=== PATIENT | male | born 1950 | race Caucasian/White ===

== ENCOUNTER 2020-05-14 17:11 | Outpatient (REF) | payer MEDICARE, SELFPAY ==
[2020-05-16 14:19] LABS: COVID-19 RT-PCR UVMMC Result Negative (Negative)
== END 2020-05-14 17:12 | disposition home or self-care (01) ==
LOC: NCHCN 17:11
PROVIDERS: PCP Family Medicine; Visit Provider Family Medicine
DX: Z11.52 Encounter for screening for COVID-19 (principal)
CPT/HCPCS: U0003

== ENCOUNTER 2020-07-03 22:39 | Outpatient (REF) | payer MEDICARE, SELFPAY ==
[2020-07-03 22:08] LABS: Calculated LDL 97 mg/dL (<100); Cholesterol 164 mg/dL (<200); HDL Cholesterol 55 mg/dL (40-60); Triglyceride 63 mg/dL (<150)
== END 2020-07-03 22:40 | disposition home or self-care (01) ==
LOC: NCHCN 22:39
PROVIDERS: PCP Family Medicine; Visit Provider Family Medicine
DX: Z13.220 Encounter for screening for lipoid disorders (principal)
CPT/HCPCS: 80061

== ENCOUNTER 2020-10-30 14:47 | Outpatient (REF) | payer MEDICARE, SELFPAY ==
[2020-11-01 09:57] LABS: Hepatitis C Ab w Rflx HCV PCR Negative (Negative)
== END 2020-10-30 14:48 | disposition home or self-care (01) ==
LOC: NCHCN 14:47
PROVIDERS: PCP Family Medicine; Visit Provider Registered Nurse
DX: Z11.59 Encounter for screening for other viral diseases (principal)
CPT/HCPCS: 86803

== ENCOUNTER 2021-12-19 14:40 | Outpatient (REF) | payer MEDICARE, MEDICAID, SELFPAY ==
[2021-12-19 21:09] LABS: Anion Gap 9.4 mmol/L (3-11); BUN 35 mg/dL (7-18); CO2 25.6 mmol/L (21.0-32.0); CREATININE 1.8 mg/dL (0.70-1.30); Calcium 8.8 mg/dL (8.5-10.1); Chloride 106 mmol/L (98-107); Estimated GFR 39.75 (mL/min/1.73m2); Glucose 93 mg/dL (74-106); Potassium 4.6 mmol/L (3.5-5.1); Sodium 141 mmol/L (136-145)
== END 2021-12-19 14:41 | disposition home or self-care (01) ==
LOC: NCHCN 14:40
PROVIDERS: PCP Family Medicine; Visit Provider Family Medicine
DX: I26.99 Other pulmonary embolism without acute cor pulmonale (principal); J18.9 Pneumonia, unspecified organism; I10 Essential (primary) hypertension
CPT/HCPCS: 80048

== ENCOUNTER 2022-05-29 13:44 | Outpatient (REF) | payer MEDICARE, MEDICAID, SELFPAY ==
[2022-05-29 20:56] LABS: Anion Gap 8.5 mmol/L (3-11); BUN 42 mg/dL (7-18); CO2 25.5 mmol/L (21.0-32.0); CREATININE 1.7 mg/dL (0.70-1.30); Chloride 107 mmol/L (98-107); Estimated GFR 42.57 (mL/min/1.73m2); Glucose 106 mg/dL (74-106); Potassium 4.7 mmol/L (3.5-5.1); Sodium 141 mmol/L (136-145)
== END 2022-05-29 13:45 | disposition home or self-care (01) ==
LOC: NCHCN 13:44
PROVIDERS: PCP Family Medicine; Visit Provider Registered Nurse
DX: I10 Essential (primary) hypertension (principal); Z12.5 Encounter for screening for malignant neoplasm of prostate
CPT/HCPCS: 80048; 84153

== ENCOUNTER 2022-10-20 11:48 | Emergency (ER) | payer MEDICARE, MEDICAID, SELFPAY ==
[2022-10-20 11:57] VITALS: BP 97/62; PULSE 89; RESP 14; TEMP 37; O2SAT 97
[2022-10-20 13:11] VITALS: BP 107/76; PULSE 76; RESP 17; O2SAT 96
--- NOTE | 2022-10-20 14:32 | W.ED.GENAD ---
Discharge Plan Disposition Patient Disposition: Home Condition: Good Discharge Details Clinical Impression: Gout Primary Care Provider: Beckie Bautista ED Provider: Dora Vaughan Home Meds and New Rx's Prescriptions: New indomethacin 50 mg capsule 50 mg PO TID Qty: 21 0RF Rx Instructions: administer with food or milk Continued amlodipine 5 mg Tablet 5 mg PO DAILY benazepril 20 mg Tablet 20 mg PO DAILY Xarelto 20 mg Tablet 20 mg PO QPM Rx Instructions: must administer with evening meal cephalexin 500 mg Capsule 500 mg PO QID Discharge Instructions Instructions: Gout (ED) Additional Instructions: Take the Indocin 50 mg 3 times per day for 7 days. Call your primary care doctor tomorrow for follow-up appointment for next week. The joint at the base of your great toe may get a lot redder and this would be normal with gout. Let your primary care doctor know that we did send a uric acid level. She can start additional medications as needed. Discharge Data Discharge Date/Time-TO BE ENTERED AT DEPARTURE: 10/20/22 14:49 Medical Decision Making Patient was reassured that this is not arterial insufficiency but simply gout. I ordered a uric acid on him but he was discharged without this being done. He was seen in the waiting room after giving me permission to interview and examine him. It was quite a busy day. I explained to him what gout is and how it is treated. He is on Xarelto but will only be taking the Indocin for short period of time. I will not add a PPI at this time. He does promise to call his doctor for follow-up this week. Medical Records Medical records reviewed: Yes I reviewed the patient's medical records. HPI General Date/Time Provider Initiated Documentation: 10/20/22 13:05. HPI Narrative: This 72-year-old male patient presents with a chief complaint of redness and pain in his left great toe. Patient tells me that this began about a week ago but was not really bad. It was a little sore to start with and then got red over a period of days. Its been worse over the past 2 days and he felt like he needed to come in. Patient does have a history of arterial insufficiency in his legs. He is seeing vascular surgery. He has had no fever or chills. His great toe is red asked that his MTP joint. He has no numbness, pallor, or bluish discoloration. Related Data Home Medications Medication Instructions Recorded Confirmed amlodipine 5 mg tablet 5 mg PO DAILY 10/20/22 10/20/22 benazepril 20 mg tablet 20 mg PO DAILY 10/20/22 10/20/22 cephalexin 500 mg capsule 500 mg PO QID 10/20/22 10/20/22 indomethacin 50 mg capsule 50 mg PO TID #21 caps 10/20/22 rivaroxaban 20 mg tablet (Xarelto) 20 mg PO QPM 10/20/22 10/20/22 Previous Rx's Medication Instructions Recorded indomethacin 50 mg capsule 50 mg PO TID #21 caps 10/20/22 Allergies Allergy/AdvReac Type Severity Reaction Status Date / Time No Known Allergies Allergy Unverified 10/20/22 12:02 General Stated Complaint: Orthopedic VIRAL: 4 Review of Systems Constitutional Constitutional: Denies fever(s) and Denies headache(s) Eyes Eyes: Denies blurry vision and Reports other (no redness) ENT Ears, Nose, Mouth, and Throat: Denies dizziness, Denies otalgia, Denies headache(s), Denies nasal congestion, Denies nasal discharge, Denies neck pain and Denies odynophagia Cardiovascular Cardiovascular: Denies chest pain, Denies palpitations and Denies dyspnea Respiratory Respiratory: Denies cough and Denies dyspnea Gastrointestinal Gastrointestinal: Denies abdominal pain, Denies diarrhea, Denies nausea, Denies odynophagia and Denies vomiting Genitourinary Genitourinary: Denies difficulty urinating and Denies dysuria Musculoskeletal Musculoskeletal: Denies neck pain, Denies numbness and Reports other (Has left first great toe redness and pain) Integumentary/Breasts Skin/Breast: Denies erythema and Denies rash Neurologic Neurologic: Denies dizziness, Denies headache(s) and Denies numbness Endocrine Endocrine: Denies palpitations PFSH All Active Problems Gout (Chronic) Social History Smoking/Tobacco Use Status: Never Smoking risk assessment performed?: Yes Alcohol Intake: never Drug use: Never Substance use type: does not use Housing: apartment Do you feel safe at home: Yes Do you feel safe in your relationship?: Yes Exam Const General: no acute distress, well developed, well groomed and not in acute distress Nutritional Appearance: well nourished Orientation: alert and oriented x3 [facility] Head: normocephalic and atraumatic Ears: external ears normal Mouth: oropharynx normal and moist mucous membranes Throat: posterior oropharynx normal Eyes Conjunctivae: conjunctivae normal Neck Neck: full ROM and supple Chest Chest: normal inspection of the chest Resp Effort & Inspection: normal respiratory effort Auscultation: clear to auscultation bilaterally Cardio Rate: regular rate Rhythm: regular rhythm Heart Sounds: no murmurs and no rubs GI Inspection: normal to inspection Palpation: soft, nontender and other (non distended) Auscultation: normal bowel sounds Skin General skin exam: no rashes or lesions noted and other (pink, warm, dry) Neuro General: patient alert, patient awake and patient oriented x3 Speech: speech normal Motor: other (BOWENS) Sensory Exam: no sensory deficits noted Extrem General: normal to inspection (Except left first MTP joint, red and hot to touch), full ROM and pedal edema present Other: Patient had no tenderness to palpation of the left toe movement until I got to his great toe. Movement of his first MTP joint was exquisitely tender and this is where he has redness. Psych Mental Status: mental status grossly normal Speech and Movement: speech and movement normal Affect: normal affect Course Vital Signs Vital signs: Vital Signs Temperature 37.0 C 10/20/22 11:57 Pulse 89 10/20/22 11:57 Respiratory Rate 14 10/20/22 11:57 Blood Pressure 97/62 L 10/20/22 11:57 Pulse Oximetry 97 10/20/22 11:57 Temperature 37.0 C 10/20/22 11:57 Temperature Source Temporal Artery Scan 10/20/22 11:57 Pulse 76 10/20/22 13:11 Respiratory Rate 17 10/20/22 13:11 Respiratory Effort Normal 10/20/22 12:01 Blood Pressure 107/76 10/20/22 13:11 Blood Pressure Position Sitting 10/20/22 11:57 Pulse Oximetry 96 10/20/22 13:11 Oxygen Delivery Method Room Air 10/20/22 13:11 Oxygen Flow Rate 0 10/20/22 13:11 Pain Level 6 10/20/22 11:57
[2022-10-20] MEDS: Indomethacin 25 MG CAP 50 MG PO (14:49)
--- NOTE | 2022-10-20 15:19 | NUR.NOTE ---
Nursing Note: Uric acid level was not drawn prior to PT being discharged.
== END 2022-10-20 14:49 | disposition home or self-care (01) ==
PROVIDERS: Emergency Provider Emergency Medicine; PCP Family Medicine
DX: M10.9 Gout, unspecified (principal)
CPT/HCPCS: 99283; 99284

== ENCOUNTER 2023-04-27 08:28 | Outpatient (REF) | payer MEDICARE, MEDICAID, SELFPAY ==
--- OUTSIDE RECORDS SUMMARY | 2023-04-28 08:31 | XMS_ITS | CCD ---
Author Name Unknown Address [address] [place] [address] [phone] Organization Unknown Address [address] [place] [address] [phone] Care Team Providers Care Explosive Operator Fuse Name Role Phone FRANCISCO LAZAR Attending Physician [phone] FRANCISCO LAZAR Er Physician 7 [phone] BOO Lora Registered Nurse [phone] BHARTI Spears Registered Nurse [phone] Vital Signs Vital Sign Value Unit Date/Time Recent/Initial ? BMI (Body Mass Index) 21.24 kg/m^2 10/29/2022 16: 13 Initial VS Weight Measured 148 lbs 10/29/2022 16:13 Ini tial VS Height 70 in 10/29/2022 16:13 Initial VS BSA (Body Surface Area) 1.82 m^2 10/29/2022 1 6:13 Initial VS BP Systolic 100 mmHg 10/29/2022 16:13 Initial VS BP Diastolic 75 mmHg 10/29/2022 16:13 Initia l VS Respiratory Rate 19 bpm 10/29/2022 16:13 In itial VS Heart Rate 75 bpm 10/29/2022 16:13 Initial VS O2 % BldC Oximetry 99 % 10/29/2022 16:13 Initial VS Body Temperature 36.4 degrees 10/29/2022 16:13 In itial VS BP Systolic 124 mmHg 10/29/2022 20:21 Most Re cent VS BP Diastolic 89 mmHg 10/29/2022 20:21 Most R ecent VS Respiratory Rate 18 bpm 10/29/2022 20:[address] Recent VS Heart Rate 64 bpm 10/29/2022 20:21 Most Rec ent VS O2 % BldC Oximetry 97 % 10/29/2022 20:21 Most Recent VS Allergies Allergy Code Allergy Type Reaction Status No Known Drug Allergies 0 No known drug allergies Active HONEY 0 Food allergy SOB Active Procedures Unknown or Not Available. History of Immunizations Unknown or Not Available. 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 2 BILIRUBIN TOTAL 1975-2 0.5 mg/dL L=0.0 H=1 .3 ALK. PHOS. 6768-6 72 U/L L=46 H=116 SGOT (AST) 1920-8 25 U/L L=15 H=37 SGPT (ALT) 1742-6 28 U/L L=12 H=78 TOTAL PROTEIN 2885-2 6.9 gm/dL L=6.0 H=8.0 ALBUMIN 1751-7 2.6 gm/dL L=3.4 H=5.0 AGE 72 years eGFR (non-Afr.Amer.) 38645-4 36 mL/min eGFR (Afr-Omani) 36814-8 44 mL/min CBC W/ DIFFERENTIAL* - [facility] ct Date/Time: 10/29/2022 17:35 Test Name Code Test Result Test Units Test Ref Rang e WBC 6690-2 6.65 th/cmm L=5.00 H=10.00 NEUT % 70.9 % L=40.0 H=80.0 LYMPH % 15.5 % L=10.0 H=50.0 MONO % 20544-1 12.0 % L=2.0 H=12.0 EOS % 0.8 % L=0.0 H=8.0 BASO % 0.5 % L=0.0 H=3.0 IG % 2514-8 0.3 % L=0.0 H=1.1 NRBC % 07450-3 0.0 % L=0.0 H=0.0 NEUT abs count 751-8 4.7 th/cmm L=1.6 H=8. 4 LYMPH abs count 731-0 1.0 th/cmm L=1.5 H=4 .0 MONO abs count 742-7 0.8 th/cmm L=0.2 H=1. 0 EOS abs count 711-2 0.1 th/cmm L=0.0 H=0.5 BASO abs count 704-7 0.0 th/cmm L=0.0 H=0. 2 IG abs count 45466-7 0.0 th/cmm L=0.0 H=0.1 NRBC abs count 98825-2 0.0 mil/cmm L=0.0 H=0. 0 RBC 789-8 4.03 mil/cmm L=4.30 H=6.20 HEMOGLOBIN 718-7 13.4 gm/dL L=13.0 H=17.0 HEMATOCRIT 4544-3 41 % L=45 H=52 MCV 787-2 101 fL L=82 H=92 MCH 785-6 33.3 pg L=27.0 H=31.0 MCHC 786-4 33.1 % L=32.0 H=36.0 RDW-SD 788-0 45.1 fL L=39.0 H=49.0 PLATELET COUNT 777-3 264 th/cmm L=150 H=45 0 CULT URINE CULTURE* - Collec t Date/Time: 10/29/2022 16:20 Test Name Code Test Result Test Units Test Ref Rang e COLLECTION MODE: 13522-7 CLEAN CATCH N/A URINALYSIS WITH REFLEX CULT IF POSITIVE* - Collect Date/Time: 10/29/2022 16:20 Test Name Code Test Result Test Units Test Ref Rang e COLLECTION MODE: 63458-8 CLEAN CATCH N/A Color 5778-6 YELLOW N/A yellow Appearance 5767-9 CLEAR N/A clear Glucose urine 96495-4 NEGATIVE N/A negative mg /dl Bilirubin 5770-3 NEGATIVE N/A negative Ketones 2514-8 NEGATIVE N/A negative mg/dl Spec gravity 5811-5 1.015 N/A 1.003 - 1.03 0 pH urine 2756-5 6.0 N/A 5.0 - 7.0 Protein 35985-6 NEGATIVE N/A negative mg/dl Urobilinogen 87780-2 0.2 N/A <or= 1 EU/dl Nitrite. 5802-4 NEGATIVE N/A negative Blood 5794-3 SMALL N/A negative Leukocytes. SMALL N/A negative MICROSCOPIC INDICATED N/A WBCs. 88471-0 >100 N/A 0-5 / hpf RBCs 60134-0 0-5 N/A 0-5 / hpf Epith cells 04091-4 none N/A 0-5 / hpf Crystals none N/A none Bacteria minimal N/A none Mucus 8247-9 present N/A none Casts 15507-0 0-5 N/A none /lpf Cast types fine gran N/A Active Medications Medications Administered During Visit Medication Dose Units Frequency Route Date/Time of Last Dose CIPROFLOXACIN TABLET: 500MG 500 MG X1 PO 10/29/2022 20:22 CIPROFLOXACIN TABLET: 500MG 1500 MG X1 PO 10/29/2022 20:23 Encounters Encounter Diagnosis Diagnosis Code Start Date Urinary tract infection, site not specified N390 10/29/2022 Social History Smoking Status Code Start Date End Date Never smoker [id number] Patient Decision Aids Unknown or Not Available. Discharge Instructions You were admitted to [facility] on 10/29/2022 16:07 with a principal diagnosis of Urinary tract infection, site not specified You had the following tests done:CBC W/ DIFFERENTIAL*COMPREHENSIVE METABOLIC PANEL (CMP)CULT URINE CULTURE*URINALYSIS WITH REFLEX CULT IF POSITIVE* You were discharged from [facility] on 10/29/2022 20:23 Should you have any questions prior to discharge, please contact a member of your healthcare team. If you have left the hospital and have any questions, please contact your primary care physician. Chief Complaint and Reason For Visit Chief Complaint Date of Onset KIDNEY INFECTION 10/29/2022 Function Status Unknown or Not Available. Plan of Care Unknown or Not Available. Referral/Transition of Care Unknown or Not Available.
--- OUTSIDE RECORDS SUMMARY | 2023-04-28 08:31 | XMS_ITS | CCD ---
Author Name Unknown Address [address] [place] [address] [phone] Organization Unknown Address [address] [place] [address] [phone] Care Team Providers Care Phlebotomist Lab Assistant Name Role Phone ERVIN MENDEZ Attending Physician [phone] Vital Signs Unknown or Not Available. Allergies Allergy Code Allergy Type Reaction Status No Known Drug Allergies 0 No known drug allergies Active HONEY 0 Food allergy SOB Active Procedures Unknown or Not Available. History of Immunizations Unknown or Not Available. 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 114802155 Active Results CULT URINE CULTURE* - [facility] t Date/Time: 10/11/2022 12:00 Test Name Code Test Result Test Units Test Ref Rang e COLLECTION MODE: 35848-8 NOT STATED N/A Active Medications Medication Code Dose Units Frequency Route Modificatio n Start Date/Time Keflex 500MG Oral Capsule 649592 1 CAPSULE FOUR TIMES A DAY ORAL 10/18/2022 15:06 Prescription Detail TAKE 1 CAPSULE ORAL FOUR TIMES A DAY Benazepril HCl AvPak 20MG Oral Tablet 295694 1 TABLET DAILY ORAL 11/26/2021 13:16 Prescription Detail TAKE 1 TABLET ORAL DAILY amLODIPine Besylate 5MG Oral Tablet 491310 5 MILLIGRAMS BEDTIME ORAL 022 11:44 Prescription Detail TAKE 5 MILLIGRAMS ORAL BEDTIME Xarelto 20MG Oral Tablet 0545680 1 TABLET DAILY ORAL 11/27/19 22 10:44 Prescription Detail TAKE 1 TABLET ORAL DAILY STARTING 12/16(Af ter taking 15mg twice daily for 20 days) Medications Administered During Visit Unknown or Not Available. Encounters Encounter Diagnosis Diagnosis Code Start Date Nocturia [id number] 10/11/2022 Social History Smoking Status Code Start Date End Date Never smoker 163790256 Patient Decision Aids Unknown or Not Available. Discharge Instructions You were admitted to [facility] on 10/11/2022 13:01 with a principal diagnosis of Nocturia You had the following tests done:CULT URINE CULTURE* You were discharged from [facility] on 10/11/2022 13:01 Should you have any questions prior to discharge, please contact a member of your healthcare team. If you have left the hospital and have any questions, please contact your primary care physician. Chief Complaint and Reason For Visit Unknown or Not Available. Function Status Unknown or Not Available. Plan of Care Unknown or Not Available. Referral/Transition of Care Unknown or Not Available.
--- OUTSIDE RECORDS SUMMARY | 2023-04-28 08:31 | XMS_ITS | CCD ---
Author Name Unknown Address [address] [place] [address] [phone] Organization Unknown Address [address] [place] [address] [phone] Care Team Providers Care Field Cane Scale Clerk Name Role Phone FRANCISCO LAZAR Attending Physician [phone] FRANCISCO LAZAR Er Physician [phone] BHARTI Spears Registered Nurse [phone] Vital Signs Vital Sign Value Unit Date/Time Recent/Initial ? BMI (Body Mass Index) 21.41 kg/m^2 11/01/2022 17: 59 Initial VS Weight Measured 145 lbs 11/01/2022 17:59 Ini tial VS Height 69 in 11/01/2022 17:59 Initial VS BSA (Body Surface Area) 1.79 m^2 11/01/2022 1 7:59 Initial VS BP Systolic 106 mmHg 11/01/2022 17:59 Initial VS BP Diastolic 73 mmHg 11/01/2022 17:59 Initia l VS Respiratory Rate 18 bpm 11/01/2022 17:59 In itial VS Heart Rate 74 bpm 11/01/2022 17:59 Initial VS O2 % BldC Oximetry 97 % 11/01/2022 17:59 Initial VS Body Temperature 36.6 degrees 11/01/2022 17:59 In itial VS Allergies Allergy Code Allergy Type Reaction Status No Known Drug Allergies 0 No known drug allergies Active HONEY 0 Food allergy SOB Active Procedures Unknown or Not Available. History of Immunizations Unknown or Not Available. 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 Active Medications Unknown or Not Available. Medications Administered During Visit Unknown or Not Available. Encounters Encounter Diagnosis Diagnosis Code Start Date Contusion of left foot, initial encounter [id number] 11/01/2022 Social History Smoking Status Code Start Date End Date Never smoker 410538084 Patient Decision Aids Unknown or Not Available. Discharge Instructions You were admitted to [facility] on 11/01/2022 17:44 with a principal diagnosis of Contusion of left foot, initial encounter You were discharged from [facility] on 11/01/2022 19:00 Should you have any questions prior to discharge, please contact a member of your healthcare team. If you have left the hospital and have any questions, please contact your primary care physician. Chief Complaint and Reason For Visit Chief Complaint Date of Onset PAINFUL AND SWOLEN LT TOES 11/01/2022 Function Status Unknown or Not Available. Plan of Care Unknown or Not Available. Referral/Transition of Care Unknown or Not Available.
--- OUTSIDE RECORDS SUMMARY | 2023-04-28 08:32 | XMS_ITS | CCD ---
Author Name Unknown Address [address] [place] [address] [id number] Organization Unknown Address [address] [place] [address] [phone] Care Team Providers Care Research Statistician Name Role Phone ERVIN MENDEZ Attending Physician [phone] Vital Signs Unknown or Not Available. Allergies Allergy Code Allergy Type Reaction Status No Known Drug Allergies 0 No known drug allergies Active HONEY 0 Food allergy SOB Active Procedures Unknown or Not Available. History of Immunizations Unknown or Not Available. 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 004264965 Active Results CULT URINE CULTURE* - Colle t Date/Time: 09/15/2022 10:00 Test Name Code Test Result Test Units Test Ref Rang e COLLECTION MODE: 71031-6 CATH N/A Active Medications Medication Code Dose Units Frequency Route Modificatio n Start Date/Time Keflex 500MG Oral Capsule 778101 1 CAPSULE FOUR TIMES A DAY ORAL 10/18/2022 15:06 Prescription Detail TAKE 1 CAPSULE ORAL FOUR TIMES A DAY Benazepril HCl AvPak 20MG Oral Tablet 954908 1 TABLET DAILY ORAL 11/26/2021 13:16 Prescription Detail TAKE 1 TABLET ORAL DAILY amLODIPine Besylate 5MG Oral Tablet 051084 5 MILLIGRAMS BEDTIME ORAL 022 11:44 Prescription Detail TAKE 5 MILLIGRAMS ORAL BEDTIME Xarelto 20MG Oral Tablet 3334716 1 TABLET DAILY ORAL 11/27/19 22 10:44 Prescription Detail TAKE 1 TABLET ORAL DAILY STARTING 12/16(Af ter taking 15mg twice daily for 20 days) Medications Administered During Visit Unknown or Not Available. Encounters Encounter Diagnosis Diagnosis Code Start Date Lower urinary tract symptoms due to benign prostatic hypertrophy [id number] 09/15/2022 Social History Smoking Status Code Start Date End Date Never smoker 979051544 Patient Decision Aids Unknown or Not Available. Discharge Instructions You were admitted to on 09/15/2022 12:49 with a principal diagnosis of Benign prostatic hyperplasia with lower urinary tract symptoms You had the following tests done:CULT URINE CULTURE* You were discharged from on 09/15/2022 12:49 Should you have any questions prior to [...]
--- OUTSIDE RECORDS SUMMARY | 2023-04-28 08:32 | XMS_ITS | CCD ---
Author Name Unknown Address [address] [place] [address] [phone] Organization Unknown Address [address] [place] [address] [phone] Care Team Providers Care Wire Transfer Clerk Name Role Phone VANDA ORDONEZ Attending Physician [phone] Vital Signs Unknown or Not Available. Allergies Allergy Code Allergy Type Reaction Status No Known Drug Allergies 0 No known drug allergies Active HONEY 0 Food allergy SOB Active Procedures Unknown or Not Available. History of Immunizations Unknown or Not Available. 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 Active Medications Medication Code Dose Units Frequency Route Modificatio n Start Date/Time Keflex 500MG Oral Capsule 833617 1 CAPSULE FOUR TIMES A DAY ORAL 10/18/2022 15:06 Prescription Detail TAKE 1 CAPSULE ORAL FOUR TIMES A DAY Benazepril HCl AvPak 20MG Oral Tablet 378107 1 TABLET DAILY ORAL 11/26/2021 13:16 Prescription Detail TAKE 1 TABLET ORAL DAILY amLODIPine Besylate 5MG Oral Tablet 582337 5 MILLIGRAMS BEDTIME ORAL 022 11:44 Prescription Detail TAKE 5 MILLIGRAMS ORAL BEDTIME Xarelto 20MG Oral Tablet 6092522 1 TABLET DAILY ORAL 11/27/19 22 10:44 Prescription Detail TAKE 1 TABLET ORAL DAILY STARTING 12/16(Af ter taking 15mg twice daily for 20 days) Medications Administered During Visit Unknown or Not Available. Encounters Encounter Diagnosis Diagnosis Code Start Date Solitary pulmonary nodule R911 2022 Social History Smoking Status Code Start Date End Date Never smoker 610664668 Patient Decision Aids Unknown or Not Available. Discharge Instructions You were admitted to [facility] on 06/12/2022 14:57 with a principal diagnosis of Solitary pulmonary nodule You were discharged from [facility] on 06/12/2022 14:57 Should you have any questions prior to discharge, please contact a member of your healthcare team. If you have left the hospital and have any questions, please contact your primary care physician. Chief Complaint and Reason For Visit Chief Complaint Date of Onset PULMONARY NODULE Function Status Unknown or Not Available. Plan of Care Unknown or Not Available. Referral/Transition of Care Unknown or Not Available.
--- OUTSIDE RECORDS SUMMARY | 2023-04-28 08:32 | XMS_ITS | CCD ---
Author Name Unknown Address [address] [place] [address] [phone] Organization Unknown Address [address] [place] [address] [phone] Care Team Providers Care Surgical Consultant Name Role Phone PIERO NAJERA Attending Physician [phone] Vital Signs Unknown or Not Available. Allergies Allergy Code Allergy Type Reaction Status No Known Drug Allergies 0 No known drug allergies Active HONEY 0 Food allergy SOB Active Procedures Unknown or Not Available. History of Immunizations Unknown or Not Available. Problems Problem Code Start Date Resolved Date Status Pneumonia 560655473 Active Pleurisy 007129990 Active VICKI - acute kidney injury 22877498 Active Hypertension 83406051 Active CKD stage 3 835773422 Active Multiple subsegmental pulmon merlyn emboli without acute cor pulmonale 29906177 Acti ve Chronic DVT of right femoral vein 145474671 Active Results Unknown or Not Available. Active Medications Medication Code Dose Units Frequency Route Modificatio n Start Date/Time Keflex 500MG Oral Capsule 923180 1 CAPSULE FOUR TIMES A DAY ORAL 10/18/2022 15:06 Prescription Detail TAKE 1 CAPSULE ORAL FOUR TIMES A DAY Benazepril HCl AvPak 20MG Oral Tablet 639552 1 TABLET DAILY ORAL 11/26/2021 13:16 Prescription Detail TAKE 1 TABLET ORAL DAILY amLODIPine Besylate 5MG Oral Tablet 654307 5 MILLIGRAMS BEDTIME ORAL 022 11:44 Prescription Detail TAKE 5 MILLIGRAMS ORAL BEDTIME Xarelto 20MG Oral Tablet 6000743 1 TABLET DAILY ORAL 11/27/19 22 10:44 Prescription Detail TAKE 1 TABLET ORAL DAILY STARTING 12/16(Af ter taking 15mg twice daily for 20 days) Medications Administered During Visit Unknown or Not Available. Encounters Encounter Diagnosis Diagnosis Code Start Date Saddle embolus of pulmonary artery without acute cor pulmonale I2692 11/24/2021 Social History Smoking Status Code Start Date End Date Never smoker [id number] Patient Decision Aids Unknown or Not Available. Discharge Instructions You were admitted to [facility] on 11/24/2021 01:43 with a principal diagnosis of Saddle embolus of pulmonary artery without acute cor pulmonale You were discharged from [facility] on 11/26/2021 01:44 Should you have any questions prior to [...]
--- OUTSIDE RECORDS SUMMARY | 2023-04-28 08:32 | XMS_ITS | Patient Health Record ---
Author Name Unknown Organization [facility] Address [address] [place] [address] Care Team Providers Care Roof Plumber Name Role Phone Matilde Leone Primary Care Provider Christi Bucio Unavailable [phone] ALLERGIES Allergen (clinical drug ingredient) Drug/Non Drug Allergy documented on EMR Reaction Allergy Type Onset Date Status Honey Unknown Drug Allergy Active Ginseng Unknown Drug Allergy Active RESULTS Component Value Reference Range Notes Urine Culture and Sensitivit y Reviewed date:10/19/2022 09:13:58 AM Interpretation:Abnormal Performing Lab: Notes/Report: Abnormal Urine Culture and Sensitivit y Reviewed date:09/23/2022 08:46:48 AM Interpretation:Enterococcus Faecalis Performing Lab: Notes/Report: Enterococcus Faecalis -Urinalysis Reviewed date:09/24/2022 11:42:33 AM Interpretation: Performing Lab: Notes/Report: WBC Nitrate n Urobilinogen 3.5 Protein n pH 6.0 Occult Blood n Specific [place] 1.030 Ketones n Bilirubin n Color Appearance Glucose n REASON FOR REFERRAL No Information MEDICATIONS Medication SIG (Take, Route, Frequency, Duration) Notes Start Date End Date Status Finasteride 5 MG 1 tablet Orally Once a day for 90 days 09/10/2022 Active Finasteride 5 MG 1 tablet Orally Once a day for 30 day(s) 01/19/2023 Active Xarelto 20 MG 1 tablet with food Orally Once a day for 30 day(s) Active Ciprofloxacin HCl 500 MG 1 tablet Orally every 12 hrs for 5 days 09/21/2022 Not-Taking Benazepril HCl 20 MG 1 tablet Orally Onc e a day for 30 day(s) Active amLODIPine Besylate 5 MG 1 tablet Orally Once a day for 30 day(s) Active IMMUNIZATIONS Vaccine Route Administration Date Status Comme nts Covid19 Unknown 07/15/2020 Administered Covid19 Unknown 08/12/2022 Administered SOCIAL HISTORY Tobacco Use: Social History Observation Description Date Details (start date - stop date) Former Smoker NA - NA Sex Assigned At : Social History Observation Description Sex Assigned At Unknown Tobacco Use/Smoking: Question Answer Notes Are you a former smoker PROBLEMS Problem Type ICD Code Onset Dates Problem Status W/U Status Risk SNOMED Code Notes Problem Essential (primary) hypertension (I10) Active confirmed Essential hypertension (43233361) Problem Nocturia (R35.1) Active confirmed Noctu rosenda (802879569) Problem Benign prostatic hyperplasia with lower urinary tract symptoms (N40.1) Active confirmed Lower urinary tract symptoms due to benign prostatic hypertrophy (70305690860874) VITAL SIGNS Blood pressure diastolic 60 mm Hg 12/22/2022 Height 68.75 in 12/22/2022 Blood pressure systolic 110 mm Hg 12/22/2022 Weight 150 lbs 12/22/2022 BMI 22.31 kg/m2 12/22/2022 PROCEDURES Procedure Date Ordered Date Performed Result Body Sit e - PVR (Post-Void Residual Volume) 09/10/2022 N/ A - PVR (Post-Void Residual Volume) 09/15/2022 N/ A - PVR (Post-Void Residual Volume) 12/22/2022 12/22/2022 N/ A Encounters Encounter Location Date Provider Diagnosis [facility] [address] [address] 09/10/2022 [facility] Benign prostatic hyperplasia with lower urinary tract symptoms N40.1 and Nocturia R35.1 [facility] [address] [address] 09/15/2022 Christi Narvae[facility] Benign prostatic hyperplasia with lower urinary tract symptoms N40.1 and Nocturia R35.1 [facility] [address] [address] 09/21/2022 [facility] [address] [address] 10/08/2022 [facility] [address] [address] 12/22/2022 Christi Narvae[facility] Benign prostatic hyperplasia with lower urinary tract symptoms N40.1 ASSESSMENTS Encounter Date Diagnosis Assessment Notes Treatment Notes Treatment Clinical Notes 09/10/2022 Nocturia (ICD-10 - R35.1) 09/10/2022 Benign prostatic hyperplasia with lower urinary tract symptoms (ICD-10 - N40.1) pt. reported not having painful urination within the last 1-2 weeks. Complains of urgent urination with high frequency. Pt stated after urinaing once he feels like he needs to go again roughly 15 mins later, and has an output around the same amount as the first time he urinated. Pt has been perscribed tamsulosin, however stopped taking it about a year ago on his own. MD aware of this. Pt had a hernia opperation at [facility] 3 years ago and a procedure 14 years ago on his urinary track. Pt is on blood thinners due to a blockage in his left leg as well as a medication for circulation. Pt was unable to recall the names or dosage of these medications. 09/15/2022 Nocturia (ICD-10 - R35.1) 09/15/2022 Benign prostatic hyperplasia with lower urinary tract symptoms (ICD-10 - N40.1) pt. reported not taking finasteride dispite being perscribed to him. MD aware. Pt has been self-cathing and states it has been going well. No new or additional urinary complaints. 12/22/2022 Benign prostatic hyperplasia with lower urinary tract symptoms (ICD-10 - N40.1) PLAN OF TREATMENT Next Appt Details Provider Name:Christi Alonzo Teofilo dsouza, 12/21/2023 01:00:00 PM, [address] [place], [address], Insurance Providers Payer Name Payer Address Payer Phone Subscriber Number Group Number Insured Name Patient Relationship to Insured Coverage Start Date Coverage End Date [employer] of [place] - [id number] [address] [place] [phone] [id number] VIELKA LUGO Self - patient is the insured [employer] of [place] [address] [place] [phone] [id number] VIELKA LUGO Self - patient is the insured MEDICAL (GENERAL) HISTORY Medical History History ICD Code Pulmonary Nodule L Hand Pain Unintentional Weight Loss Pulmonary Embolism DVT Chronic Kidney Disease Depression Former Smoker Bilateral Leg Pain Hernia Seborrheic Keratosis Surgical History Surgery Date(Month/Year) TURP in [place] [address]
--- OUTSIDE RECORDS SUMMARY | 2023-04-28 08:32 | XMS_ITS | CCD ---
Author Name Unknown Address [address] [place] [address] [phone] Organization Unknown Address [address] [place] [address] [phone] Care Team Providers Care Access Analyst Name Role Phone HAILEY CM MD Attending Physician [phone] CLARA MACEDO Er Physician [phone] Vital Signs Unknown or Not Available. Allergies Allergy Code Allergy Type Reaction Status HONEY 0 Food allergy SOB Active Procedures Unknown or Not Available. History of Immunizations Unknown or Not Available. Problems Problem Code Start Date Resolved Date Status Pneumonia 838241898 Active Pleurisy 648221776 Active VICKI - acute kidney injury 36169729 Active Hypertension 74665532 Active CKD stage 3 477752304 Active Multiple subsegmental pulmon merlyn emboli without acute cor pulmonale 57268801 Acti ve Chronic DVT of right femoral vein 672250960 Active BPH 479707710 11/23/2021 Resolved DVT of leg 743123029 11/23/2021 Resolved Results Unknown or Not Available. Active Medications Medication Code Dose Units Frequency Route Modificatio n Start Date/Time Keflex 500MG Oral Capsule 505832 1 CAPSULE FOUR TIMES A DAY ORAL 10/18/2022 15:06 Prescription Detail TAKE 1 CAPSULE ORAL FOUR TIMES A DAY Benazepril HCl AvPak 20MG Oral Tablet 046536 1 TABLET DAILY ORAL 11/26/2021 13:16 Prescription Detail TAKE 1 TABLET ORAL DAILY amLODIPine Besylate 5MG Oral Tablet 679775 5 MILLIGRAMS BEDTIME ORAL 022 11:44 Prescription Detail TAKE 5 MILLIGRAMS ORAL BEDTIME Xarelto 20MG Oral Tablet 3350028 1 TABLET DAILY ORAL 11/27/19 22 10:44 Prescription Detail TAKE 1 TABLET ORAL DAILY STARTING 12/16(Af ter taking 15mg twice daily for 20 days) Medications Administered During Visit Unknown or Not Available. Encounters Encounter Diagnosis Diagnosis Code Start Date Acute embolism and thrombosis of right popliteal vein [id number] 10/10/2020 Social History Smoking Status Code Start Date End Date Never smoker 918167039 Patient Decision Aids Unknown or Not Available. Discharge Instructions You were admitted to [place] [address] on 10/10/2020 14:46 with a principal diagnosis of Acute embolism and thrombosis of right popliteal vein You were discharged from [facility] on 10/10/2020 18:52 Should you have any questions prior to discharge, please contact a member of your healthcare team. If you have left the hospital and have any questions, please contact your primary care physician. Chief Complaint and Reason For Visit Chief Complaint Date of Onset POSSIBLE BLOOD CLOT Function Status Unknown or Not Available. Plan of Care Unknown or Not Available. Referral/Transition of Care Unknown or Not Available.
--- OUTSIDE RECORDS SUMMARY | 2023-04-28 08:32 | XMS_ITS | CCD ---
Author Name Unknown Address [address] [place] [address] [id number] Organization Unknown Address [address] [place] [address] [phone] Care Team Providers Care Missile And Missile Checkout Technician Name Role Phone PIERO NAJERA Attending Physician [phone] PIERO NAJERA Er Physician [phone] CHARLES BRISENO (Secondary) Physician [phone] KARINA Herr Registered Nurse [phone] Vital Signs Vital Sign Value Unit Date/Time Recent/Initial ? BMI (Body Mass Index) 30.27 kg/m^2 11/23/2021 20: 25 Initial VS Weight Measured 155 lbs 11/23/2021 20:25 Ini tial VS Height 60 in 11/23/2021 20:25 Initial VS BSA (Body Surface Area) 1.73 m^2 11/23/2021 2 0:25 Initial VS BP Systolic 130 mmHg 11/23/2021 20:25 Initial VS BP Diastolic 104 mmHg 11/23/2021 20:25 Initia l VS Respiratory Rate 22 bpm 11/23/2021 20:25 In itial VS Heart Rate 88 bpm 11/23/2021 20:25 Initial VS O2 % BldC Oximetry 93 % 11/23/2021 20:25 Initial VS Body Temperature 36.8 degrees 11/23/2021 20:25 In itial VS Weight Measured 148.7 lbs 11/23/2021 23:55 Mos t Recent VS Respiratory Rate 20 bpm 11/26/2021 07:[address] Recent VS O2 % BldC Oximetry 94 % 11/26/2021 07:30 Most Recent VS Body Temperature 36.5 degrees 11/26/2021 07:[address] Recent VS BP Systolic 138 mmHg 11/26/2021 13:38 Most Re cent VS BP Diastolic 108 mmHg 11/26/2021 13:38 Most R ecent VS Heart Rate 88 bpm 11/26/2021 13:38 Most Rec ent VS Allergies Allergy Code Allergy Type Reaction Status No Known Drug Allergies 0 No known drug allergies Active HONEY 0 Food allergy SOB Active Procedures Unknown or Not Available. History of Immunizations Unknown or Not Available. 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 2 AGE 71 years eGFR (non-Afr.Amer.) 20270-5 47 mL/min eGFR (Afr-[place]) 56743-7 57 mL/min BASIC METABOLIC PANEL (BMP) - Collect Date/Time: 11/24/2021 06:20 Test Name Code Test Result Test Units Test Ref Rang e GLUCOSE 2345-7 293 mg/dL L=70 H=116 BUN 3094-0 27 mg/dL L=6 H=25 CREATININE 2160-0 1.78 mg/dL L=0.67 H=1.17 SODIUM SERUM 2951-2 138 mmol/L L=136 H=145 POTASSIUM SERUM 2823-3 4.4 mmol/L L=3.4 H=5 .2 CHLORIDE SERUM 2075-0 104 mmol/L L=96 H=110 CARBON DIOXIDE (CO2) 2028-9 24 mmol/L L=22 H=34 ANION GAP 46360-0 10.0 mmol/L CALCIUM SERUM 03725-6 8.4 mg/dL L=8.2 H=10. 2 AGE 71 years eGFR (non-Afr.Amer.) 39384-2 38 mL/min eGFR (Afr-[place]) 62233-2 46 mL/min COMPREHENSIVE METABOLIC PANE L (CMP) - Collect Date/Time: 11/23/2021 20:10 Test Name Code Test Result Test Units Test Ref Rang e GLUCOSE 2345-7 120 mg/dL L=70 H=116 BUN 3094-0 33 mg/dL L=6 H=25 CREATININE 2160-0 1.90 mg/dL L=0.67 H=1.17 SODIUM SERUM 2951-2 137 mmol/L L=136 H=145 POTASSIUM SERUM 2823-3 4.4 mmol/L L=3.4 H=5 .2 CHLORIDE SERUM 2075-0 102 mmol/L L=96 H=110 CARBON DIOXIDE (CO2) 2027-9 26 mmol/L L=22 H=34 ANION GAP 28097-4 8.7 mmol/L CALCIUM SERUM 35844-9 8.9 mg/dL L=8.2 H=10. 2 BILIRUBIN TOTAL 1975-2 1.2 mg/dL L=0.0 H=1 .3 ALK. PHOS. 6768-6 109 U/L L=46 H=116 SGOT (AST) 1920-8 18 U/L L=15 H=37 SGPT (ALT) 1742-6 19 U/L L=12 H=78 TOTAL PROTEIN 2885-2 7.8 gm/dL L=6.0 H=8.0 ALBUMIN 1751-7 3.5 gm/dL L=3.4 H=5.0 AGE 71 years eGFR (non-Afr.Amer.) 62194-6 35 mL/min eGFR (Afr-[place]) 41398-5 42 mL/min GLUCOSE FINGER/HEEL CAPILLAR Y - Collect Date/Time: 11/26/2021 07:47 Test Name Code Test Result Test Units Test Ref Rang e GLUCOSE CAP 102 mg/dL L=70 H=116 GLUCOSE FINGER/HEEL CAPILLAR Y - Collect Date/Time: 11/25/2021 20:56 Test Name Code Test Result Test Units Test Ref Rang e GLUCOSE CAP 115 mg/dL L=70 H=116 GLUCOSE FINGER/HEEL CAPILLAR Y - Collect Date/Time: 11/25/2021 16:32 Test Name Code Test Result Test Units Test Ref Rang e GLUCOSE CAP 165 mg/dL L=70 H=116 GLUCOSE FINGER/HEEL CAPILLAR Y - Collect Date/Time: 11/25/2021 12:09 Test Name Code Test Result Test Units Test Ref Rang e GLUCOSE CAP 109 mg/dL L=70 H=116 GLUCOSE FINGER/HEEL CAPILLAR Y - Collect Date/Time: 11/25/2021 07:28 Test Name Code Test Result Test Units Test Ref Rang e GLUCOSE CAP 115 mg/dL L=70 H=116 GLUCOSE FINGER/HEEL CAPILLAR Y - Collect Date/Time: 11/24/2021 20:58 Test Name Code Test Result Test Units Test Ref Rang e GLUCOSE CAP 191 mg/dL L=70 H=116 GLUCOSE FINGER/HEEL CAPILLAR Y - Collect Date/Time: 11/24/2021 17:09 Test Name Code Test Result Test Units Test Ref Rang e GLUCOSE CAP 235 mg/dL L=70 H=116 GLUCOSE FINGER/HEEL CAPILLAR Y - Collect Date/Time: 11/24/2021 14:07 Test Name Code Test Result Test Units Test Ref Rang e GLUCOSE CAP 255 mg/dL L=70 H=116 GLUCOSE FINGER/HEEL CAPILLAR Y - Collect Date/Time: 11/24/2021 12:00 Test Name Code Test Result Test Units Test Ref Rang e GLUCOSE CAP 255 mg/dL L=70 H=116 HEMOGLOBIN A1C* - Collect Da te/Time: 11/24/2021 14:34 Test Name Code Test Result Test Units Test Ref Rang e Hgb A1c 4548-4 5.8 % L=3.8 H=5.7 MEAN BLOOD GLUCOSE 15020-2 107 mg/dL TROPONIN HIGH SENSITIVITY* - Collect Date/Time: 11/23/2021 20:10 Test Name Code Test Result Test Units Test Ref Rang e TROPONIN HS 8.8 pg/mL L=0.0 H=60.4 Specimen seq. Random N/A CBC W/ DIFFERENTIAL* - Colle ct Date/Time: 11/26/2021 06:15 Test Name Code Test Result Test Units Test Ref Rang e WBC 6690-2 5.10 th/cmm L=5.00 H=10.00 NEUT % 69.6 % L=40.0 H=80.0 LYMPH % 20.0 % L=10.0 H=50.0 MONO % 66974-7 8.0 % L=2.0 H=12.0 EOS % 1.4 % L=0.0 H=8.0 BASO % 0.6 % L=0.0 H=3.0 IG % 2514-8 0.4 % L=0.0 H=1.1 NRBC % 89853-6 0.0 % L=0.0 H=0.0 NEUT abs count 751-8 3.6 th/cmm L=1.6 H=8. 4 LYMPH abs count 731-0 1.0 th/cmm L=1.5 H=4 .0 MONO abs count 742-7 0.4 th/cmm L=0.2 H=1. 0 EOS abs count 711-2 0.1 th/cmm L=0.0 H=0.5 BASO abs count 704-7 0.0 th/cmm L=0.0 H=0. 2 IG abs count 57735-5 0.0 th/cmm L=0.0 H=0.1 NRBC abs count 68380-6 0.0 mil/cmm L=0.0 H=0. 0 RBC 789-8 4.79 mil/cmm L=4.30 H=6.20 HEMOGLOBIN 718-7 15.9 gm/dL L=13.0 H=17.0 HEMATOCRIT 4544-3 47 % L=45 H=52 MCV 787-2 99 fL L=82 H=92 MCH 785-6 33.2 pg L=27.0 H=31.0 MCHC 786-4 33.6 % L=32.0 H=36.0 RDW-SD 788-0 45.1 fL L=39.0 H=49.0 PLATELET COUNT 777-3 160 th/cmm L=150 H=45 0 CBC W/ DIFFERENTIAL* - [facility] ct Date/Time: 11/25/2021 06:58 Test Name Code Test Result Test Units Test Ref Rang e WBC 6690-2 11.57 th/cmm L=5.00 H=10.00 NEUT % 84.7 % L=40.0 H=80.0 LYMPH % 7.2 % L=10.0 H=50.0 MONO % 01422-6 7.4 % L=2.0 H=12.0 EOS % 0.2 % L=0.0 H=8.0 BASO % 0.1 % L=0.0 H=3.0 IG % 2514-8 0.4 % L=0.0 H=1.1 NRBC % 00501-6 0.0 % L=0.0 H=0.0 NEUT abs count 751-8 9.8 th/cmm L=1.6 H=8. 4 LYMPH abs count 731-0 0.8 th/cmm L=1.5 H=4 .0 MONO abs count 742-7 0.9 th/cmm L=0.2 H=1. 0 EOS abs count 711-2 0.0 th/cmm L=0.0 H=0.5 BASO abs count 704-7 0.0 th/cmm L=0.0 H=0. 2 IG abs count 46629-0 0.1 th/cmm L=0.0 H=0.1 NRBC abs count 77004-6 0.0 mil/cmm L=0.0 H=0. 0 RBC 789-8 4.31 mil/cmm L=4.30 H=6.20 HEMOGLOBIN 718-7 14.2 gm/dL L=13.0 H=17.0 HEMATOCRIT 4544-3 42 % L=45 H=52 MCV 787-2 97 fL L=82 H=92 MCH 785-6 32.9 pg L=27.0 H=31.0 MCHC 786-4 34.1 % L=32.0 H=36.0 RDW-SD 788-0 43.8 fL L=39.0 H=49.0 PLATELET COUNT 777-3 145 th/cmm L=150 H=45 0 CBC W/ DIFFERENTIAL* - Colle ct Date/Time: 11/24/2021 14:34 Test Name Code Test Result Test Units Test Ref Rang e WBC 6690-2 9.77 th/cmm L=5.00 H=10.00 NEUT % 91.3 % L=40.0 H=80.0 LYMPH % 3.5 % L=10.0 H=50.0 MONO % 43301-4 4.7 % L=2.0 H=12.0 EOS % 0.0 % L=0.0 H=8.0 BASO % 0.1 % L=0.0 H=3.0 IG % 2514-8 0.4 % L=0.0 H=1.1 NRBC % 93516-4 0.0 % L=0.0 H=0.0 NEUT abs count 751-8 8.9 th/cmm L=1.6 H=8. 4 LYMPH abs count 731-0 0.3 th/cmm L=1.5 H=4 .0 MONO abs count 742-7 0.5 th/cmm L=0.2 H=1. 0 EOS abs count 711-2 0.0 th/cmm L=0.0 H=0.5 BASO abs count 704-7 0.0 th/cmm L=0.0 H=0. 2 IG abs count 51080-2 0.0 th/cmm L=0.0 H=0.1 NRBC abs count 52036-0 0.0 mil/cmm L=0.0 H=0. 0 RBC 789-8 4.52 mil/cmm L=4.30 H=6.20 HEMOGLOBIN 718-7 14.9 gm/dL L=13.0 H=17.0 HEMATOCRIT 4544-3 44 % L=45 H=52 MCV 787-2 97 fL L=82 H=92 MCH 785-6 33.0 pg L=27.0 H=31.0 MCHC 786-4 33.9 % L=32.0 H=36.0 RDW-SD 788-0 43.2 fL L=39.0 H=49.0 PLATELET COUNT 777-3 152 th/cmm L=150 H=45 0 CBC W/ DIFFERENTIAL* - Colle ct Date/Time: 11/24/2021 06:20 Test Name Code Test Result Test Units Test Ref Rang e WBC 6690-2 6.76 th/cmm L=5.00 H=10.00 NEUT % 93.9 % L=40.0 H=80.0 LYMPH % 3.4 % L=10.0 H=50.0 MONO % 88756-4 2.1 % L=2.0 H=12.0 EOS % 0.0 % L=0.0 H=8.0 BASO % 0.3 % L=0.0 H=3.0 IG % 2514-8 0.3 % L=0.0 H=1.1 NRBC % 58962-9 0.0 % L=0.0 H=0.0 NEUT abs count 751-8 6.4 th/cmm L=1.6 H=8. 4 LYMPH abs count 731-0 0.2 th/cmm L=1.5 H=4 .0 MONO abs count 742-7 0.1 th/cmm L=0.2 H=1. 0 EOS abs count 711-2 0.0 th/cmm L=0.0 H=0.5 BASO abs count 704-7 0.0 th/cmm L=0.0 H=0. 2 IG abs count 25653-4 0.0 th/cmm L=0.0 H=0.1 NRBC abs count 51569-7 0.0 mil/cmm L=0.0 H=0. 0 RBC 789-8 4.73 mil/cmm L=4.30 H=6.20 HEMOGLOBIN 718-7 15.8 gm/dL L=13.0 H=17.0 HEMATOCRIT 4544-3 46 % L=45 H=52 MCV 787-2 98 fL L=82 H=92 MCH 785-6 33.4 pg L=27.0 H=31.0 MCHC 786-4 34.3 % L=32.0 H=36.0 RDW-SD 788-0 43.2 fL L=39.0 H=49.0 PLATELET COUNT 777-3 127 th/cmm L=150 H=45 0 CBC W/ DIFFERENTIAL* - Colle ct Date/Time: 11/23/2021 20:10 Test Name Code Test Result Test Units Test Ref Rang e WBC 6690-2 9.55 th/cmm L=5.00 H=10.00 NEUT % 76.3 % L=40.0 H=80.0 LYMPH % 9.6 % L=10.0 H=50.0 MONO % 68676-3 11.8 % L=2.0 H=12.0 EOS % 1.5 % L=0.0 H=8.0 BASO % 0.4 % L=0.0 H=3.0 IG % 2514-8 0.4 % L=0.0 H=1.1 NRBC % 55874-8 0.0 % L=0.0 H=0.0 NEUT abs count 751-8 7.3 th/cmm L=1.6 H=8. 4 LYMPH abs count 731-0 0.9 th/cmm L=1.5 H=4 .0 MONO abs count 742-7 1.1 th/cmm L=0.2 H=1. 0 EOS abs count 711-2 0.1 th/cmm L=0.0 H=0.5 BASO abs count 704-7 0.0 th/cmm L=0.0 H=0. 2 IG abs count 16538-1 0.0 th/cmm L=0.0 H=0.1 NRBC abs count 10409-5 0.0 mil/cmm L=0.0 H=0. 0 RBC 789-8 5.11 mil/cmm L=4.30 H=6.20 HEMOGLOBIN 718-7 17.1 gm/dL L=13.0 H=17.0 HEMATOCRIT 4544-3 50 % L=45 H=52 MCV 787-2 97 fL L=82 H=92 MCH 785-6 33.5 pg L=27.0 H=31.0 MCHC 786-4 34.5 % L=32.0 H=36.0 RDW-SD 788-0 44.6 fL L=39.0 H=49.0 PLATELET COUNT 777-3 154 th/cmm L=150 H=45 0 PLATELET COUNT - Collect Valente e/Time: 11/24/2021 21:00 Test Name Code Test Result Test Units Test Ref Rang e PLATELET COUNT 777-3 157 th/cmm L=150 H=45 0 D-DIMER - Collect Date/Time: 11/24/2021 14:34 Test Name Code Test Result Test Units Test Ref Rang e D-DIMER 28831-8 3.77 mg/L L=0.19 H=0.50 PT PROTHROMBIN TIME* - Colle ct Date/Time: 11/24/2021 14:34 Test Name Code Test Result Test Units Test Ref Rang e PROTIME 5902-2 10.4 seconds L=9.3 H=11.4 INR 79165-0 1.04 L=2.00 H=3.00 PT PROTHROMBIN TIME* - Colle ct Date/Time: 11/23/2021 20:10 Test Name Code Test Result Test Units Test Ref Rang e PROTIME 5902-2 11.2 seconds L=9.3 H=11.4 INR 62187-9 1.13 L=2.00 H=3.00 PTT PARTIAL THROMBOPLASTIN T KASIA* - Collect Date/Time: 11/25/2021 15:05 Test Name Code Test Result Test Units Test Ref Rang e PTT 14092-0 39 seconds L=24 H=32 PTT PARTIAL THROMBOPLASTIN T KASIA* - Collect Date/Time: 11/25/2021 06:58 Test Name Code Test Result Test Units Test Ref Rang e PTT 84120-1 112 seconds L=24 H=32 PTT PARTIAL THROMBOPLASTIN T KASIA* - Collect Date/Time: 11/25/2021 01:05 Test Name Code Test Result Test Units Test Ref Rang e PTT 09823-9 27 seconds L=24 H=32 PTT PARTIAL THROMBOPLASTIN T KASIA* - Collect Date/Time: 11/24/2021 21:00 Test Name Code Test Result Test Units Test Ref Rang e PTT 47958-9 77 seconds L=24 H=32 PTT PARTIAL THROMBOPLASTIN T KASIA* - Collect Date/Time: 11/24/2021 14:34 Test Name Code Test Result Test Units Test Ref Rang e PTT 45682-7 28 seconds L=24 H=32 PTT PARTIAL THROMBOPLASTIN T KASIA* - Collect Date/Time: 11/23/2021 20:10 Test Name Code Test Result Test Units Test Ref Rang e PTT 19206-7 32 seconds L=24 H=32 REECE COVID RHEONIX* - Kevin ect Date/Time: 11/23/2021 23:25 Test Name Code Test Result Test Units Test Ref Rang e [facility]- 94840-0 INPATIENT/ED N/A SARS COV2 RNA: 47080-7 NEGATIVE N/A REFERENCE RANGE: NEGAT Active Medications Medications Administered During Visit Medication Dose Units Frequency Route Date/Time of Last Dose CefTRIAXone IVPB: 1GM/50ML 1 GM X1 11/23/2021 22:24 AZITHROMYCIN IVPB: 500MG/250ML 500 MG X1 11/23/2021 22:52 SODIUM CHLORIDE 0.9% 1000ML 1000 ML X1 11/23/2021 22:24 SODIUM CHLORIDE 0.9% FLUSH 1 0ML SYRINGE 2 ML Q8H IVP 11/26/2021 05:5 8 SODIUM CHLORIDE 0.9% 1000ML 1000 ML CONT 11/24/2021 09:40 AmLODIPine TABLET: 5MG 5 MG X1 PO 11/24/2021 00:26 TAMSULOSIN CAP: 0.4MG 0.4 MG X1 PO 11/24/2021 00:25 TAMSULOSIN CAP: 0.4MG 0.4 MG BEDTIME PO 11/25/2021 21:08 AmLODIPine TABLET: 5MG 5 MG BEDTIME PO 11/25/2021 21:08 MethylPREDNISolone SUC INJ SDV:125MG/2ML 125 MG X1 IVP 11/24/2021 00: 25 PredniSONE TABLET: 20MG 20 MG DAILY WITH FOOD PO 11/24/2021 09:00 SODIUM CHLORIDE 0.9% 1000ML 1000 ML X1 11/24/2021 12:26 INSULIN PEN LISPRO: 300UNITS/3ML PRN SUBQ 11/24/2021 21:1 7 HEPARIN INJ SDV: 5,000 UNITS/ML 5400 UNITS X1 SUBQ 11/24/2021 15:02 HEPARIN PREMIX IV BA,000UNITS/250ML 1200 UNITS X1 11/24/2021 15:03 HEPARIN PREMIX IV BA,000UNITS/250ML 1000 UNITS CONT 11/25/2021 09:10 HEPARIN INJ SDV: 5,000 UNITS/ML 5400 UNITS PRN Q6H IVP 11/25/2021 01:42 RIVAROXABAN TAB: 10MG 15 MG X1 PO 11/25/2021 16:58 RIVAROXABAN TAB: 10MG 15 MG BID PO 11/26/2021 05:58 SODIUM CHLORIDE 0.9% 1000ML 1000 ML X1 11/25/2021 16:50 LISINOPRIL TABLET: 20MG 20 MG X1 PO 11/26/2021 13:37 Encounters Encounter Diagnosis Diagnosis Code Start Date Saddle embolus of pulmonary artery without acute cor pulmonale I2692 11/24/2021 Social History Smoking Status Code Start Date End Date Never smoker [id number] Patient Decision Aids Unknown or Not Available. Discharge Instructions You were admitted to [facility] on 11/24/2021 12:12 with a principal diagnosis of Saddle embolus of pulmonary artery without acute cor pulmonale You had the following tests done:GLUCOSE FINGER/HEEL CAPILLARYBASIC METABOLIC PANEL (BMP)CBC W/ DIFFERENTIAL*GLUCOSE FINGER/HEEL CAPILLARYGLUCOSE FINGER/HEEL CAPILLARYPTT PARTIAL THROMBOPLASTIN TIME*GLUCOSE FINGER/HEEL CAPILLARYGLUCOSE FINGER/HEEL CAPILLARYCBC W/ DIFFERENTIAL*PTT PARTIAL THROMBOPLASTIN TIME*PTT PARTIAL THROMBOPLASTIN TIME*PLATELET COUNTPTT PARTIAL THROMBOPLASTIN TIME*GLUCOSE FINGER/HEEL CAPILLARYGLUCOSE FINGER/HEEL CAPILLARYCBC W/ DIFFERENTIAL*D-DIMERHEMOGLOBIN A1C*PT PROTHROMBIN TIME*PTT PARTIAL THROMBOPLASTIN TIME*GLUCOSE FINGER/HEEL CAPILLARYGLUCOSE FINGER/HEEL CAPILLARYBASIC METABOLIC PANEL (BMP)CBC W/ DIFFERENTIAL*REECE COVID RHEONIX*CBC W/ DIFFERENTIAL*COMPREHENSIVE METABOLIC PANEL (CMP)PT PROTHROMBIN TIME*PTT PARTIAL THROMBOPLASTIN TIME*TROPONIN HIGH SENSITIVITY* You were discharged from [facility] on 11/26/2021 14:00 Should you have any questions prior to discharge, please contact a member of your healthcare team. If you have left the hospital and have any questions, please contact your primary care physician. Chief Complaint and Reason For Visit Chief Complaint Date of Onset PNA 11/23/2021 Function Status Unknown or Not Available. Plan of Care Unknown or Not Available. Referral/Transition of Care Unknown or Not Available.
== END 2023-04-27 08:29 | disposition home or self-care (01) ==
LOC: NCHCN 08:28
PROVIDERS: PCP Family Medicine; Visit Provider Family Medicine
DX: N39.0 Urinary tract infection, site not specified (principal)
CPT/HCPCS: 87086

== ENCOUNTER 2023-05-13 16:35 | Outpatient (REF) | payer MEDICARE, MEDICAID, SELFPAY ==
--- OUTSIDE RECORDS SUMMARY | 2023-05-13 16:44 | XMS_ITS | CCD ---
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 Allergies Allergy Code Allergy Type Reaction Status No Known Drug Allergies 0 No known drug allergies Active HONEY 0 Food allergy SOB Active Procedures Unknown or Not Available. History of Immunizations Unknown or Not Available. 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 Active Medications Medication Code Dose Units Frequency Route Modificatio n Start Date/Time Keflex 500MG Oral Capsule 825317 1 CAPSULE FOUR TIMES A DAY ORAL 10/18/2022 15:06 Prescription Detail TAKE 1 CAPSULE ORAL FOUR TIMES A DAY Benazepril HCl AvPak 20MG Oral Tablet 998909 1 TABLET DAILY ORAL 11/26/2021 13:16 Prescription Detail TAKE 1 TABLET ORAL DAILY amLODIPine Besylate 5MG Oral Tablet 195138 5 MILLIGRAMS BEDTIME ORAL 022 11:44 Prescription Detail TAKE 5 MILLIGRAMS ORAL BEDTIME Xarelto 20MG Oral Tablet 2631640 1 TABLET DAILY ORAL 11/27/19 22 10:44 Prescription Detail TAKE 1 TABLET ORAL DAILY STARTING 12/16(Af ter taking 15mg twice daily for 20 days) Medications Administered During Visit Unknown or Not Available. Encounters Encounter Diagnosis Diagnosis Code Start Date Solitary pulmonary nodule R911 2022 Social History Smoking Status Code Start Date End Date Never smoker [id number] Patient Decision Aids Unknown or Not Available. Discharge Instructions You were admitted to [facility] on 06/12/2022 14:57 with a principal diagnosis of Solitary pulmonary nodule You were discharged from [facility] on 06/12/2022 14:57 Should you have [...]
--- OUTSIDE RECORDS SUMMARY | 2023-05-13 16:44 | XMS_ITS | CCD ---
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 Allergies Allergy Code Allergy Type Reaction Status No Known Drug Allergies 0 No known drug allergies Active HONEY 0 Food allergy SOB Active Procedures Unknown or Not Available. History of Immunizations Unknown or Not Available. 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 455419732 Active Results CULT URINE CULTURE* - [facility] t Date/Time: 10/11/2022 12:00 Test Name Code Test Result Test Units Test Ref Rang e COLLECTION MODE: 19880-0 NOT STATED N/A Active Medications Medication Code Dose Units Frequency Route Modificatio n Start Date/Time Keflex 500MG Oral Capsule 819433 1 CAPSULE FOUR TIMES A DAY ORAL 10/18/2022 15:06 Prescription Detail TAKE 1 CAPSULE ORAL FOUR TIMES A DAY Benazepril HCl AvPak 20MG Oral Tablet 310114 1 TABLET DAILY ORAL 11/26/2021 13:16 Prescription Detail TAKE 1 TABLET ORAL DAILY amLODIPine Besylate 5MG Oral Tablet 763672 5 MILLIGRAMS BEDTIME ORAL 022 11:44 Prescription Detail TAKE 5 MILLIGRAMS ORAL BEDTIME Xarelto 20MG Oral Tablet 7124569 1 TABLET DAILY ORAL 11/27/19 22 10:44 Prescription Detail TAKE 1 TABLET ORAL DAILY STARTING 12/16(Af ter taking 15mg twice daily for 20 days) Medications Administered During Visit Unknown or Not Available. Encounters Encounter Diagnosis Diagnosis Code Start Date Nocturia 739114321 10/11/2022 Social History Smoking Status Code Start Date End Date Never smoker 461349328 Patient Decision Aids Unknown or Not Available. Discharge Instructions You were admitted to [facility] on 10/11/2022 13:01 with a principal diagnosis of Nocturia You had the following tests done:CULT URINE CULTURE* You were discharged from [facility] on 10/11/2022 13:01 Should you [...]
--- OUTSIDE RECORDS SUMMARY | 2023-05-13 16:44 | XMS_ITS | CCD ---
Author Name Unknown Address [address] [place] [address] [phone] Organization Unknown Address [address] [place] [place] [address] [id number] Care Team Providers Care Finishing Manager Name Role Phone AIDE CALZADA Attending Physician [phone] CHARLES BRISENO Er Physician 0 [phone] MELVI Reyez Registered Nurse [phone] Vital Signs Vital Sign Value Unit Date/Time Recent/Initial ? BMI (Body Mass Index) 21.52 kg/m^2 10/18/2022 14: 09 Initial VS Weight Measured 150 lbs 10/18/2022 14:09 Ini tial VS Height 70 in 10/18/2022 14:09 Initial VS BSA (Body Surface Area) 1.83 m^2 10/18/2022 1 4:09 Initial VS BP Systolic 126 mmHg 10/18/2022 14:09 Initial VS BP Diastolic 90 mmHg 10/18/2022 14:09 Initia l VS Respiratory Rate 18 bpm 10/18/2022 14:09 In itial VS Heart Rate 75 bpm 10/18/2022 14:09 Initial VS O2 % BldC Oximetry 98 % 10/18/2022 14:09 Initial VS Body Temperature 36.2 degrees 10/18/2022 14:09 In itial VS BP Systolic 129 mmHg 10/18/2022 15:30 Most Re cent VS BP Diastolic 85 mmHg 10/18/2022 15:30 Most R ecent VS Respiratory Rate 16 bpm 10/18/2022 15:[address] Recent VS Heart Rate 67 bpm 10/18/2022 15:30 Most Rec ent VS O2 % BldC Oximetry 97 % 10/18/2022 15:30 Most Recent VS Allergies Allergy Code Allergy Type Reaction Status No Known Drug Allergies 0 No known drug allergies Active HONEY 0 Food allergy SOB Active Procedures Unknown or Not Available. History of Immunizations Unknown or Not Available. 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 2 BILIRUBIN TOTAL 1975-2 0.9 mg/dL L=0.0 H=1 .3 ALK. PHOS. 6768-6 103 U/L L=46 H=116 SGOT (AST) 1920-8 27 U/L L=15 H=37 SGPT (ALT) 1742-6 34 U/L L=12 H=78 TOTAL PROTEIN 2885-2 7.5 gm/dL L=6.0 H=8.0 ALBUMIN 1751-7 3.5 gm/dL L=3.4 H=5.0 AGE 72 years eGFR (non-Afr.Amer.) 30273-5 38 mL/min eGFR (Afr-Guamanian) 72234-5 45 mL/min CBC W/ DIFFERENTIAL* - [facility] ct Date/Time: 10/18/2022 14:35 Test Name Code Test Result Test Units Test Ref Rang e WBC 6690-2 7.45 th/cmm L=5.00 H=10.00 NEUT % 76.4 % L=40.0 H=80.0 LYMPH % 11.4 % L=10.0 H=50.0 MONO % 03378-5 9.4 % L=2.0 H=12.0 EOS % 1.9 % L=0.0 H=8.0 BASO % 0.5 % L=0.0 H=3.0 IG % 2514-8 0.4 % L=0.0 H=1.1 NRBC % 63972-3 0.0 % L=0.0 H=0.0 NEUT abs count 751-8 5.7 th/cmm L=1.6 H=8. 4 LYMPH abs count 731-0 0.9 th/cmm L=1.5 H=4 .0 MONO abs count 742-7 0.7 th/cmm L=0.2 H=1. 0 EOS abs count 711-2 0.1 th/cmm L=0.0 H=0.5 BASO abs count 704-7 0.0 th/cmm L=0.0 H=0. 2 IG abs count 53529-9 0.0 th/cmm L=0.0 H=0.1 NRBC abs count 96100-2 0.0 mil/cmm L=0.0 H=0. 0 RBC 789-8 4.86 mil/cmm L=4.30 H=6.20 HEMOGLOBIN 718-7 16.2 gm/dL L=13.0 H=17.0 HEMATOCRIT 4544-3 49 % L=45 H=52 MCV 787-2 100 fL L=82 H=92 MCH 785-6 33.3 pg L=27.0 H=31.0 MCHC 786-4 33.3 % L=32.0 H=36.0 RDW-SD 788-0 45.7 fL L=39.0 H=49.0 PLATELET COUNT 777-3 141 th/cmm L=150 H=45 0 CULT URINE CULTURE* - [facility] t Date/Time: 10/18/2022 14:33 Test Name Code Test Result Test Units Test Ref Rang e COLLECTION MODE: 22542-4 CLEAN CATCH N/A URINALYSIS WITH REFLEX CULT IF POSITIVE* - Collect Date/Time: 10/18/2022 14:33 Test Name Code Test Result Test Units Test Ref Rang e COLLECTION MODE: 88439-8 CLEAN CATCH N/A Color 5778-6 YELLOW N/A yellow Appearance 5767-9 SL CLOUD N/A clear Glucose urine 30862-2 NEGATIVE N/A negative mg /dl Bilirubin 5770-3 NEGATIVE N/A negative Ketones 2514-8 NEGATIVE N/A negative mg/dl Spec gravity 5811-5 1.015 N/A 1.003 - 1.03 0 pH urine 2756-5 6.0 N/A 5.0 - 7.0 Protein 54419-7 TRACE N/A negative mg/dl Urobilinogen 73159-3 0.2 N/A <or= 1 EU/dl Nitrite. 5802-4 NEGATIVE N/A negative Blood 5794-3 LARGE N/A negative Leukocytes. SMALL N/A negative MICROSCOPIC INDICATED N/A WBCs. 44414-0 25-100 N/A 0-5 / hpf RBCs 23329-9 25-100 N/A 0-5 / hpf Epith cells 37010-1 none N/A 0-5 / hpf Crystals none N/A none Bacteria moderate N/A none Mucus 8247-9 present N/A none Casts 74521-3 none N/A none /lpf Active Medications Medications Administered During Visit Medication Dose Units Frequency Route Date/Time of Last Dose ER-CEPHALEXIN 4 PACK: 500MG 500 MG Q8H PO 10/18/2022 15:15 Encounters Encounter Diagnosis Diagnosis Code Start Date Tubulo-interstitial nephriti s, not specified as acute or chronic N12 10/18/2022 Social History Smoking Status Code Start Date End Date Never smoker 996854326 Patient Decision Aids Unknown or Not Available. Discharge Instructions You were admitted to [facility] on 10/18/2022 14:03 with a principal diagnosis of Tubulo-interstitial nephritis, not specified as acute or chronic You had the following tests done:CBC W/ DIFFERENTIAL*COMPREHENSIVE METABOLIC PANEL (CMP)CULT URINE CULTURE*URINALYSIS WITH REFLEX CULT IF POSITIVE* You were discharged from [facility] on 10/18/2022 15:29 Should you have any questions prior to discharge, please contact a member of your healthcare team. If you have left the hospital and have any questions, please contact your primary care physician. Chief Complaint and Reason For Visit Chief Complaint Date of Onset POSSIBLE KIDNEY INFECTION Function Status Unknown or Not Available. Plan of Care Unknown or Not Available. Referral/Transition of Care Unknown or Not Available.
--- OUTSIDE RECORDS SUMMARY | 2023-05-13 16:44 | XMS_ITS | CCD ---
Author Name Unknown Address [address] [place] [address] [phone] Organization Unknown Address [address] [place] [address] [phone] Care Team Providers Care Lumber Scaler Name Role Phone FRANCISCO LAZAR Attending Physician [phone] FRANCISCO LAZAR Er Physician 0 [phone] BHARTI Spears Registered Nurse [phone] Vital Signs Vital Sign Value Unit Date/Time [...] Code Start Date Resolved Date Status Pneumonia 748562442 Active Pleurisy 718937468 Active VICKI - acute kidney injury 73629526 Active Hypertension 89747692 Active CKD stage 3 893818610 Active Multiple subsegmental pulmon merlyn emboli without acute cor pulmonale 10839614 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 Active Medications Unknown or Not Available. Medications Administered During Visit Unknown or Not Available. Encounters Encounter Diagnosis Diagnosis Code Start Date Contusion of left foot, initial encounter [id number] A 11/01/2022 Social History Smoking Status Code Start Date End Date Never smoker 630831636 Patient Decision Aids Unknown or Not Available. Discharge Instructions You were admitted to [facility] on 11/01/2022 17:44 with a principal diagnosis of Contusion of left foot, initial encounter You were discharged from [facility] on 11/01/2022 19:00 Should you have [...]
--- OUTSIDE RECORDS SUMMARY | 2023-05-13 16:44 | XMS_ITS | CCD ---
Author Name Unknown Address [address] [place] [address] [phone] Organization Unknown Address [address] [place] [address] [phone] Care Team Providers Care Rn Coronary Care Unit Name Role Phone ERVIN MENDEZ Attending Physician [phone] Vital Signs Unknown or Not Available. Allergies Allergy Code Allergy Type Reaction Status No Known Drug Allergies 0 No known drug allergies Active HONEY 0 Food allergy SOB Active Procedures Unknown or Not Available. History of Immunizations Unknown or Not Available. 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 354227529 Active Results CULT URINE CULTURE* - Colle t Date/Time: 09/15/2022 10:00 Test Name Code Test Result Test Units Test Ref Rang e COLLECTION MODE: 50353-3 CATH N/A Active Medications Medication Code Dose Units Frequency Route Modificatio n Start Date/Time Keflex 500MG Oral Capsule 656892 1 CAPSULE FOUR TIMES A DAY ORAL 10/18/2022 15:06 Prescription Detail TAKE 1 CAPSULE ORAL FOUR TIMES A DAY Benazepril HCl AvPak 20MG Oral Tablet 666183 1 TABLET DAILY ORAL 11/26/2021 13:16 Prescription Detail TAKE 1 TABLET ORAL DAILY amLODIPine Besylate 5MG Oral Tablet 333433 5 MILLIGRAMS BEDTIME ORAL 022 11:44 Prescription Detail TAKE 5 MILLIGRAMS ORAL BEDTIME Xarelto 20MG Oral Tablet 2298838 1 TABLET DAILY ORAL 11/27/19 22 10:44 Prescription Detail TAKE 1 TABLET ORAL DAILY STARTING 12/16(Af ter taking 15mg twice daily for 20 days) Medications Administered During Visit Unknown or Not Available. Encounters Encounter Diagnosis Diagnosis Code Start Date Lower urinary tract symptoms due to benign prostatic hypertrophy [id number] 09/15/2022 Social History Smoking Status Code Start Date End Date Never smoker 705699644 Patient Decision Aids Unknown or Not Available. Discharge Instructions You were admitted to [facility] on 09/15/2022 12:49 with a principal diagnosis of Benign prostatic hyperplasia with lower urinary tract symptoms You had the following tests done:CULT URINE CULTURE* You were discharged from [facility] on 09/15/2022 12:49 Should you have any [...]
--- OUTSIDE RECORDS SUMMARY | 2023-05-13 16:44 | XMS_ITS | CCD ---
Author Name Unknown Address [address] [place] [address] [phone] Organization Unknown Address [address] [place] [address] [phone] Care Team Providers Care Envelope Sealer Name Role Phone FRANCISCO LAZAR Attending Physician [phone] FRANCISCO LAZAR Er Physician 2 [phone] BOO Lora Registered Nurse [phone] BHARTI Spears Registered Nurse [phone] Vital Signs Vital Sign Value Unit Date/Time [...] Code Start Date Resolved Date Status Pneumonia 152230783 Active Pleurisy 569604227 Active VICKI - acute kidney injury 94193257 Active Hypertension 32975411 Active CKD stage 3 653002910 Active Multiple subsegmental pulmon merlyn emboli without acute cor pulmonale 22079460 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 2 BILIRUBIN TOTAL 1975-2 0.5 mg/dL L=0.0 H=1 .3 ALK. PHOS. 6768-6 72 U/L L=46 H=116 SGOT (AST) 1920-8 25 U/L L=15 H=37 SGPT (ALT) 1742-6 28 U/L L=12 H=78 TOTAL PROTEIN 2885-2 6.9 gm/dL L=6.0 H=8.0 ALBUMIN 1751-7 2.6 gm/dL L=3.4 H=5.0 AGE 72 years eGFR (non-Afr.Amer.) 12272-5 36 mL/min eGFR (Afr-Kazakh) 41741-2 44 mL/min CBC W/ DIFFERENTIAL* - [facility] ct Date/Time: 10/29/2022 17:35 Test Name Code Test Result Test Units Test Ref Rang e WBC 6690-2 6.65 th/cmm L=5.00 H=10.00 NEUT % 70.9 % L=40.0 H=80.0 LYMPH % 15.5 % L=10.0 H=50.0 MONO % 71851-3 12.0 % L=2.0 H=12.0 EOS % 0.8 % L=0.0 H=8.0 BASO % 0.5 % L=0.0 H=3.0 IG % 2514-8 0.3 % L=0.0 H=1.1 NRBC % 05486-6 0.0 % L=0.0 H=0.0 NEUT abs count 751-8 4.7 th/cmm L=1.6 H=8. 4 LYMPH abs count 731-0 1.0 th/cmm L=1.5 H=4 .0 MONO abs count 742-7 0.8 th/cmm L=0.2 H=1. 0 EOS abs count 711-2 0.1 th/cmm L=0.0 H=0.5 BASO abs count 704-7 0.0 th/cmm L=0.0 H=0. 2 IG abs count 57994-7 0.0 th/cmm L=0.0 H=0.1 NRBC abs count 47894-4 0.0 mil/cmm L=0.0 H=0. 0 RBC 789-8 [...] Units Test Ref Rang e COLLECTION MODE: 09898-5 CLEAN CATCH N/A URINALYSIS WITH REFLEX CULT IF POSITIVE* - Collect Date/Time: 10/29/2022 16:20 Test Name Code Test Result Test Units Test Ref Rang e COLLECTION MODE: 47520-6 CLEAN CATCH N/A Color 5778-6 YELLOW N/A yellow Appearance 5767-9 CLEAR N/A clear Glucose urine 59475-1 NEGATIVE N/A negative mg /dl Bilirubin 5770-3 NEGATIVE N/A negative Ketones 2514-8 NEGATIVE N/A negative mg/dl Spec gravity 5811-5 1.015 N/A 1.003 - 1.03 0 pH urine 2756-5 6.0 N/A 5.0 - 7.0 Protein 16218-8 NEGATIVE N/A negative mg/dl Urobilinogen 08857-7 0.2 N/A <or= 1 EU/dl Nitrite. 5802-4 NEGATIVE N/A negative Blood 5794-3 SMALL N/A negative Leukocytes. SMALL N/A negative MICROSCOPIC INDICATED N/A WBCs. 97130-3 >100 N/A 0-5 / hpf RBCs 40291-9 0-5 N/A 0-5 / hpf Epith cells 02722-1 none N/A 0-5 / hpf Crystals none N/A none Bacteria minimal N/A none Mucus 8247-9 present N/A none Casts 04959-0 0-5 N/A none /lpf Cast types fine [...] Code Start Date End Date Never smoker 659893304 Patient Decision Aids Unknown or Not Available. Discharge Instructions You were admitted to [facility] on 10/29/2022 16:07 with a principal diagnosis of Urinary tract infection, site not specified You had the following tests done:CBC W/ DIFFERENTIAL*COMPREHENSIVE METABOLIC PANEL (CMP)CULT URINE CULTURE*URINALYSIS WITH REFLEX CULT IF POSITIVE* You were discharged from [facility] on 10/29/2022 20:23 Should you [...]
--- OUTSIDE RECORDS SUMMARY | 2023-05-13 16:44 | XMS_ITS | CCD ---
Author Name Unknown Address [address] [place] [address] [phone] Organization Unknown Address [address] [place] [address] [phone] Care Team Providers Care Instrumentation Fitter Name Role Phone PIERO NAJERA Attending Physician [phone] CHARLES BRISENO (Secondary) Physician [phone] Vital Signs Unknown or Not Available. Allergies Allergy Code Allergy Type Reaction Status No Known Drug Allergies 0 No known drug allergies Active HONEY 0 Food allergy SOB Active Procedures Unknown or Not Available. History of Immunizations Unknown or Not Available. 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 Active Medications Medication Code Dose Units Frequency Route Modificatio n Start Date/Time Keflex 500MG Oral Capsule 323892 1 CAPSULE FOUR TIMES A DAY ORAL 10/18/2022 15:06 Prescription Detail TAKE 1 CAPSULE ORAL FOUR TIMES A DAY Benazepril HCl AvPak 20MG Oral Tablet 964806 1 TABLET DAILY ORAL 11/26/2021 13:16 Prescription Detail TAKE 1 TABLET ORAL DAILY amLODIPine Besylate 5MG Oral Tablet 412560 5 MILLIGRAMS BEDTIME ORAL 022 11:44 Prescription Detail TAKE 5 MILLIGRAMS ORAL BEDTIME Xarelto 20MG Oral Tablet 6133941 1 TABLET DAILY ORAL 11/27/19 22 10:44 Prescription Detail TAKE 1 TABLET ORAL DAILY STARTING 12/16(Af ter taking 15mg twice daily for 20 days) Medications Administered During Visit Unknown or Not Available. Encounters Encounter Diagnosis Diagnosis Code Start Date Lobar pneumonia, unspecified organism J181 11/23/2021 Social History Smoking Status Code Start Date End Date Never smoker 857012109 Patient Decision Aids Unknown or Not Available. Discharge Instructions You were admitted to [facility] on 11/23/2021 22:28 with a principal diagnosis of Pneumococcal Pneumonia, Empyema, Lung Abscess You were discharged from [facility] on 11/24/2021 12:12 Should you have any questions prior to [...]
--- OUTSIDE RECORDS SUMMARY | 2023-05-13 16:45 | XMS_ITS | CCD ---
Author Name Unknown Address [address] [place] [address] [phone] Organization Unknown Address [address] [place] [address] [phone] Care Team Providers Care Product Development Actuary Name Role Phone PIERO NAJERA Attending Physician [phone] Vital Signs Unknown or Not Available. Allergies Allergy Code Allergy Type Reaction Status No Known Drug Allergies 0 No known drug allergies Active HONEY 0 Food allergy SOB Active Procedures Unknown or Not Available. History of Immunizations Unknown or Not Available. 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 Active Medications Medication Code Dose Units Frequency Route Modificatio n Start Date/Time Keflex 500MG Oral Capsule 858717 1 CAPSULE FOUR TIMES A DAY ORAL 10/18/2022 15:06 Prescription Detail TAKE 1 CAPSULE ORAL FOUR TIMES A DAY Benazepril HCl AvPak 20MG Oral Tablet 727286 1 TABLET DAILY ORAL 11/26/2021 13:16 Prescription Detail TAKE 1 TABLET ORAL DAILY amLODIPine Besylate 5MG Oral Tablet 488515 5 MILLIGRAMS BEDTIME ORAL 022 11:44 Prescription Detail TAKE 5 MILLIGRAMS ORAL BEDTIME Xarelto 20MG Oral Tablet 3929257 1 TABLET DAILY ORAL 11/27/19 22 10:44 Prescription Detail TAKE 1 TABLET ORAL DAILY STARTING 12/16(Af ter taking 15mg twice daily for 20 days) Medications Administered During Visit Unknown or Not Available. 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 Discharge Instructions You were admitted to [facility] on 11/24/2021 01:43 with a principal diagnosis of Saddle embolus of pulmonary artery without acute cor pulmonale You were discharged from [facility] on 11/26/2021 01:44 Should you have any [...]
--- OUTSIDE RECORDS SUMMARY | 2023-05-13 16:45 | XMS_ITS | CCD ---
Author Name Unknown Address [address] [place] [address] [id number] Organization Unknown Address [address] [place] [address] [phone] Care Team Providers Care Rivet Catcher Name Role Phone PIERO NAJERA Attending Physician [phone] PIERO NAJERA Er Physician [phone] CHARLES BRISENO (Secondary) Physician 8 [phone] KARINA Herr Registered Nurse [phone] Vital Signs Vital Sign Value Unit Date/Time [...] Code Start Date Resolved Date Status Pneumonia 833365322 Active Pleurisy 895033647 Active VICKI - acute kidney injury 34295414 Active Hypertension 73087967 Active CKD stage 3 236550609 Active Multiple subsegmental pulmon merlyn emboli without acute cor pulmonale 80850967 Acti ve Chronic DVT of right femoral vein 988082322 Active Results BASIC METABOLIC PANEL (BMP) - [...] 2028-9 26 mmol/L L=22 H=34 ANION GAP 87564-1 7.6 mmol/L CALCIUM SERUM 05653-7 8.8 mg/dL L=8.2 H=10. 2 AGE 71 years eGFR (non-Afr.Amer.) 99041-0 47 mL/min eGFR (Afr-Martiniquais) 46549-6 57 mL/min BASIC METABOLIC PANEL (BMP) - [...] 2028-9 24 mmol/L L=22 H=34 ANION GAP 88937-0 10.0 mmol/L CALCIUM SERUM 03224-3 8.4 mg/dL L=8.2 H=10. 2 AGE 71 years eGFR (non-Afr.Amer.) 63176-8 38 mL/min eGFR (Afr-Martiniquais) 93883-4 46 mL/min COMPREHENSIVE METABOLIC PANE L (CMP) [...] 2027-9 26 mmol/L L=22 H=34 ANION GAP 82674-5 8.7 mmol/L CALCIUM SERUM 31903-5 8.9 mg/dL L=8.2 H=10. 2 BILIRUBIN TOTAL 1975-2 1.2 mg/dL L=0.0 H=1 .3 ALK. PHOS. 6768-6 109 U/L L=46 H=116 SGOT (AST) 1920-8 18 U/L L=15 H=37 SGPT (ALT) 1742-6 19 U/L L=12 H=78 TOTAL PROTEIN 2885-2 7.8 gm/dL L=6.0 H=8.0 ALBUMIN 1751-7 3.5 gm/dL L=3.4 H=5.0 AGE 71 years eGFR (non-Afr.Amer.) 53158-3 35 mL/min eGFR (Afr-Martiniquais) 50834-0 42 mL/min GLUCOSE FINGER/HEEL CAPILLAR Y - [...] 5.8 % L=3.8 H=5.7 MEAN BLOOD GLUCOSE 27048-6 107 mg/dL TROPONIN HIGH SENSITIVITY* - Collect [...] % 20.0 % L=10.0 H=50.0 MONO % 26323-6 8.0 % L=2.0 H=12.0 EOS % 1.4 % L=0.0 H=8.0 BASO % 0.6 % L=0.0 H=3.0 IG % 2514-8 0.4 % L=0.0 H=1.1 NRBC % 50273-3 0.0 % L=0.0 H=0.0 NEUT abs count 751-8 3.6 th/cmm L=1.6 H=8. 4 LYMPH abs count 731-0 1.0 th/cmm L=1.5 H=4 .0 MONO abs count 742-7 0.4 th/cmm L=0.2 H=1. 0 EOS abs count 711-2 0.1 th/cmm L=0.0 H=0.5 BASO abs count 704-7 0.0 th/cmm L=0.0 H=0. 2 IG abs count 69408-8 0.0 th/cmm L=0.0 H=0.1 NRBC abs count 28597-8 0.0 mil/cmm L=0.0 H=0. 0 RBC 789-8 4.79 mil/cmm L=4.30 H=6.20 HEMOGLOBIN 718-7 15.9 gm/dL L=13.0 H=17.0 HEMATOCRIT 4544-3 47 % L=45 H=52 MCV 787-2 99 fL L=82 H=92 MCH 785-6 33.2 pg L=27.0 H=31.0 MCHC 786-4 33.6 % L=32.0 H=36.0 RDW-SD 788-0 45.1 fL L=39.0 H=49.0 PLATELET COUNT 777-3 160 th/cmm L=150 H=45 0 CBC W/ DIFFERENTIAL* - [facility] ct Date/Time: 11/25/2021 06:58 Test Name Code Test Result Test Units Test Ref Rang e WBC 6690-2 11.57 th/cmm L=5.00 H=10.00 NEUT % 84.7 % L=40.0 H=80.0 LYMPH % 7.2 % L=10.0 H=50.0 MONO % 11773-8 7.4 % L=2.0 H=12.0 EOS % 0.2 % L=0.0 H=8.0 BASO % 0.1 % L=0.0 H=3.0 IG % 2514-8 0.4 % L=0.0 H=1.1 NRBC % 61628-4 0.0 % L=0.0 H=0.0 NEUT abs count 751-8 9.8 th/cmm L=1.6 H=8. 4 LYMPH abs count 731-0 0.8 th/cmm L=1.5 H=4 .0 MONO abs count 742-7 0.9 th/cmm L=0.2 H=1. 0 EOS abs count 711-2 0.0 th/cmm L=0.0 H=0.5 BASO abs count 704-7 0.0 th/cmm L=0.0 H=0. 2 IG abs count 66724-2 0.1 th/cmm L=0.0 H=0.1 NRBC abs count 93185-4 0.0 mil/cmm L=0.0 H=0. 0 RBC 789-8 [...] % 3.5 % L=10.0 H=50.0 MONO % 21880-5 4.7 % L=2.0 H=12.0 EOS % 0.0 % L=0.0 H=8.0 BASO % 0.1 % L=0.0 H=3.0 IG % 2514-8 0.4 % L=0.0 H=1.1 NRBC % 99786-6 0.0 % L=0.0 H=0.0 NEUT abs count 751-8 8.9 th/cmm L=1.6 H=8. 4 LYMPH abs count 731-0 0.3 th/cmm L=1.5 H=4 .0 MONO abs count 742-7 0.5 th/cmm L=0.2 H=1. 0 EOS abs count 711-2 0.0 th/cmm L=0.0 H=0.5 BASO abs count 704-7 0.0 th/cmm L=0.0 H=0. 2 IG abs count 12101-1 0.0 th/cmm L=0.0 H=0.1 NRBC abs count 37404-0 0.0 mil/cmm L=0.0 H=0. 0 RBC 789-8 [...] % 3.4 % L=10.0 H=50.0 MONO % 06288-2 2.1 % L=2.0 H=12.0 EOS % 0.0 % L=0.0 H=8.0 BASO % 0.3 % L=0.0 H=3.0 IG % 2514-8 0.3 % L=0.0 H=1.1 NRBC % 82184-1 0.0 % L=0.0 H=0.0 NEUT abs count 751-8 6.4 th/cmm L=1.6 H=8. 4 LYMPH abs count 731-0 0.2 th/cmm L=1.5 H=4 .0 MONO abs count 742-7 0.1 th/cmm L=0.2 H=1. 0 EOS abs count 711-2 0.0 th/cmm L=0.0 H=0.5 BASO abs count 704-7 0.0 th/cmm L=0.0 H=0. 2 IG abs count 19940-7 0.0 th/cmm L=0.0 H=0.1 NRBC abs count 09083-6 0.0 mil/cmm L=0.0 H=0. 0 RBC 789-8 [...] % 9.6 % L=10.0 H=50.0 MONO % 95165-5 11.8 % L=2.0 H=12.0 EOS % 1.5 % L=0.0 H=8.0 BASO % 0.4 % L=0.0 H=3.0 IG % 2514-8 0.4 % L=0.0 H=1.1 NRBC % 03189-8 0.0 % L=0.0 H=0.0 NEUT abs count 751-8 7.3 th/cmm L=1.6 H=8. 4 LYMPH abs count 731-0 0.9 th/cmm L=1.5 H=4 .0 MONO abs count 742-7 1.1 th/cmm L=0.2 H=1. 0 EOS abs count 711-2 0.1 th/cmm L=0.0 H=0.5 BASO abs count 704-7 0.0 th/cmm L=0.0 H=0. 2 IG abs count 44329-1 0.0 th/cmm L=0.0 H=0.1 NRBC abs count 92297-2 0.0 mil/cmm L=0.0 H=0. 0 RBC 789-8 [...] Test Units Test Ref Rang e D-DIMER 07446-3 3.77 mg/L L=0.19 H=0.50 PT PROTHROMBIN TIME* - [facility] ct Date/Time: 11/24/2021 14:34 Test Name Code Test Result Test Units Test Ref Rang e PROTIME 5902-2 10.4 seconds L=9.3 H=11.4 INR 08140-5 1.04 L=2.00 H=3.00 PT PROTHROMBIN TIME* - [facility] ct Date/Time: 11/23/2021 20:10 Test Name Code Test Result Test Units Test Ref Rang e PROTIME 5902-2 11.2 seconds L=9.3 H=11.4 INR 03925-7 1.13 L=2.00 H=3.00 PTT PARTIAL THROMBOPLASTIN T KASIA* - Collect Date/Time: 11/25/2021 15:05 Test Name Code Test Result Test Units Test Ref Rang e PTT 42459-3 39 seconds L=24 H=32 PTT PARTIAL THROMBOPLASTIN T KASIA* - Collect Date/Time: 11/25/2021 06:58 Test Name Code Test Result Test Units Test Ref Rang e PTT 64208-1 112 seconds L=24 H=32 PTT PARTIAL THROMBOPLASTIN T KASIA* - Collect Date/Time: 11/25/2021 01:05 Test Name Code Test Result Test Units Test Ref Rang e PTT 17459-9 27 seconds L=24 H=32 PTT PARTIAL THROMBOPLASTIN T KASIA* - Collect Date/Time: 11/24/2021 21:00 Test Name Code Test Result Test Units Test Ref Rang e PTT 19718-6 77 seconds L=24 H=32 PTT PARTIAL THROMBOPLASTIN T KASIA* - Collect Date/Time: 11/24/2021 14:34 Test Name Code Test Result Test Units Test Ref Rang e PTT 32716-7 28 seconds L=24 H=32 PTT PARTIAL THROMBOPLASTIN T KASIA* - Collect Date/Time: 11/23/2021 20:10 Test Name Code Test Result Test Units Test Ref Rang e PTT 75455-9 32 seconds L=24 H=32 REECE COVID RHEONIX* - Kevin ect Date/Time: 11/23/2021 23:25 Test Name Code Test Result Test Units Test Ref Rang e [facility]- 98557-6 INPATIENT/ED N/A SARS COV2 RNA: 28769-4 NEGATIVE N/A REFERENCE RANGE: NEGAT Active Medications [...] Code Start Date End Date Never smoker 739027522 Patient Decision Aids Unknown or Not Available. Discharge Instructions You were admitted to [facility] on 11/24/2021 12:12 with a principal diagnosis [...] TIME*TROPONIN HIGH SENSITIVITY* You were discharged from [facility] on 11/26/2021 14:00 Should you have any [...]
--- OUTSIDE RECORDS SUMMARY | 2023-05-13 16:45 | XMS_ITS | Patient Health Record ---
Author Name Unknown Organization [facility] Address [address] [place] [address] Care Team Providers Care Orchestra Leader Name Role Phone Matilde Leone Primary Care Provider Christi Bucio Unavailable [phone] ALLERGIES Allergen (clinical drug ingredient) Drug/Non Drug [...] n pH 6.0 Occult Blood n Specific [place] 1.030 Ketones n Bilirubin n Color Appearance [...] (primary) hypertension (I10) Active confirmed Essential hypertension (77807959) Problem Nocturia (R35.1) Active confirmed Noctu rosenda (206227361) Problem Benign prostatic hyperplasia with lower urinary tract symptoms (N40.1) Active confirmed Lower urinary tract symptoms due to benign prostatic hypertrophy (45936061221971) VITAL SIGNS Blood pressure diastolic 60 mm [...] Location Date Provider Diagnosis [facility] [address] [address] 09/10/2022 [facility] Benign prostatic hyperplasia with lower urinary tract symptoms N40.1 and Nocturia R35.1 [facility] [address] [address] 09/15/2022 Christi Narvaez Benign prostatic hyperplasia with lower urinary tract symptoms N40.1 and Nocturia R35.1 [facility] [address] [address] 09/21/2022 [facility] [address] [address] 10/08/2022 [facility] [address] [address] 12/22/2022 Christi Narvaez Benign prostatic hyperplasia with [...] this. Pt had a hernia opperation at [facility] 3 years ago and a procedure 14 [...] Alonzo Teofilo dsouza, 12/21/2023 01:00:00 PM, [address] [place], [address], Insurance Providers Payer Name Payer Address Payer Phone Subscriber Number Group Number Insured Name Patient Relationship to Insured Coverage Start Date Coverage End Date [employer] of [place] - J14 [address] [place] [phone] [id number] VIELKA LUGO Self - patient is the insured [employer] of [place] [address] [place] [id number] VIELKA LUGO Self - patient is the insured MEDICAL (GENERAL) HISTORY Medical History History ICD Code Pulmonary Nodule L Hand Pain Unintentional Weight Loss Pulmonary Embolism DVT Chronic Kidney Disease Depression Former Smoker Bilateral Leg Pain Hernia Seborrheic Keratosis Surgical History Surgery Date(Month/Year) TURP in [place] [address]
--- OUTSIDE RECORDS SUMMARY | 2023-05-13 16:45 | XMS_ITS | CCD ---
Author Name Unknown Address [address] [place] [address] [phone] Organization Unknown Address [address] [place] [address] [phone] Care Team Providers Care Party Plan Salesperson Name Role Phone HAILEY CM MD Attending Physician [phone] CLARA MACEDO Er Physician [phone] Vital Signs Unknown or Not Available. Allergies Allergy Code Allergy Type Reaction Status HONEY 0 Food allergy SOB Active Procedures Unknown or Not Available. History of Immunizations Unknown or Not Available. Problems Problem Code Start Date Resolved Date Status Pneumonia 546648983 Active Pleurisy 967605732 Active VICKI - acute kidney injury 89168653 Active Hypertension 81470111 Active CKD stage 3 821672797 Active Multiple subsegmental pulmon merlyn emboli without acute cor pulmonale 38376565 Acti ve Chronic DVT of right femoral vein 009842447 Active BPH 660220339 11/23/2021 Resolved DVT of leg 482328590 11/23/2021 Resolved Results Unknown or Not Available. Active Medications Medication Code Dose Units Frequency Route Modificatio n Start Date/Time Keflex 500MG Oral Capsule 799157 1 CAPSULE FOUR TIMES A DAY ORAL 10/18/2022 15:06 Prescription Detail TAKE 1 CAPSULE ORAL FOUR TIMES A DAY Benazepril HCl AvPak 20MG Oral Tablet 045417 1 TABLET DAILY ORAL 11/26/2021 13:16 Prescription Detail TAKE 1 TABLET ORAL DAILY amLODIPine Besylate 5MG Oral Tablet 955858 5 MILLIGRAMS BEDTIME ORAL 022 11:44 Prescription Detail TAKE 5 MILLIGRAMS ORAL BEDTIME Xarelto 20MG Oral Tablet 4357948 1 TABLET DAILY ORAL 11/27/19 22 10:44 Prescription Detail TAKE 1 TABLET ORAL DAILY STARTING 12/16(Af ter taking 15mg twice daily for 20 days) Medications Administered During Visit Unknown or Not Available. Encounters Encounter Diagnosis Diagnosis Code Start Date Acute embolism and thrombosis of right popliteal vein V92900 10/10/2020 Social History Smoking Status Code Start Date End Date Never smoker 447377095 Patient Decision Aids Unknown or Not Available. Discharge Instructions You were admitted to [place] [address] on 10/10/2020 14:46 with a principal diagnosis of Acute embolism and thrombosis of right popliteal vein You were discharged from [facility] on 10/10/2020 18:52 Should you have [...]
== END 2023-05-13 16:36 | disposition home or self-care (01) ==
LOC: NCHCN 16:35
PROVIDERS: PCP Family Medicine; Visit Provider Family Medicine
DX: R30.0 Dysuria (principal)
CPT/HCPCS: 87077; 87086; 87186

== ENCOUNTER 2023-07-21 18:27 | Outpatient (REF) | payer MEDICARE, MEDICAID, SELFPAY | END 2023-07-21 18:28 | disposition home or self-care (01) | LOC: NCHCN 18:27 | PROVIDERS: PCP Family Medicine; Visit Provider Physician Assistant | DX: R30.0 Dysuria (principal) | CPT/HCPCS: 87077; 87086; 87186 ==

== ENCOUNTER 2023-09-15 18:55 | Outpatient (REF) | payer MEDICARE, MEDICAID, SELFPAY ==
[2023-09-15 20:53] LABS: HCT 45.5 % (40.0-50.0); HGB 15.1 g/dL (13.5-17.5); MCH 33.6 pg (27.0-33.0); MCHC 33.2 % (32.0-36.0); MCV 101 fL (80-95); Platelet Count 172 10^3/uL (130-400); RBC 4.49 10^6/uL (4.36-5.78); RDW 12.6 % (11.8-14.1); RDW-SD 47.6 fL; WBC 4.49 10^3/uL (4.4-10.8)
[2023-09-15 21:02] LABS: Anion Gap 7.9 mmol/L (3-11); BUN 31 mg/dL (7-18); CO2 25.1 mmol/L (21.0-32.0); CREATININE 1.9 mg/dL (0.70-1.30); Calcium 9.1 mg/dL (8.5-10.1); Calculated LDL 89 mg/dL (<100); Chloride 109 mmol/L (98-107); Cholesterol 177 mg/dL (<200); Estimated GFR 36.79 (mL/min/1.73m2); Glucose 102 mg/dL (74-106); HDL Cholesterol 72 mg/dL (40-60); Potassium 5.1 mmol/L (3.5-5.1); Sodium 142 mmol/L (136-145); Triglyceride 83 mg/dL (<150)
[2023-09-16 18:25] LABS: PSA, Screening 1.2 ng/mL (<=6.5)
== END 2023-09-15 18:56 | disposition home or self-care (01) ==
LOC: NCHCN 18:55
PROVIDERS: PCP Family Medicine; Visit Provider Family Medicine
DX: N18.9 Chronic kidney disease, unspecified (principal); Z12.5 Encounter for screening for malignant neoplasm of prostate
CPT/HCPCS: 80048; 80061; 84153; 85027

== ENCOUNTER 2024-04-27 13:24 | Outpatient (REF) | payer MEDICARE, SELFPAY ==
--- OUTSIDE RECORDS SUMMARY | 2024-04-27 13:28 | XMS_ITS ---
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 Hand Name Role Phone KARINA ESTRADA Registered Nurse Unavailable Unavailable Xwatchlist Unavailable DANIA Ochoa Attending Unavailable PCP NOT SELECTED Primary Unavailable SUZANNA Irby Secondary Unavailable AYDIN Irby Xhandoff Unavailable UNLISTED PROVIDER - REQUESTED Xhandoff Un available Results GLUCOSE FINGER/HEEL CAPILLAR Y - Collect Date/Time: 11/26/2021 07:47 [facility] ID: [id number] [address] [place] [address], [phone] LOINC: 93118-8 Test Value Unit Reference Range Code Code System Flag GLUCOSE CAP 102 mg/dL L=70 H=116 BASIC METABOLIC PANEL (BMP) - Collect Date/Time: 11/26/2021 06:15 [facility] ID: [id number] - [id number] [address] [place] [address], [address] LOINC: 84080-0 Test Value Unit Reference Range Code Code System Flag GLUCOSE 99 mg/dL L=70 H=116 2345-7 LOINC BUN 31 mg/dL L=6 H=25 3094-0 LOINC H CREATININE 1.47 mg/dL L=0.67 H=1.17 2160-0 LOINC H SODIUM SERUM 139 mmol/L L=136 H=145 2951-2 LOINC POTASSIUM SERUM 4.6 mmol/L L=3.4 H=5.2 2823-3 LOINC CHLORIDE SERUM 105 mmol/L L=96 H=110 2075-0 LOINC CARBON DIOXIDE (CO2) 26 mmol/L L=22 H=34 2028-9 LOINC ANION GAP 7.6 mmol/L 45667-1 LOINC CALCIUM SERUM 8.8 mg/dL L=8.2 H=10.2 01949-8 LOINC AGE 71 years eGFR (non-Afr.Amer.) 47 mL/min 22528-0 LOINC eGFR (Afr-Samoan) 57 mL/min 70558-3 LOINC CBC W/ DIFFERENTIAL* - Colle ct Date/Time: 11/26/2021 06:15 [facility] ID: [id number] [address] [place], [place], [address] LOINC: 26774-2 Test Value Unit Reference Range Code Code System Flag WBC 5.10 th/cmm L=5.00 H=10.00 6690-2 LOINC NEUT % 69.6 % L=40.0 H=80.0 LYMPH % 20.0 % L=10.0 H=50.0 MONO % 8.0 % L=2.0 H=12.0 56318-2 LOINC EOS % 1.4 % L=0.0 H=8.0 BASO % 0.6 % L=0.0 H=3.0 IG % 0.4 % L=0.0 H=1.1 2514-8 LOINC NRBC % 0.0 % L=0.0 H=0.0 68105-8 LOINC NEUT abs count 3.6 th/cmm L=1.6 H=8.4 751-8 LOINC LYMPH abs count 1.0 th/cmm L=1.5 H=4.0 731-0 LOINC L MONO abs count 0.4 th/cmm L=0.2 H=1.0 742-7 LOINC EOS abs count 0.1 th/cmm L=0.0 H=0.5 711-2 LOINC BASO abs count 0.0 th/cmm L=0.0 H=0.2 704-7 LOINC IG abs count 0.0 th/cmm L=0.0 H=0.1 31010-4 LOINC NRBC abs count 0.0 mil/cmm L=0.0 H=0.0 91276-4 LOINC RBC 4.79 mil/cmm L=4.30 H=6.20 789-8 LOINC HEMOGLOBIN 15.9 gm/dL L=13.0 H=17.0 718-7 LOINC HEMATOCRIT 47 % L=45 H=52 4544-3 LOINC MCV 99 fL L=82 H=92 787-2 LOINC H MCH 33.2 pg L=27.0 H=31.0 785-6 LOINC H MCHC 33.6 % L=32.0 H=36.0 786-4 LOINC RDW-SD 45.1 fL L=39.0 H=49.0 788-0 LOINC PLATELET COUNT 160 th/cmm L=150 H=450 777-3 LOINC GLUCOSE FINGER/HEEL CAPILLAR Y - Collect Date/Time: 11/25/2021 20:56 [facility] ID: [id number] [address] [place] [address], [id number] LOINC: 07958-6 Test Value Unit Reference Range Code Code System Flag GLUCOSE CAP 115 mg/dL L=70 H=116 GLUCOSE FINGER/HEEL CAPILLAR Y - Collect Date/Time: 11/25/2021 16:32 [facility] ID: [id number] [address] [place] [address], [id number] LOINC: 55098-3 Test Value Unit Reference Range Code Code System Flag GLUCOSE CAP 165 mg/dL L=70 H=116 H PTT PARTIAL THROMBOPLASTIN T KASIA* - Collect Date/Time: 11/25/2021 15:05 [facility] ID: [id number] - [id number] [address] [place] [address], [phone] LOINC: 00152-2 Test Value Unit Reference Range Code Code System Flag PTT 39 seconds L=24 H=32 47219-6 LOINC H GLUCOSE FINGER/HEEL CAPILLAR Y - Collect Date/Time: 11/25/2021 12:09 [facility] ID: [id number] - [id number] [address] [place] [address], [id number] LOINC: 49320-1 Test Value Unit Reference Range Code Code System Flag GLUCOSE CAP 109 mg/dL L=70 H=116 GLUCOSE FINGER/HEEL CAPILLAR Y - Collect Date/Time: 11/25/2021 07:28 [facility] ID: [id number] - [id number] [address] [place] [address], [id number] LOINC: 36487-3 Test Value Unit Reference Range Code Code System Flag GLUCOSE CAP 115 mg/dL L=70 H=116 PTT PARTIAL THROMBOPLASTIN T KASIA* - Collect Date/Time: 11/25/2021 06:58 [facility] ID: [id number] [address] [place] [address], [id number] LOINC: 77107-9 Test Value Unit Reference Range Code Code System Flag PTT 112 seconds L=24 H=32 35805-4 LOINC HH CBC W/ DIFFERENTIAL* - Colle ct Date/Time: 11/25/2021 06:58 [facility] ID: [id number] [address] [place] [address], [address] LOINC: 13224-1 Test Value Unit Reference Range Code Code System Flag WBC 11.57 th/cmm L=5.00 H=10.00 6690-2 LOINC H NEUT % 84.7 % L=40.0 H=80.0 H LYMPH % 7.2 % L=10.0 H=50.0 L MONO % 7.4 % L=2.0 H=12.0 00449-1 LOINC EOS % 0.2 % L=0.0 H=8.0 BASO % 0.1 % L=0.0 H=3.0 IG % 0.4 % L=0.0 H=1.1 2514-8 LOINC NRBC % 0.0 % L=0.0 H=0.0 49809-4 LOINC NEUT abs count 9.8 th/cmm L=1.6 H=8.4 751-8 LOINC H LYMPH abs count 0.8 th/cmm L=1.5 H=4.0 731-0 LOINC L MONO abs count 0.9 th/cmm L=0.2 H=1.0 742-7 LOINC EOS abs count 0.0 th/cmm L=0.0 H=0.5 711-2 LOINC BASO abs count 0.0 th/cmm L=0.0 H=0.2 704-7 LOINC IG abs count 0.1 th/cmm L=0.0 H=0.1 68123-2 LOINC NRBC abs count 0.0 mil/cmm L=0.0 H=0.0 53000-2 LOINC RBC 4.31 mil/cmm L=4.30 H=6.20 789-8 LOINC HEMOGLOBIN 14.2 gm/dL L=13.0 H=17.0 718-7 LOINC HEMATOCRIT 42 % L=45 H=52 4544-3 LOINC L MCV 97 fL L=82 H=92 787-2 LOINC H MCH 32.9 pg L=27.0 H=31.0 785-6 LOINC H MCHC 34.1 % L=32.0 H=36.0 786-4 LOINC RDW-SD 43.8 fL L=39.0 H=49.0 788-0 LOINC PLATELET COUNT 145 th/cmm L=150 H=450 777-3 LOINC L PTT PARTIAL THROMBOPLASTIN T KASIA* - Collect Date/Time: 11/25/2021 01:05 [facility] ID: [id number] - [id number] [address] [place] [address], [id number] LOINC: 93761-1 Test Value Unit Reference Range Code Code System Flag PTT 27 seconds L=24 H=32 11466-6 LOINC PTT PARTIAL THROMBOPLASTIN T KASIA* - Collect Date/Time: 11/24/2021 21:00 [facility] ID: [id number] - [id number] [address] [place] [address], [id number] LOINC: 57420-1 Test Value Unit Reference Range Code Code System Flag PTT 77 seconds L=24 H=32 99238-8 LOINC H PLATELET COUNT - Collect Valente e/Time: 11/24/2021 21:00 [facility] ID: [id number] - [id number] [address] [place] [address], [address] LOINC: 777-3 Test Value Unit Reference Range Code Code System Flag PLATELET COUNT 157 th/cmm L=150 H=450 777-3 LOINC GLUCOSE FINGER/HEEL CAPILLAR Y - Collect Date/Time: 11/24/2021 20:58 [facility] ID: [id number] [address] [place] [address], [id number] LOINC: 15274-7 Test Value Unit Reference Range Code Code System Flag GLUCOSE CAP 191 mg/dL L=70 H=116 H GLUCOSE FINGER/HEEL CAPILLAR Y - Collect Date/Time: 11/24/2021 17:09 [facility] ID: [id number] [address] [place] [address], [id number] LOINC: 22536-5 Test Value Unit Reference Range Code Code System Flag GLUCOSE CAP 235 mg/dL L=70 H=116 H CBC W/ DIFFERENTIAL* - Colle ct Date/Time: 11/24/2021 14:34 [facility] ID: [id number] [address] [place] [address], [address] LOINC: 05108-6 Test Value Unit Reference Range Code Code System Flag WBC 9.77 th/cmm L=5.00 H=10.00 6690-2 LOINC NEUT % 91.3 % L=40.0 H=80.0 H LYMPH % 3.5 % L=10.0 H=50.0 L MONO % 4.7 % L=2.0 H=12.0 12428-5 LOINC EOS % 0.0 % L=0.0 H=8.0 BASO % 0.1 % L=0.0 H=3.0 IG % 0.4 % L=0.0 H=1.1 2514-8 LOINC NRBC % 0.0 % L=0.0 H=0.0 04948-8 LOINC NEUT abs count 8.9 th/cmm L=1.6 H=8.4 751-8 LOINC H LYMPH abs count 0.3 th/cmm L=1.5 H=4.0 731-0 LOINC L MONO abs count 0.5 th/cmm L=0.2 H=1.0 742-7 LOINC EOS abs count 0.0 th/cmm L=0.0 H=0.5 711-2 LOINC BASO abs count 0.0 th/cmm L=0.0 H=0.2 704-7 LOINC IG abs count 0.0 th/cmm L=0.0 H=0.1 55945-7 LOINC NRBC abs count 0.0 mil/cmm L=0.0 H=0.0 72358-1 LOINC RBC 4.52 mil/cmm L=4.30 H=6.20 789-8 LOINC HEMOGLOBIN 14.9 gm/dL L=13.0 H=17.0 718-7 LOINC HEMATOCRIT 44 % L=45 H=52 4544-3 LOINC L MCV 97 fL L=82 H=92 787-2 LOINC H MCH 33.0 pg L=27.0 H=31.0 785-6 LOINC H MCHC 33.9 % L=32.0 H=36.0 786-4 LOINC RDW-SD 43.2 fL L=39.0 H=49.0 788-0 LOINC PLATELET COUNT 152 th/cmm L=150 H=450 777-3 LOINC PT PROTHROMBIN TIME* - Colle ct Date/Time: 11/24/2021 14:34 [facility] ID: [id number] - [id number] [address] [place], [place], [address] LOINC: 5902-2 Test Value Unit Reference Range Code Code System Flag PROTIME 10.4 seconds L=9.3 H=11.4 5902-2 LOINC INR 1.04 L=2.00 H=3.00 88337-3 LOINC L PTT PARTIAL THROMBOPLASTIN T KASIA* - Collect Date/Time: 11/24/2021 14:34 [facility] ID: [id number] - [id number] [address] [place] [address], [id number] LOINC: 53886-2 Test Value Unit Reference Range Code Code System Flag PTT 28 seconds L=24 H=32 21447-2 LOINC HEMOGLOBIN A1C* - Collect Da te/Time: 11/24/2021 14:34 [facility] ID: [id number] - [id number] [address] [place] [address], [address] LOINC: 4548-4 Test Value Unit Reference Range Code Code System Flag Hgb A1c 5.8 % L=3.8 H=5.7 4548-4 LOINC H MEAN BLOOD GLUCOSE 107 mg/dL 56397-1 LOINC D-DIMER - Collect Date/Time: 11/24/2021 14:34 [facility] ID: [id number] - [id number] [address] [place] [address], [address] LOINC: 13070-6 Test Value Unit Reference Range Code Code System Flag D-DIMER 3.77 mg/L L=0.19 H=0.50 49524-4 LOINC H GLUCOSE FINGER/HEEL CAPILLAR Y - Collect Date/Time: 11/24/2021 14:07 [facility] ID: [id number] - [id number] [address] [place] [address], [phone] LOINC: 73880-6 Test Value Unit Reference Range Code Code System Flag GLUCOSE CAP 255 mg/dL L=70 H=116 H GLUCOSE FINGER/HEEL CAPILLAR Y - Collect Date/Time: 11/24/2021 12:00 [facility] ID: [id number] - [id number] [address] [place] [address], [id number] LOINC: 72884-3 Test Value Unit Reference Range Code Code System Flag GLUCOSE CAP 255 mg/dL L=70 H=116 H BASIC METABOLIC PANEL (BMP) - Collect Date/Time: 11/24/2021 06:20 [facility] ID: [id number] [address] [place] [address], [address] LOINC: 62163-6 Test Value Unit Reference Range Code Code System Flag GLUCOSE 293 mg/dL L=70 H=116 2345-7 LOINC H BUN 27 mg/dL L=6 H=25 3094-0 LOINC H CREATININE 1.78 mg/dL L=0.67 H=1.17 2160-0 LOINC H SODIUM SERUM 138 mmol/L L=136 H=145 2951-2 LOINC POTASSIUM SERUM 4.4 mmol/L L=3.4 H=5.2 2823-3 LOINC CHLORIDE SERUM 104 mmol/L L=96 H=110 2075-0 LOINC CARBON DIOXIDE (CO2) 24 mmol/L L=22 H=34 2028-9 LOINC ANION GAP 10.0 mmol/L 47127-8 LOINC CALCIUM SERUM 8.4 mg/dL L=8.2 H=10.2 31491-9 LOINC AGE 71 years eGFR (non-Afr.Amer.) 38 mL/min 24001-0 LOINC eGFR (Afr-Samoan) 46 mL/min 92750-2 LOINC CBC W/ DIFFERENTIAL* - Colle ct Date/Time: 11/24/2021 06:20 [facility] ID: [id number] [address] [place] [address], [address] LOINC: 89347-6 Test Value Unit Reference Range Code Code System Flag WBC 6.76 th/cmm L=5.00 H=10.00 6690-2 LOINC NEUT % 93.9 % L=40.0 H=80.0 H LYMPH % 3.4 % L=10.0 H=50.0 L MONO % 2.1 % L=2.0 H=12.0 27604-9 LOINC EOS % 0.0 % L=0.0 H=8.0 BASO % 0.3 % L=0.0 H=3.0 IG % 0.3 % L=0.0 H=1.1 2514-8 LOINC NRBC % 0.0 % L=0.0 H=0.0 47726-9 LOINC NEUT abs count 6.4 th/cmm L=1.6 H=8.4 751-8 LOINC LYMPH abs count 0.2 th/cmm L=1.5 H=4.0 731-0 LOINC L MONO abs count 0.1 th/cmm L=0.2 H=1.0 742-7 LOINC L EOS abs count 0.0 th/cmm L=0.0 H=0.5 711-2 LOINC BASO abs count 0.0 th/cmm L=0.0 H=0.2 704-7 LOINC IG abs count 0.0 th/cmm L=0.0 H=0.1 52720-7 LOINC NRBC abs count 0.0 mil/cmm L=0.0 H=0.0 67775-7 LOINC RBC 4.73 mil/cmm L=4.30 H=6.20 789-8 LOINC HEMOGLOBIN 15.8 gm/dL L=13.0 H=17.0 718-7 LOINC HEMATOCRIT 46 % L=45 H=52 4544-3 LOINC MCV 98 fL L=82 H=92 787-2 LOINC H MCH 33.4 pg L=27.0 H=31.0 785-6 LOINC H MCHC 34.3 % L=32.0 H=36.0 786-4 LOINC RDW-SD 43.2 fL L=39.0 H=49.0 788-0 LOINC PLATELET COUNT 127 th/cmm L=150 H=450 777-3 [facility] - Kevin ect Date/Time: 11/23/2021 23:25 [facility] ID: [id number] [address] [place], [place], [id number] LOINC: 29652-4 Test Value Unit Reference Range Code Code System Flag Tier- INPATIENT/ED 28848-5 LOINC SARS COV2 RNA: NEGATIVE REFERENCE RAN GE: NEGAT 53934-5 LOINC TROPONIN HIGH SENSITIVITY* - Collect Date/Time: 11/23/2021 20:10 [facility] ID: [id number] - [id number] [address] [place] [address], [address] LOINC: 22625-4 Test Value Unit Reference Range Code Code System Flag TROPONIN HS 8.8 pg/mL L=0.0 H=60.4 Specimen seq. Random CBC W/ DIFFERENTIAL* - Colle ct Date/Time: 11/23/2021 20:10 [facility] ID: [id number] [address] [place] [address], [address] LOINC: 55539-9 Test Value Unit Reference Range Code Code System Flag WBC 9.55 th/cmm L=5.00 H=10.00 6690-2 LOINC NEUT % 76.3 % L=40.0 H=80.0 LYMPH % 9.6 % L=10.0 H=50.0 L MONO % 11.8 % L=2.0 H=12.0 76962-2 LOINC EOS % 1.5 % L=0.0 H=8.0 BASO % 0.4 % L=0.0 H=3.0 IG % 0.4 % L=0.0 H=1.1 2514-8 LOINC NRBC % 0.0 % L=0.0 H=0.0 06683-0 LOINC NEUT abs count 7.3 th/cmm L=1.6 H=8.4 751-8 LOINC LYMPH abs count 0.9 th/cmm L=1.5 H=4.0 731-0 LOINC L MONO abs count 1.1 th/cmm L=0.2 H=1.0 742-7 LOINC H EOS abs count 0.1 th/cmm L=0.0 H=0.5 711-2 LOINC BASO abs count 0.0 th/cmm L=0.0 H=0.2 704-7 LOINC IG abs count 0.0 th/cmm L=0.0 H=0.1 48889-7 LOINC NRBC abs count 0.0 mil/cmm L=0.0 H=0.0 40092-6 LOINC RBC 5.11 mil/cmm L=4.30 H=6.20 789-8 LOINC HEMOGLOBIN 17.1 gm/dL L=13.0 H=17.0 718-7 LOINC H HEMATOCRIT 50 % L=45 H=52 4544-3 LOINC MCV 97 fL L=82 H=92 787-2 LOINC H MCH 33.5 pg L=27.0 H=31.0 785-6 LOINC H MCHC 34.5 % L=32.0 H=36.0 786-4 LOINC RDW-SD 44.6 fL L=39.0 H=49.0 788-0 LOINC PLATELET COUNT 154 th/cmm L=150 H=450 777-3 LOINC COMPREHENSIVE METABOLIC PANE L (CMP) - Collect Date/Time: 11/23/2021 20:10 [facility] ID: [id number] - [id number] [address] [place], [place], [address] LOINC: 45578-1 Test Value Unit Reference Range Code Code System Flag GLUCOSE 120 mg/dL L=70 H=116 2345-7 LOINC H BUN 33 mg/dL L=6 H=25 3094-0 LOINC H CREATININE 1.90 mg/dL L=0.67 H=1.17 2160-0 LOINC H SODIUM SERUM 137 mmol/L L=136 H=145 2951-2 LOINC POTASSIUM SERUM 4.4 mmol/L L=3.4 H=5.2 2823-3 LOINC CHLORIDE SERUM 102 mmol/L L=96 H=110 2075-0 LOINC CARBON DIOXIDE (CO2) 26 mmol/L L=22 H=34 2028-9 LOINC ANION GAP 8.7 mmol/L 58866-0 LOINC CALCIUM SERUM 8.9 mg/dL L=8.2 H=10.2 80545-2 LOINC BILIRUBIN TOTAL 1.2 mg/dL L=0.0 H=1.3 1975-2 LOINC ALK. PHOS. 109 U/L L=46 H=116 6768-6 LOINC SGOT (AST) 18 U/L L=15 H=37 1920-8 LOINC SGPT (ALT) 19 U/L L=12 H=78 1742-6 LOINC TOTAL PROTEIN 7.8 gm/dL L=6.0 H=8.0 2885-2 LOINC ALBUMIN 3.5 gm/dL L=3.4 H=5.0 1751-7 LOINC AGE 71 years eGFR (non-Afr.Amer.) 35 mL/min 09741-3 LOINC eGFR (Afr-Samoan) 42 mL/min 93924-4 LOINC PTT PARTIAL THROMBOPLASTIN T KASIA* - Collect Date/Time: 11/23/2021 20:10 [facility] ID: [id number] - [id number] [address] [place] [address], [id number] LOINC: 05618-9 Test Value Unit Reference Range Code Code System Flag PTT 32 seconds L=24 H=32 38008-1 LOINC PT PROTHROMBIN TIME* - Colle ct Date/Time: 11/23/2021 20:10 [facility] ID: [id number] - [id number] [address] [place] [address], [address] LOINC: 5902-2 Test Value Unit Reference Range Code Code System Flag PROTIME 11.2 seconds L=9.3 H=11.4 5902-2 LOINC INR 1.13 L=2.00 H=3.00 10040-[address] ANGIOGRAPHY CHEST - Compl eted: 11/24/2021 11:55 LOINC: Radiation optimization: All CT scans at this facility use at least one of these dose optimization techniques: automated exposure control; mA and/or kV adjustment per patient size (includes targeted exams where dose is matched to clinical indication); or iterative reconstruction. CHEST CT FOR PULMONARY EMBOLISM Comparison 26 Aug 2020. Contrast injection was performed via the right arm. There is a question of a thrombus in the lower superior vena cava. There are emboli seen in the main pulmonary artery as well as main right and left pulmonary arteries, with extension into left lower lobe, right lower lobe and right upper lobe branches. There is no evidence of right heart strain. The aorta is tortuous but normal in diameter. There is no evidence of aortic dissection. The heart size is normal. There are mild coronary artery calcifications. There is no pericardial effusion. There is a small left pleural effusion and adjacent atelectasis. There is atelectasis seen lateral to the descending aorta. The previously noted medial area of nodularity in the left lower lobe is not definitely present however there is increased atelectasis compared with the previous exam. There is no evidence of adenopathy. There are mild emphysematous and fibrotic changes. No suspicious bony lesions are seen. Cysts are noted at the upper poles of both kidneys. IMPRESSION: Findings consistent with extensive bilateral pulmonary emboli, including saddle emboli. Thrombus is also present within the lower SVC. There is a small left pleural effusion and atelectasis at the left lung base. The previously noted area of nodularity at the medial posterior left lung base could be obscured by the effusion and atelectasis. Dictated by: CEO GURWINDER BRAGG MD Transcribed by: [facility] [place] 11/27/2115:47 D Wednesday, November 24, 2021 12:07:06 PM [id number] Electronically Reviewed and Signed By: GURWINDER BRAGG MD 12/15/21 13:26 Copy for: 185 HEALTH INFORMATION MGMT DISCHARGED US DVT BILATERAL - Completed : 11/25/2021 12:10 LOINC: BILATERAL DUPLEX VENOUS ULTR ASOUND LOWER EXTREMITIES Duplex evaluation of the deep venous system of both lower extremities was performed according to the usual protocol with 2D and Doppler evaluation. There is no evidence of DVT in the left lower extremity. On the right there is physical thrombus and non-compressibility in the femoral and popliteal veins which appears to be non-occlusive. Calf veins appear patent as visualized. CONCLUSION: Examination is positive for DVT in the right lower extremity. Negative evaluation of the left lower extremity. Dictated by: JENELLE ZHOU MD Transcribed by: [facility] [place] 11/28/21/09:21 D Thursday, November 25, 2021 1:19:45 PM [id number] Electronically Reviewed and Signed By: CHARMAINE ZHOU MD 11/28/21 14:54 Copy for: 185 HEALTH INFORMATION MGMT DISCHARGED XR CHEST 2V PA AND LATERAL - Completed: 11/23/2021 20:49 LOINC: PA AND LATERAL CHEST Comparison is made with chest CT dated 26 Aug 2020. The heart size is normal. The aorta is tortuous. There is blunting at the left costophrenic angle which could represent a tiny effusion versus pleural scarring or thickening. There are mild increased densities at the left lung base. The previous CT showed a medial left basilar infiltrate versus mass. Clinical correlation is recommended. The remainder of the lung dulnap appear clear. IMPRESSION: Left basilar infiltrate versus mass. Clinical correlation is recommended. Dictated by: CEO GURWINDER BRAGG MD Transcribed by: [facility] [place] 11/27/21/13:50 D Wednesday, November 24, 2021 8:34:38 AM [id number] Electronically Reviewed and Signed By: GURWINDER BRAGG MD 12/15/21 10:23 Copy for: 185 HEALTH INFORMATION MGMT DISCHARGED Social History Type Status Start Date End Date Code Code Syst em Smoking History Never smoker (Never Smoked) 807055123 SNOMED CT Sex Male Vital Signs Vital Sign Value Unit [place] Value [place] Unit Date/Time Recent/Initial? Code Code System Body Mass Index 30.27 kg/m2 11/23/2021 20:25 Initial 08570 -5 LOINC Systolic Blood Pressure 138 mm[Hg] 11/26/2021 13:38 Most Recent 8480- 6 LOINC Diastolic Blood Pressure 108 mm[Hg] 11/26/2021 13:38 Most Recent 8462- 4 LOINC Systolic Blood Pressure 130 mm[Hg] 11/23/2021 20:25 Initial 8480- 6 LOINC Diastolic Blood Pressure 104 mm[Hg] 11/23/2021 20:25 Initial 8462- 4 LOINC Body Surface Area 1.73 m2 11/23/2021 20:25 Initial 3140- 1 LOINC Height 152.400 0 cm 60.00 in 11/23/2021 20:25 Initial 8302- 2 LOINC O2 Saturation 94 % 2021 07:30 Most Recent 07151 -5 LOINC O2 Saturation 93 % 2021 20:25 Initial 56639 -5 LOINC Fraction of Inspired Oxygen 21 % 11/26/2021 07:30 Most Recent 3150- 0 LOINC Fraction of Inspired Oxygen 21 % 11/25/2021 19:35 Initial 3150- 0 LOINC Pulse 88.0 /min 11/26/2021 13:38 Most Recent 8867- 4 LOINC Pulse 88.0 /min 11/23/2021 20:25 Initial 8867- 4 LOINC Respiration 20 /min 11/27/19 22 07:30 Most Recent 9279- 1 LOINC Respiration 22 /min 11/24/19 22 20:25 Initial 9279- 1 LOINC Temperature 36.5 Laya 97.7 F 11/27/19 22 07:30 Most Recent 8310- 5 LOINC Temperature 36.8 Laya 98.2 F 11/24/19 20:25 Initial 8310- 5 LOINC Weight 67.45 kg 148.70 lbs 11/23/2021 23:55 Most Recent 60653 -7 LOINC Weight 70.31 kg 155.00 lbs 11/23/2021 20:25 Initial 12486 -7 LOINC Medications Medication Start Date End Date Route Frequency Dose Code Code System Medication Instructions Home Meds amLODIPine Besylate 5MG Oral Tablet 11/25/2021 11/25/2021 ORAL BEDTIME 5 MILLIGRAMS 678554 RxNorm TAKE 5 MILLIGRAMS ORAL BEDTIME Xarelto 15MG Oral Tablet 11/25/2021 10/18/2022 ORAL TWICE A DAY 15 TABLET [id number] RxNorm TAKE 15 TABLET ORAL TWICE A DAY for 20 days then 20 mg each evening Tamsulosin HCl 0.4MG Oral Capsule 11/25/2021 10/18/2022 ORAL BEDTIME 0.4 MILLIGRAMS 704052 RxNorm TAKE 0.4 MILLIGRAMS ORAL BEDTIME Xarelto 20MG Oral Tablet 11/25/2021 11/26/2021 ORAL EVERY EVENING 1 TABLET [id number] RxNorm TAKE 1 TABLET ORAL EVERY EVENING to start after 20 days of 15 mg twice a day (should be on 12/16/2021) amLODIPine Besylate 5MG Oral Tablet 11/25/2021 11/26/2021 ORAL BEDTIME 5 MILLIGRAMS [id number] RxNorm TAKE 5 MILLIGRAMS ORAL BEDTIME Xarelto 20MG Oral Tablet 11/26/2021 Unknown ORAL DAILY 1 TABLET [id number] RxNorm TAKE 1 TABLET ORAL DAILY STARTING 12/16(After taking 15mg twice daily for 20 days) amLODIPine Besylate 5MG Oral Tablet 11/26/2021 11/26/2021 ORAL BEDTIME 5 MILLIGRAMS [id number] RxNorm TAKE 5 MILLIGRAMS ORAL BEDTIME amLODIPine Besylate 5MG Oral Tablet 11/26/2021 Unknown ORAL BEDTIME 5 MILLIGRAMS 19720910 RxNorm TAKE 5 MILLIGRAMS ORAL BEDTIME Benazepril HCl AvPak 20MG Oral Tablet 11/26/2021 Unknown ORAL DAILY 1 TABLET [id number] RxNorm TAKE 1 TABLET ORAL DAILY Keflex 500MG Oral Capsule 10/18/2022 Unknown ORAL FOUR TIMES A DAY 1 CAPSULE 336223 RxNorm TAKE 1 CAPSULE ORAL FOUR TIMES A DAY Ciprofloxacin 500MG Oral Tablet 10/29/2022 11/01/2022 ORAL TWICE A DAY 1 TABLET 117596 RxNorm TAKE 1 TABLET ORAL TWICE A DAY Assessment You had the following problems:PNEUMONIAPLEURISYAKI - ACUTE KIDNEY INJURYHYPERTENSIONCKD STAGE 3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CHRONIC DVT OF RIGHT FEMORAL VEIN Hospital Discharge Instructions Should you have any questions prior to discharge, please contact a member of your healthcare team. If you have left the hospital and have any questions, please contact your primary care physician. 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 Possible PNA. With decreased GFR today, can not perform CTA chest to r/o PE. Admit to hospital for fluids, reassess GFR in AM and perform CTA if able. solumedrol 125mg x1, then continue prednisone 20mg daily with a taper on discharge. PNA: ceftriaxone and azithromycin. CT chest to closer assess for PNA in AM if GFR normal CKD stage 3 - trending creatinine over the past 3 years reveals steady increase. Unsure if benzapril is a prudent choice for antihypertensive. May consider switching to low dose betablocker or amlodipine HTN: hold benzapril. amlodipine 5mg for now. BPH: pt aggreeable to start tamsulosin at night while setting up a urologist locally. Encounters Encounter Diagnosis Start Date Code Code Sys tem Saddle embolus of pulmonary artery without acute cor pulmonale 11/24/2021 SNOMED-CT Personal Care Team Section Performer Name Performer Role Active Date Inactive Da te Discharge Summary Notes [facility] 11/26/2021 14:58 All Demographics Patient Name Age Sex Visit Number Admission Date/Time Attending Physician Date of Service Room and Bed Emergency Contact BRITTNEY VIELKA Matt 1950 71 years Male [id number] 11/24/2021 12:12 LASHAWN MARTINEZ 11/24/2021 [id number] LILLIAN TAMARA - [id number] Discharge Date: 11/26/2021 Admission Diagnosis: Pleural effusion Pleuritic chest pain Acute kidney injury Discharge Diagnosis: Bilateral pulmonary emboli and saddle embolus Recurrent right lower extremity DVT Acute kidney injury Primary Care Physician: Primary Care Physician: PCP NOT SELECTED Consulting Physician(s): Procedures CT scan of the chest, angiogram revealed thrombus in the superior vena cava, saddle embolus, thrombus in the main right and left pulmonary arteries with extension into the left lower lobe, right lower lobe and right upper lobe branches. There is no evidence of right heart strain by CT scan. The aorta is tortuous. Heart size is normal. There is no pericardial effusion. There are mild coronary artery calcifications noted. There is a small left pleural effusion and atelectasis in the left lower lobe. The previously noted area of nodularity in the left lower lobe is not definitely present but could be obscured by the atelectasis. There is no lymphadenopathy. There are mild emphysematous changes. Echocardiogram which revealed no wall motion abnormalities, ejection fraction 60 to 65%, findings consistent with grade 1 diastolic dysfunction. There is mild concentric left ventricular hypertrophy. The right ventricle is normal in size and function. There is no hemodynamically significant valvular aortic stenosis. Mean pulmonary artery pressure estimate is normal. Lower extremity ultrasound revealed no DVT in the left lower extremity. There is nonocclusive thrombus in the right femoral and popliteal veins. Recommendations: Discharge to home Follow-up with primary care provider to discuss mail order Xarelto Discharge Meds List amLODIPine Besylate 5MG Oral Tablet, TAKE 5 MILLIGRAMS ORAL BEDTIME Benazepril HCl AvPak 20MG Oral Tablet, TAKE 1 TABLET ORAL DAILY Tamsulosin HCl 0.4MG Oral Capsule, TAKE 0.4 MILLIGRAMS ORAL BEDTIME Xarelto 15MG Oral Tablet, TAKE 15 TABLET ORAL TWICE A DAY for 20 days then 20 mg each evening Xarelto 20MG Oral Tablet, TAKE 1 TABLET ORAL DAILY STARTING 12/16 (After taking 15mg twice daily for 21 days) History of Present Illness 71 yo male with HTN, CKD stage 3, DVT in RLE last year s/p full course of xarelto, presenting with c/o chest pain that started this morning. Pt states he slept on his left side and woke up with pain with deep inspiration on the left chest. Throughout the day, the pain did not alleviate, so he came to the ED. ACS ruled out. CXR performed revealed some haziness in LLL questionably consistent with PNA. With patient's h/o DVT and now not being on Xarelto, pt needs to be r/o for PE. However, his GFR is down to 35 (creatinine up to 1.9, from baseline of 1.6). He is in need of IV hydration prior to receiving chest scan. Pt also notes decreased urine stream and increased nocturia for sevearl months. Is s/p TURP 10 years ago that really helped his symptoms while he was living in [facility]. Pt does not have a urologist here in [place]. Hospital Course Because of the patient's elevated creatinine, decreased GFR he did not undergo CT angiogram in the emergency department. He was provided with intravenous fluids overnight. Once his creatinine and GFR were slightly improved he underwent CT angiogram. As above, this revealed him to have extensive bilateral pulmonary emboli including saddle embolus. He was started on a heparin drip. Of note, even before the heparin was started the patient reported improvement in his pleuritic chest pain. He underwent lower extremity ultrasound was found to have a recurrent right lower extremity DVT, left leg without evidence of clot. Following 24-hour stabilization on a heparin drip he was transitioned to oral Xarelto 15 mg p.o. twice daily with the plan to continue this dose for 21 days total through 12/15/2021 at which time he will be changed to 20 mg each evening. Patient reports that when he was on Xarelto before his primary care provider ordered it via mail order which ended up being a cheaper option for him. He will be discharged home with samples for him to take until he can get the Xarelto by mail. He was continued on intravenous fluids following the CT angiogram. Basic metabolic profile will be obtained prior to discharge. In light of his elevated creatinine his benazepril was initially held. However, creatinine is back down to 1.47, blood pressure is running high. Benazepril will be resumed. He was started on amlodipine for hypertension when his benazepril was initially held. He tells me that he had been on amlodipine in the past, he recalls that it was supposed to dilate his veins, in the setting of DVT. At this juncture amlodipine will be continued for improved blood pressure control. He has been started on tamsulosin for increased nocturia and decreased urine stream for the past several months. He is status post TURP 10 years ago that helped him at that time. He was living in [facility] at that time and does not have a urologist in [place]. He may need a referral to urology if his symptoms persist despite the tamsulosin. Of note, the patient was given intravenous methylprednisolone followed by 1 dose of prednisone, blood sugar was subsequently elevated to 293. As his breathing was felt to be related to the PEs, the prednisone was discontinued. His blood sugar is now back to normal at 109. Hemoglobin A1c was checked, is 5.8, mean blood glucose 107, there is no evidence of underlying diabetes. The elevated blood sugar was a result of the steroids Labs last 72 hours Test Results Units Reference Range Collected PTT 39 H seconds L=24 H=32 11/25/2021 15:05 WBC 11.57 H th/cmm L=5.00 H=10.00 11/25/2021 06:58 HEMOGLOBIN 14.2 gm/dL L=13.0 H=17.0 11/25/2021 06:58 HEMATOCRIT 42 L % L=45 H=52 11/25/2021 06:58 PLATELET COUNT 145 L th/cmm L=150 H=450 11/25/2021 06:58 PTT 112 HH seconds L=24 H=32 11/25/2021 06:58 PTT 27 seconds L=24 H=32 11/25/2021 01:05 PLATELET COUNT 157 th/cmm L=150 H=450 11/24/2021 21:00 PTT 77 H seconds L=24 H=32 11/24/2021 21:00 WBC 9.77 th/cmm L=5.00 H=10.00 11/24/2021 14:34 HEMOGLOBIN 14.9 gm/dL L=13.0 H=17.0 11/24/2021 14:34 HEMATOCRIT 44 L % L=45 H=52 11/24/2021 14:34 PLATELET COUNT 152 th/cmm L=150 H=450 11/24/2021 14:34 D-DIMER 3.77 H mg/L L=0.19 H=0.50 11/24/2021 14:34 Hgb A1c 5.8 H % L=3.8 H=5.7 11/24/2021 14:34 MEAN BLOOD GLUCOSE 107 mg/dL 11/24/2021 14:34 PROTIME 10.4 seconds L=9.3 H=11.4 11/24/2021 14:34 INR 1.04 L L=2.00 H=3.00 11/24/2021 14:34 PTT 28 seconds L=24 H=32 11/24/2021 14:34 GLUCOSE 293 H mg/dL L=70 H=116 11/24/2021 06:20 BUN 27 H mg/dL L=6 H=25 11/24/2021 06:20 CREATININE 1.78 H mg/dL L=0.67 H=1.17 11/24/2021 06:20 SODIUM SERUM 138 mmol/L L=136 H=145 11/24/2021 06:20 POTASSIUM SERUM 4.4 mmol/L L=3.4 H=5.2 11/24/2021 06:20 CHLORIDE SERUM 104 mmol/L L=96 H=110 11/24/2021 06:20 CARBON DIOXIDE (CO2) 24 mmol/L L=22 H=34 11/24/2021 06:20 ANION GAP 10 mmol/L 11/24/2021 06:20 CALCIUM SERUM 8.4 mg/dL L=8.2 H=10.2 11/24/2021 06:20 WBC 6.76 th/cmm L=5.00 H=10.00 11/24/2021 06:20 HEMOGLOBIN 15.8 gm/dL L=13.0 H=17.0 11/24/2021 06:20 HEMATOCRIT 46 % L=45 H=52 11/24/2021 06:20 PLATELET COUNT 127 L th/cmm L=150 H=450 11/24/2021 06:20 Tier- INPATIENT/ED 11/23/2021 23:25 SARS COV2 RNA: NEGATIVE REFERENCE RANGE: NEGAT 11/23/2021 23:25 WBC 9.55 th/cmm L=5.00 H=10.00 11/23/2021 20:10 HEMOGLOBIN 17.1 H gm/dL L=13.0 H=17.0 11/23/2021 20:10 HEMATOCRIT 50 % L=45 H=52 11/23/2021 20:10 PLATELET COUNT 154 th/cmm L=150 H=450 11/23/2021 20:10 GLUCOSE 120 H mg/dL L=70 H=116 11/23/2021 20:10 BUN 33 H mg/dL L=6 H=25 11/23/2021 20:10 CREATININE 1.9 H mg/dL L=0.67 H=1.17 11/23/2021 20:10 SODIUM SERUM 137 mmol/L L=136 H=145 11/23/2021 20:10 POTASSIUM SERUM 4.4 mmol/L L=3.4 H=5.2 11/23/2021 20:10 CHLORIDE SERUM 102 mmol/L L=96 H=110 11/23/2021 20:10 CARBON DIOXIDE (CO2) 26 mmol/L L=22 H=34 11/23/2021 20:10 ANION GAP 8.7 mmol/L 11/23/2021 20:10 CALCIUM SERUM 8.9 mg/dL L=8.2 H=10.2 11/23/2021 20:10 BILIRUBIN TOTAL 1.2 mg/dL L=0.0 H=1.3 11/23/2021 20:10 ALK. PHOS. 109 U/L L=46 H=116 11/23/2021 20:10 SGOT (AST) 18 U/L L=15 H=37 11/23/2021 20:10 SGPT (ALT) 19 U/L L=12 H=78 11/23/2021 20:10 TOTAL PROTEIN 7.8 gm/dL L=6.0 H=8.0 11/23/2021 20:10 ALBUMIN 3.5 gm/dL L=3.4 H=5.0 11/23/2021 20:10 PROTIME 11.2 seconds L=9.3 H=11.4 11/23/2021 20:10 INR 1.13 L L=2.00 H=3.00 11/23/2021 20:10 PTT 32 seconds L=24 H=32 11/23/2021 20:10 TROPONIN HS 8.8 pg/mL L=0.0 H=60.4 11/23/2021 20:10 Specimen seq. Random 11/23/2021 20:10 Physical Exam: Vitals: Temperature 36.6 pulse 74 respiratory rate 16 blood pressure 127/99 oxygenation 94 to 98% on room air Heart: Regular rate and rhythm with no murmurs rubs or gallops appreciated Lungs: Clear with no crackles or wheezes Abdomen: Normoactive bowel sounds, soft and nontender Extremities: No cyanosis clubbing or edema Neurologic: Patient is awake, alert and oriented. Speech is fluent, there is no facial droop, strength is 5+ out of 5 in upper and lower extremities bilaterally 40 minutes spent on discharge History and Physical Notes [facility] 11/26/2021 13:06 Patient Name Age Sex Admission Date/Time VIELKA LUGO 1950 71 years Male 11/23/2021 20:04 11/23/2021 23:10 Admission Date: 11/23/2021 Reason for Admission: Left PNA, pleurisy Code Status: Full Code Attending Physician: Lashawn Martinez MD Primary Care Physician: No Demographics Available History of Present Illness Chief Complaint: CHEST PAIN 71 yo male with HTN, CKD stage 3, DVT in RLE last year s/p full course of xarelto, presenting with c/o chest pain that started this morning. Pt states he slept on his left side and woke up with pain with deep inspiration on the left chest. Throughout the day, the pain did not alleviate, so he came to the ED. ACS ruled out. CXR performed revealed some haziness in LLL questionably consistent with PNA. With patient's h/o DVT and now not being on Xarelto, pt needs to be r/o for PE. However, his GFR is down to 35 (creatinine up to 1.9, from baseline of 1.6). He is in need of IV hydration prior to receiving chest scan. Pt also notes decreased urine stream and increased nocturia for sevearl months. Is s/p TURP 10 years ago that really helped his symptoms while he was living in [facility]. Pt does not have a urologist here in [place]. Past Medical/Surgical/Family/Social History PMH DVT of leg, Hypertension, BPH, CKD stage 3, Surgery List Right inguinal hernia, TURP, Family History List denies CAD, FAMILY MEMBER denies DM, FAMILY MEMBER Past Social History: Exsmoker - quit 15 yrs ago. +THC, denies alcohol Allergy List HONEY, food No Known Drug Allergies, medication Active Home Meds Benazepril 10MG Oral Tablet, 20 MILLIGRAMS, ORAL, Medication Reconciliation Source Patient Family PCP List Home List Pharmacy [facility] or Facility list X Review of Systems Constitutional: (-) fever (-) weight changes Eyes: (- ) blurry vision (-) eye pain ENT: (-) sore throat (-) ear pain (-) epistaxis Neck: (-) lymphadenopathy Respiratory: (+) SOB (-) cough Heart: (+) chest pain (-) palpitations Abdomen: (-) nausea (-) vomiting (-) diarrhea Genitourinary: (- ) urinary frequency (-) urgency Extremities: (-) edema Skin: (-) rashes (-) lesions Neuro: (-) headache (-) dizziness. Physical Exam Date/Time BP (mm/Hg) Heart Rate Resp Temp (?C) SPO2% O2 Device 11/23/2021 22:57 164/107 84 16 100 % GENERAL: Adult male, thin, NAD EYES: Pupils are equal, round and reactive to light. Sclerae are white without injection or icterus. HENT: Normocephalic, atraumatic. Mucus membranes moist. Epistaxis absent. NECK: Supple. No thyromegaly or adenopathy. CHEST/LUNGS: Clear to auscultation bilaterally. No rales, rhonchi or wheezes. HEART: Regular rate and rhythm. No murmurs, rubs or gallop. ABDOMEN: Soft, non-distended, non- tender. Normal bowel sounds x4Q. EXTREMITIES: No cyanosis, +trace edema R LE NEUROLOGIC: Muscle strength is graded 5/5 in the upper and lower extremities bilaterally. Sensation to pain, touch intact. PSYCHIATRIC: The patient is oriented x4. Mood and affect are appropriate. Pre-Admission Studies: Labs last 24 hours Test Results Units Reference Range Collected WBC 9.55 th/cmm L=5.00 H=10.00 11/23/2021 20:10 HEMOGLOBIN 17.1 H gm/dL L=13.0 H=17.0 11/23/2021 20:10 HEMATOCRIT 50 % L=45 H=52 11/23/2021 20:10 PLATELET COUNT 154 th/cmm L=150 H=450 11/23/2021 20:10 GLUCOSE 120 H mg/dL L=70 H=116 11/23/2021 20:10 BUN 33 H mg/dL L=6 H=25 11/23/2021 20:10 CREATININE 1.9 H mg/dL L=0.67 H=1.17 11/23/2021 20:10 SODIUM SERUM 137 mmol/L L=136 H=145 11/23/2021 20:10 POTASSIUM SERUM 4.4 mmol/L L=3.4 H=5.2 11/23/2021 20:10 CHLORIDE SERUM 102 mmol/L L=96 H=110 11/23/2021 20:10 CARBON DIOXIDE (CO2) 26 mmol/L L=22 H=34 11/23/2021 20:10 ANION GAP 8.7 mmol/L 11/23/2021 20:10 CALCIUM SERUM 8.9 mg/dL L=8.2 H=10.2 11/23/2021 20:10 BILIRUBIN TOTAL 1.2 mg/dL L=0.0 H=1.3 11/23/2021 20:10 ALK. PHOS. 109 U/L L=46 H=116 11/23/2021 20:10 SGOT (AST) 18 U/L L=15 H=37 11/23/2021 20:10 SGPT (ALT) 19 U/L L=12 H=78 11/23/2021 20:10 TOTAL PROTEIN 7.8 gm/dL L=6.0 H=8.0 11/23/2021 20:10 ALBUMIN 3.5 gm/dL L=3.4 H=5.0 11/23/2021 20:10 PROTIME 11.2 seconds L=9.3 H=11.4 11/23/2021 20:10 INR 1.13 L L=2.00 H=3.00 11/23/2021 20:10 PTT 32 seconds L=24 H=32 11/23/2021 20:10 TROPONIN HS 8.8 pg/mL L=0.0 H=60.4 11/23/2021 20:10 Specimen seq. Random 11/23/2021 20:10 Radiology/EKG: EKG at 8:10 PM on 11/23/2021: Normal sinus rhythm. Heart rate 87 bpm. No acute ischemic changes. CXR: haziness in LLL Problem List CKD stage 3 VICKI - acute kidney injury Pleurisy Pneumonia Hypertension Plan Pleurisy - CXR showing haziness in LLL. Possible PNA. With decreased GFR today, can not perform CTA chest to r/o PE. Admit to hospital for fluids, reassess GFR in AM and perform CTA if able. solumedrol 125mg x1, then continue prednisone 20mg daily with a taper on discharge. PNA: ceftriaxone and azithromycin. CT chest to closer assess for PNA in AM if GFR normal CKD stage 3 - trending creatinine over the past 3 years reveals steady increase. Unsure if benzapril is a prudent choice for antihypertensive. May consider switching to low dose betablocker or amlodipine HTN: hold benzapril. amlodipine 5mg for now. BPH: pt aggreeable to start tamsulosin at night while setting up a urologist locally. Patient admitted as observation as I anticipate them to be here less than 2 midnights due to symptoms of PNA, pleurisy. Progress Notes [facility] 11/24/2021 16:38 11/24/2021, 16:33 SUBJECTIVE: 71-year-old male with history of previous DVT and PE admitted with left-sided pleuritic chest pain. He did not undergo CT angiogram last evening because of increased creatinine, decreased GFR. He underwent CT scan today which reveals him to have extensive pulmonary emboli including saddle embolus. He has been started on a heparin drip. He reports a pleuritic chest pain is improved today. Allergy List HONEY, food No Known Drug Allergies, medication OBJECTIVE: Vital Signs Most Recent Date/Time BP (mm/Hg) Heart Rate Resp Temp (?C) SPO2% O2 Device 11/24/2021 12:02 140/92 79 20 36 TEMPORAL SCANNING 96 % GEN: NAD EYES: No scleral icteris NECK: supple, no LAD PULM: CTA b/l no w/r/r CV: RRR with no m/r/g appreciated ABD: soft, nontender, +BSx4 EXT: Trace lower extremity edema NEURO: A&Ox3, 5/5 muscle strength upper and lower ext b/l. no facial droop. Labs last 24 hours Test Results Units Reference Range Collected WBC 9.77 th/cmm L=5.00 H=10.00 11/24/2021 14:34 HEMOGLOBIN 14.9 gm/dL L=13.0 H=17.0 11/24/2021 14:34 HEMATOCRIT 44 L % L=45 H=52 11/24/2021 14:34 PLATELET COUNT 152 th/cmm L=150 H=450 11/24/2021 14:34 D-DIMER 3.77 H mg/L L=0.19 H=0.50 11/24/2021 14:34 Hgb A1c 5.8 H % L=3.8 H=5.7 11/24/2021 14:34 MEAN BLOOD GLUCOSE 107 mg/dL 11/24/2021 14:34 PROTIME 10.4 seconds L=9.3 H=11.4 11/24/2021 14:34 INR 1.04 L L=2.00 H=3.00 11/24/2021 14:34 PTT 28 seconds L=24 H=32 11/24/2021 14:34 GLUCOSE 293 H mg/dL L=70 H=116 11/24/2021 06:20 BUN 27 H mg/dL L=6 H=25 11/24/2021 06:20 CREATININE 1.78 H mg/dL L=0.67 H=1.17 11/24/2021 06:20 SODIUM SERUM 138 mmol/L L=136 H=145 11/24/2021 06:20 POTASSIUM SERUM 4.4 mmol/L L=3.4 H=5.2 11/24/2021 06:20 CHLORIDE SERUM 104 mmol/L L=96 H=110 11/24/2021 06:20 CARBON DIOXIDE (CO2) 24 mmol/L L=22 H=34 11/24/2021 06:20 ANION GAP 10 mmol/L 11/24/2021 06:20 CALCIUM SERUM 8.4 mg/dL L=8.2 H=10.2 11/24/2021 06:20 WBC 6.76 th/cmm L=5.00 H=10.00 11/24/2021 06:20 HEMOGLOBIN 15.8 gm/dL L=13.0 H=17.0 11/24/2021 06:20 HEMATOCRIT 46 % L=45 H=52 11/24/2021 06:20 PLATELET COUNT 127 L th/cmm L=150 H=450 11/24/2021 06:20 Tier- INPATIENT/ED 11/23/2021 23:25 SARS COV2 RNA: NEGATIVE REFERENCE RANGE: NEGAT 11/23/2021 23:25 WBC 9.55 th/cmm L=5.00 H=10.00 11/23/2021 20:10 HEMOGLOBIN 17.1 H gm/dL L=13.0 H=17.0 11/23/2021 20:10 HEMATOCRIT 50 % L=45 H=52 11/23/2021 20:10 PLATELET COUNT 154 th/cmm L=150 H=450 11/23/2021 20:10 GLUCOSE 120 H mg/dL L=70 H=116 11/23/2021 20:10 BUN 33 H mg/dL L=6 H=25 11/23/2021 20:10 CREATININE 1.9 H mg/dL L=0.67 H=1.17 11/23/2021 20:10 SODIUM SERUM 137 mmol/L L=136 H=145 11/23/2021 20:10 POTASSIUM SERUM 4.4 mmol/L L=3.4 H=5.2 11/23/2021 20:10 CHLORIDE SERUM 102 mmol/L L=96 H=110 11/23/2021 20:10 CARBON DIOXIDE (CO2) 26 mmol/L L=22 H=34 11/23/2021 20:10 ANION GAP 8.7 mmol/L 11/23/2021 20:10 CALCIUM SERUM 8.9 mg/dL L=8.2 H=10.2 11/23/2021 20:10 BILIRUBIN TOTAL 1.2 mg/dL L=0.0 H=1.3 11/23/2021 20:10 ALK. PHOS. 109 U/L L=46 H=116 11/23/2021 20:10 SGOT (AST) 18 U/L L=15 H=37 11/23/2021 20:10 SGPT (ALT) 19 U/L L=12 H=78 11/23/2021 20:10 TOTAL PROTEIN 7.8 gm/dL L=6.0 H=8.0 11/23/2021 20:10 ALBUMIN 3.5 gm/dL L=3.4 H=5.0 11/23/2021 20:10 PROTIME 11.2 seconds L=9.3 H=11.4 11/23/2021 20:10 INR 1.13 L L=2.00 H=3.00 11/23/2021 20:10 PTT 32 seconds L=24 H=32 11/23/2021 20:10 TROPONIN HS 8.8 pg/mL L=0.0 H=60.4 11/23/2021 20:10 Specimen seq. Random 11/23/2021 20:10 ASSESSMENT: Problem List Hypertension Pneumonia Pleurisy VICKI - acute kidney injury CKD stage 3 PLAN: Continue heparin drip, Transition to Xarelto or Eliquis in the next 24 to 48 hours. Echocardiogram Lower extremity ultrasound to evaluate for recurrent DVT. Discontinue antibiotics as CT scan reveals no evidence of pneumonia. There is some atelectasis at the left lung base. Admit to inpatient as he is not stable for discharge. Discontinue prednisone, he has no wheezing. Elevated blood sugars, likely related to the steroids. Hemoglobin A1c of 5.8 suggest that he does not have underlying diabetes. We will continue to monitor blood sugars, cover with sliding scale as indicated for blood sugars over 200. I suspect now that prednisone is discontinued the blood sugars well quickly improved. [facility] 11/25/2021 17:05 11/25/2021, 16:25 SUBJECTIVE: 71-year-old male with history of previous DVT and PE admitted with left-sided pleuritic chest pain. He did not undergo CT angiogram in the ED because of increased creatinine, decreased GFR. He underwent CT scan 11/25 which reveals him to have extensive pulmonary emboli including saddle embolus, emboli in the main right and left pulmonary arteries with extension into the left lower lobe, right lower lobe, right upper lobe branches. There is no evidence of right heart strain by CT scan.. He was started on a heparin drip yesterday aftrnoon. He reports the pleuritic chest pain is improved today. Allergy List HONEY, food No Known Drug Allergies, medication OBJECTIVE: Vital Signs Most Recent Date/Time BP (mm/Hg) Heart Rate Resp Temp (?C) SPO2% O2 Device 11/25/2021 15:15 127/99 74 16 36.6 TEMPORAL SCANNING 94 % GEN: NAD EYES: No scleral icteris NECK: supple, no LAD PULM: CTA b/l no w/r/r CV: RRR with no m/r/g appreciated ABD: soft, nontender, +BSx4 EXT: Trace lower extremity edema NEURO: A&Ox3, 5/5 muscle strength upper and lower ext b/l. no facial droop. Labs last 24 hours Test Results Units Reference Range Collected PTT 39 H seconds L=24 H=32 11/25/2021 15:05 WBC 11.57 H th/cmm L=5.00 H=10.00 11/25/2021 06:58 HEMOGLOBIN 14.2 gm/dL L=13.0 H=17.0 11/25/2021 06:58 HEMATOCRIT 42 L % L=45 H=52 11/25/2021 06:58 PLATELET COUNT 145 L th/cmm L=150 H=450 11/25/2021 06:58 PTT 112 HH seconds L=24 H=32 11/25/2021 06:58 PTT 27 seconds L=24 H=32 11/25/2021 01:05 PLATELET COUNT 157 th/cmm L=150 H=450 11/24/2021 21:00 PTT 77 H seconds L=24 H=32 11/24/2021 21:00 Lower extremity ultrasound reveals no left lower extremity DVT. There is a right lower extremity DVT in the femoral and popliteal veins, nonocclusive. Echocardiogram today revealed no wall motion abnormalities, ejection fraction 60 to 65%. Findings consistent with grade 1 diastolic dysfunction. There is mild concentric left ventricular hypertrophy. The right ventricle is normal in size and function. There is no hemodynamically significant valvular aortic stenosis. ASSESSMENT: Problem List Hypertension Pneumonia Pleurisy VICKI - acute kidney injury CKD stage 3 Multiple subsegmental pulmonary emboli without acute cor pulmonale Chronic DVT of right femoral vein PLAN: D/c heparin drip, Transition to Xarelto 15 mg BID for 21 days then to be continued 20 mg daily Echocardiogram Today revealed no evidence of right heart strain. Lower extremity ultrasound Revealed reveals recurrent right lower extremity non occlusive DVT. No DVT in the left lower extremity. Discontinue antibiotics as CT scan reveals no evidence of pneumonia. There is some atelectasis at the left lung base. Discontinue prednisone, he has no wheezing. Elevated blood sugars, likely related to the steroids. Hemoglobin A1c of 5.8 suggest that he does not have underlying diabetes. Blood sugars today are back to normal after steroids stopped. Will give additional intravenous fluids today for acute kidney injury and with recent CT angiogram yesterday. We will repeat BMP in a.m. Disposition: Suspect the patient will be stable for discharge home tomorrow.
--- OUTSIDE RECORDS SUMMARY | 2024-04-27 13:28 | XMS_ITS ---
Author Organization Unknown Address [address] [place] [address] [phone] Phone Care Team Providers Care Security Control Room Officer Name Role Phone DANIA Ochoa Attending Unavailable Social History Type Status Start Date End Date Code Code Syst em Smoking History Never smoker (Never Smoked) 627384021 SNOMED CT Sex Male Medications Medication Start Date End Date Route Frequency Dose Code Code System Medication Instructions Home Meds amLODIPine Besylate 5MG Oral Tablet 11/25/2021 11/25/2021 ORAL BEDTIME 5 MILLIGRAMS 19720910 RxNorm TAKE 5 MILLIGRAMS ORAL BEDTIME Xarelto 15MG Oral Tablet 11/25/2021 10/18/2022 ORAL TWICE A DAY 15 TABLET 2710917 RxNorm TAKE 15 TABLET ORAL TWICE A DAY for 20 days then 20 mg each evening Tamsulosin HCl 0.4MG Oral Capsule 11/25/2021 10/18/2022 ORAL BEDTIME 0.4 MILLIGRAMS 273550 RxNorm TAKE 0.4 MILLIGRAMS ORAL BEDTIME Xarelto 20MG Oral Tablet 11/25/2021 11/26/2021 ORAL EVERY EVENING 1 TABLET 3931175 RxNorm TAKE 1 TABLET ORAL EVERY EVENING to start after 20 days of 15 mg twice a day (should be on 12/16/2021) amLODIPine Besylate 5MG Oral Tablet 11/25/2021 11/26/2021 ORAL BEDTIME 5 MILLIGRAMS 19720910 RxNorm TAKE 5 MILLIGRAMS ORAL BEDTIME Xarelto 20MG Oral Tablet 11/26/2021 Unknown ORAL DAILY 1 TABLET 0531623 RxNorm TAKE 1 TABLET ORAL DAILY STARTING 12/16(After taking 15mg twice daily for 20 days) amLODIPine Besylate 5MG Oral Tablet 11/26/2021 11/26/2021 ORAL BEDTIME 5 MILLIGRAMS 19720910 RxNorm TAKE 5 MILLIGRAMS ORAL BEDTIME amLODIPine Besylate 5MG Oral Tablet 11/26/2021 Unknown ORAL BEDTIME 5 MILLIGRAMS 984157 RxNorm TAKE 5 MILLIGRAMS ORAL BEDTIME Benazepril HCl AvPak 20MG Oral Tablet 11/26/2021 Unknown ORAL DAILY 1 TABLET 201036 RxNorm TAKE 1 TABLET ORAL DAILY Keflex 500MG Oral Capsule 10/18/2022 Unknown ORAL FOUR TIMES A DAY 1 CAPSULE 998481 RxNorm TAKE 1 CAPSULE ORAL FOUR TIMES A DAY Ciprofloxacin 500MG Oral Tablet 10/29/2022 11/01/2022 ORAL TWICE A DAY 1 TABLET 227326 RxNorm TAKE 1 TABLET ORAL TWICE A [...] physician. 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 16115075 SNOMED-C T 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 089768786 SNOMED-CT BPH 11/23/2021 resolved 846137969 SNOMED-CT DVT OF LEG 11/23/2021 resolved 501493498 SNOMED-C T Allergies and Adverse Reactions Allergy Substance Reaction Severity Start Date Concern Status Code Code System HONEY SOB (SNOMED-CT: 781015388) Active 587809005 SNOMED-CT No Known Drug Allergies Active 685323894 SNOMED-CT Plan of Treatment CT CHEST W/O CONTRAST 06/12/2022 Encounters Encounter Diagnosis Start Date Code Code Sys tem Saddle embolus of pulmonary artery without acute cor pulmonale 11/24/2021 SNOMED-CT Personal Care Team Section Performer Name Performer Role Active Date Inactive Da te
--- OUTSIDE RECORDS SUMMARY | 2024-04-27 13:29 | XMS_ITS ---
Author Organization Unknown Address [address] [place] [address] [phone] Phone Care Team Providers Care Customs Compliance Specialist Name Role Phone ANDREA Alonzo Attending Unavailable JOSÉ LUIS Gresham Primary Unavailable Results CULT URINE CULTURE* - Colle t Date/Time: 10/11/2022 12:00 [facility] ID: [id number] [address] [place] [address], [id number] LOINC: 630-4 Test Value Unit Reference Range Code Code System Flag COLLECTION MODE: NOT STATED 04844-1 LOINC Social History Type Status Start Date End Date Code Code Syst em Smoking History Never smoker (Never Smoked) 846915956 SNOMED CT Sex Male Medications Medication Start Date End Date Route Frequency Dose Code Code System Medication Instructions Home Meds Xarelto 15MG Oral Tablet 11/25/2021 10/18/2022 ORAL TWICE A DAY 15 TABLET 5982257 RxNorm TAKE 15 TABLET ORAL TWICE A DAY for 20 days then 20 mg each evening Tamsulosin HCl 0.4MG Oral Capsule 11/25/2021 10/18/2022 ORAL BEDTIME 0.4 MILLIGRAMS 068172 RxNorm TAKE 0.4 MILLIGRAMS ORAL BEDTIME Xarelto 20MG Oral Tablet 11/26/2021 Unknown ORAL DAILY 1 TABLET 8146003 RxNorm TAKE 1 TABLET ORAL DAILY STARTING 12/16(After taking 15mg twice daily for 20 days) amLODIPine Besylate 5MG Oral Tablet 11/26/2021 Unknown ORAL BEDTIME 5 MILLIGRAMS 283620 RxNorm TAKE 5 MILLIGRAMS ORAL BEDTIME Benazepril HCl AvPak 20MG Oral Tablet 11/26/2021 Unknown ORAL DAILY 1 TABLET 506465 RxNorm TAKE 1 TABLET ORAL DAILY Keflex 500MG Oral Capsule 10/18/2022 Unknown ORAL FOUR TIMES A DAY 1 CAPSULE 998228 RxNorm TAKE 1 CAPSULE ORAL FOUR TIMES A DAY Ciprofloxacin 500MG Oral Tablet 10/29/2022 11/01/2022 ORAL TWICE A DAY 1 TABLET 655948 RxNorm TAKE 1 TABLET ORAL TWICE A [...] Date Status Code Code System PNEUMONIA active 259829782 SNOMED-CT PLEURISY active 001922090 SNOMED-CT VICKI - ACUTE KIDNEY INJURY active 1466 9001 SNOMED-CT HYPERTENSION active 77481736 SNOMED- CT CKD STAGE 3 active 556090899 SNOMED-C T 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 38894380 SNOMED-C T 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 098386771 SNOMED-CT BPH 11/23/2021 resolved 296980574 SNOMED-CT DVT OF LEG 11/23/2021 resolved 363732620 SNOMED-C T Allergies and Adverse Reactions Allergy Substance Reaction Severity Start Date Concern Status Code Code System HONEY SOB (SNOMED-CT: 040606963) Active 576389237 SNOMED-CT No Known Drug Allergies Active 533390481 SNOMED-CT Plan of Treatment CT CHEST W/O CONTRAST 06/12/2022 Encounters Encounter Diagnosis Start Date Code Code Sys tem Nocturia 10/11/2022 382643931 SNOMED-CT Personal Care Team Section Performer Name Performer Role Active Date Inactive Da te
--- OUTSIDE RECORDS SUMMARY | 2024-04-27 13:29 | XMS_ITS ---
Author Organization Unknown Address [address] [place] [address] [phone] Phone Care Team Providers Care Senior Director Insight Name Role Phone ANDREA Alonzo Attending Unavailable JOSÉ LUIS Gresham Primary Unavailable Results CULT URINE CULTURE* - Colle t Date/Time: 09/15/2022 10:00 [facility] ID: [id number] [place], [place], [id number] LOINC: 630-4 Test Value Unit Reference Range Code Code System Flag COLLECTION MODE: CATH 15659-7 LOINC Social History Type Status Start Date End Date Code Code Syst em Smoking History Never smoker (Never Smoked) 314038702 SNOMED CT Sex Male Medications Medication Start Date End Date Route Frequency Dose Code Code System Medication Instructions Home Meds Xarelto 15MG Oral Tablet 11/25/2021 10/18/2022 ORAL TWICE A DAY 15 TABLET 7465434 RxNorm TAKE 15 TABLET ORAL TWICE A DAY for 20 days then 20 mg each evening Tamsulosin HCl 0.4MG Oral Capsule 11/25/2021 10/18/2022 ORAL BEDTIME 0.4 MILLIGRAMS 068689 RxNorm TAKE 0.4 MILLIGRAMS ORAL BEDTIME Xarelto 20MG Oral Tablet 11/26/2021 Unknown ORAL DAILY 1 TABLET 3482944 RxNorm TAKE 1 TABLET ORAL DAILY STARTING 12/16(After taking 15mg twice daily for 20 days) amLODIPine Besylate 5MG Oral Tablet 11/26/2021 Unknown ORAL BEDTIME 5 MILLIGRAMS 886143 RxNorm TAKE 5 MILLIGRAMS ORAL BEDTIME Benazepril HCl AvPak 20MG Oral Tablet 11/26/2021 Unknown ORAL DAILY 1 TABLET 846707 RxNorm TAKE 1 TABLET ORAL DAILY Keflex 500MG Oral Capsule 10/18/2022 Unknown ORAL FOUR TIMES A DAY 1 CAPSULE 251903 RxNorm TAKE 1 CAPSULE ORAL FOUR TIMES A DAY Ciprofloxacin 500MG Oral Tablet 10/29/2022 11/01/2022 ORAL TWICE A DAY 1 TABLET 447577 RxNorm TAKE 1 TABLET ORAL TWICE A [...] Date Status Code Code System PNEUMONIA active 966412176 SNOMED-CT PLEURISY active 231338223 SNOMED-CT VICKI - ACUTE KIDNEY INJURY active 1466 9001 SNOMED-CT HYPERTENSION active 21654050 SNOMED- CT CKD STAGE 3 active 931164606 SNOMED-C T 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 57106512 SNOMED-C T 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 345204859 SNOMED-CT BPH 11/23/2021 resolved 545500451 SNOMED-CT DVT OF LEG 11/23/2021 resolved 472946663 SNOMED-C T Allergies and Adverse Reactions Allergy Substance Reaction Severity Start Date Concern Status Code Code System HONEY SOB (SNOMED-CT: 408784448) Active 060823265 SNOMED-CT No Known Drug Allergies Active 126291814 SNOMED-CT Plan of Treatment CT CHEST W/O CONTRAST 06/12/2022 Encounters Encounter Diagnosis Start Date Code Code Sys tem Lower urinary tract symptoms due to benign prostatic hypertrophy 09/15/2022 [id number] SNOMED-CT Personal Care Team Section Performer Name Performer Role Active Date Inactive Da te
--- OUTSIDE RECORDS SUMMARY | 2024-04-27 13:29 | XMS_ITS ---
Author Organization Unknown Address [address] [place] [address] [phone] Phone Care Team Providers Care Fuel Truck Driver Name Role Phone DANIA Ochoa Attending Unavailable PCP NOT SELECTED Primary Unavailable SUZANNA Irby Secondary Unavailable Social History Type Status Start Date End Date Code Code Syst em Smoking History Never smoker (Never Smoked) 776233205 SNOMED CT Sex Male Medications Medication Start Date End Date Route Frequency Dose Code Code System Medication Instructions Home Meds amLODIPine Besylate 5MG Oral Tablet 11/25/2021 11/25/2021 ORAL BEDTIME 5 MILLIGRAMS 19720910 RxNorm TAKE 5 MILLIGRAMS ORAL BEDTIME Xarelto 15MG Oral Tablet 11/25/2021 10/18/2022 ORAL TWICE A DAY 15 TABLET 4061455 RxNorm TAKE 15 TABLET ORAL TWICE A DAY for 20 days then 20 mg each evening Tamsulosin HCl 0.4MG Oral Capsule 11/25/2021 10/18/2022 ORAL BEDTIME 0.4 MILLIGRAMS 635751 RxNorm TAKE 0.4 MILLIGRAMS ORAL BEDTIME Xarelto 20MG Oral Tablet 11/25/2021 11/26/2021 ORAL EVERY EVENING 1 TABLET 2219829 RxNorm TAKE 1 TABLET ORAL EVERY EVENING to start after 20 days of 15 mg twice a day (should be on 12/16/2021) amLODIPine Besylate 5MG Oral Tablet 11/25/2021 11/26/2021 ORAL BEDTIME 5 MILLIGRAMS 19720910 RxNorm TAKE 5 MILLIGRAMS ORAL BEDTIME Xarelto 20MG Oral Tablet 11/26/2021 Unknown ORAL DAILY 1 TABLET 9049420 RxNorm TAKE 1 TABLET ORAL DAILY STARTING 12/16(After taking 15mg twice daily for 20 days) amLODIPine Besylate 5MG Oral Tablet 11/26/2021 11/26/2021 ORAL BEDTIME 5 MILLIGRAMS 19720910 RxNorm TAKE 5 MILLIGRAMS ORAL BEDTIME amLODIPine Besylate 5MG Oral Tablet 11/26/2021 Unknown ORAL BEDTIME 5 MILLIGRAMS 19720910 RxNorm TAKE 5 MILLIGRAMS ORAL BEDTIME Benazepril HCl AvPak 20MG Oral Tablet 11/26/2021 Unknown ORAL DAILY 1 TABLET 208084 RxNorm TAKE 1 TABLET ORAL DAILY Keflex 500MG Oral Capsule 10/18/2022 Unknown ORAL FOUR TIMES A DAY 1 CAPSULE 099804 RxNorm TAKE 1 CAPSULE ORAL FOUR TIMES A DAY Ciprofloxacin 500MG Oral Tablet 10/29/2022 11/01/2022 ORAL TWICE A DAY 1 TABLET 763743 RxNorm TAKE 1 TABLET ORAL TWICE A [...] Date Status Code Code System PNEUMONIA active 321170600 SNOMED-CT PLEURISY active 458571910 SNOMED-CT VICKI - ACUTE KIDNEY INJURY active 1466 9001 SNOMED-CT HYPERTENSION active 49568496 SNOMED- CT CKD STAGE 3 active 442493639 SNOMED-C T 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 02533365 SNOMED-C T 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 040654600 SNOMED-CT BPH 11/23/2021 resolved 929553664 SNOMED-CT DVT OF LEG 11/23/2021 resolved 443760040 SNOMED-C T Allergies and Adverse Reactions Allergy Substance Reaction Severity Start Date Concern Status Code Code System HONEY SOB (SNOMED-CT: 608286989) Active 136012216 SNOMED-CT No Known Drug Allergies Active 420941917 SNOMED-CT Plan of Treatment CT CHEST W/O CONTRAST 06/12/2022 Encounters Encounter Diagnosis Start Date Code Code Sys tem Lobar pneumonia, unspecified organism 11/23/2021 SNOMED-CT Personal Care Team Section Performer Name Performer Role Active Date Inactive Da te
--- OUTSIDE RECORDS SUMMARY | 2024-04-27 13:29 | XMS_ITS ---
Author Organization Unknown Address [address] [place] [address] [phone] Phone Care Team Providers Care Performance Management Consultant Name Role Phone JOSÉ LUIS Gresham Attending Unavailable Results CT CHEST WO CONTRAST - Compl eted: 06/12/2022 15:13 LOINC: [facility] [place], [place] [address] PACS RIGGER THIRD REPORT Patient Name: VIELKA LUGO MRN: Sex: : Age: [id number] M 1950 72 Account: Accession: Admit: StayType: [id number] 06/12/2022 O/P Ordered: Order ID: Submitted: Ordering Provider: 06/12/2022 15:02 [id number] VANDA LEAL Completed: Technologist: Resulted: 06/12/2022 15:13 MJP 06/12/2022 15:40 Study Description: CT CHEST WO CONTRAST Study Reason: PULMONARY NODULE Technique: Imaging Protocol: Axial computed tomography images with coronal and sagittal reformatted images were created and reviewed. Comparison: Comparison is made with prior examinations. FINDINGS: Tracheobronchial tree: Patent where visualized. Pulmonary parenchyma: No consolidation or dominant measurable mass. There is some residual scarring in the left lower lobe medially. No pulmonary nodules are identified. No focal consolidating infiltrates are seen. Mediastinum and Alla: No dominant adenopathy or fluid collection. The esophagus is unremarkable. Pleura: No effusion or pneumothorax. Heart: The heart is not dilated. No coronary artery calcifications are seen. No pericardial effusion. Aorta: Thoracic aorta non-dilated. Upper abdomen: There is stable renal cysts. No follow-up is recommended. Lymph nodes: Within normal limits. Tubes, Catheters, and Lines: None. Soft tissues: Unremarkable. Bones: Within normal limits for the patient's age. IMPRESSION: 1. No pulmonary nodules. 2. No acute pulmonary process. Radiation Optimization: All CT scans at this facility use at least one of these dose optimization techniques: automated exposure control; mA and/or kV adjustment per patient size (includes targeted exams where dose is matched to clinical indication); or iterative reconstruction. Report Digitally Signed by Vielka Marin on 06/12/2022 03:40 PM EST XR HAND 3V LT* - Completed: 06/12/2022 15:12 LOINC: [facility] [place], [place] [address] PACS RIGGER THIRD REPORT Patient Name: VIELKA LUGO MRN: Sex: : Age: [id number] M 1950 72 Account: Accession: Admit: StayType: [id number] 06/12/2022 O/P Ordered: Order ID: Submitted: Ordering Provider: 06/12/2022 15:02 [id number] VANDA LEAL Completed: Technologist: Resulted: 06/12/2022 15:12 MJP 06/12/2022 15:29 Study Description: XR HAND 3V LT Study Reason: LT HAND PAIN Technique: 2D digital imaging was performed. 3 images were obtained. COMPARISON: None. FINDINGS: Bones: No acute fractures present. No bony destructive lesion is seen. There is been a prior resection of the distal phalanx of the little finger. Posttraumatic changes are seen of the middle phalanx of the little finger. Joints: No dislocation is present. There are mild degenerative changes seen at the fingers with joint space narrowing and periarticular spurring. Findings are most marked at the DIP joints. Soft tissues: Unremarkable. IMPRESSION: Degenerative changes of the hand. Report Digitally Signed by Vielka Marin on 06/12/2022 03:29 PM EST Social History Type Status Start Date End Date Code Code Syst em Smoking History Never smoker (Never Smoked) 016206309 SNOMED CT Sex Male Medications Medication Start Date End Date Route Frequency Dose Code Code System Medication Instructions Home Meds Xarelto 15MG Oral Tablet 11/25/2021 10/18/2022 ORAL TWICE A DAY 15 TABLET 8559259 RxNorm TAKE 15 TABLET ORAL TWICE A DAY for 20 days then 20 mg each evening Tamsulosin HCl 0.4MG Oral Capsule 11/25/2021 10/18/2022 ORAL BEDTIME 0.4 MILLIGRAMS 482254 RxNorm TAKE 0.4 MILLIGRAMS ORAL BEDTIME Xarelto 20MG Oral Tablet 11/26/2021 Unknown ORAL DAILY 1 TABLET 2505131 RxNorm TAKE 1 TABLET ORAL DAILY STARTING 12/16(After taking 15mg twice daily for 20 days) amLODIPine Besylate 5MG Oral Tablet 11/26/2021 Unknown ORAL BEDTIME 5 MILLIGRAMS 611548 RxNorm TAKE 5 MILLIGRAMS ORAL BEDTIME Benazepril HCl AvPak 20MG Oral Tablet 11/26/2021 Unknown ORAL DAILY 1 TABLET 484819 RxNorm TAKE 1 TABLET ORAL DAILY Keflex 500MG Oral Capsule 10/18/2022 Unknown ORAL FOUR TIMES A DAY 1 CAPSULE 442275 RxNorm TAKE 1 CAPSULE ORAL FOUR TIMES A DAY Ciprofloxacin 500MG Oral Tablet 10/29/2022 11/01/2022 ORAL TWICE A DAY 1 TABLET 702319 RxNorm TAKE 1 TABLET ORAL TWICE A [...] Date Status Code Code System PNEUMONIA active 624453870 SNOMED-CT PLEURISY active 290899429 SNOMED-CT VICKI - ACUTE KIDNEY INJURY active 1466 9001 SNOMED-CT HYPERTENSION active 08610127 SNOMED- CT CKD STAGE 3 active 932667434 SNOMED-C T 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 82316056 SNOMED-C T 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 721248968 SNOMED-CT BPH 11/23/2021 resolved 845164299 SNOMED-CT DVT OF LEG 11/23/2021 resolved 220094592 SNOMED-C T Allergies and Adverse Reactions Allergy Substance Reaction Severity Start Date Concern Status Code Code System HONEY SOB (SNOMED-CT: 183067353) Active 815793403 SNOMED-CT No Known Drug Allergies Active 763073300 SNOMED-CT Plan of Treatment CT CHEST W/O CONTRAST 06/12/2022 Encounters Encounter Diagnosis Start Date Code Code Sys tem Solitary pulmonary nodule 06/12/2022 SN OMED-CT Personal Care Team Section Performer Name Performer Role Active Date Inactive Da te
--- OUTSIDE RECORDS SUMMARY | 2024-04-27 13:30 | XMS_ITS ---
Author Organization Unknown Address [address] [place] [address] [phone] Phone Care Team Providers Care Electrophysiologist Name Role Phone BHARTI SANCHES Registered Nurse Unavailable NAGI Gutierrez Attending Unavailable JOSÉ LUIS Gresham Primary Unavailable MAYTE PULLIAM Xhandoff Unavailable UNLISTED PROVIDER - REQUESTED Xhandoff Un available Results XR FOOT 3V LT* - Completed: 11/01/2022 18:23 LOINC: [facility] [place], [place] [address] PACS FURNACE CLEANER REPORT Patient Name: VIELKA LUGO MRN: Sex: : Age: [id number] M 1950 72 Account: Accession: Admit: StayType: [id number] 11/01/2022 E/R Ordered: Order ID: Submitted: Ordering Provider: 11/01/2022 18:14 [id number] FRANCISCO GRAHAM Completed: Technologist: Resulted: 11/01/2022 18:23 DA 11/02/2022 07:46 Study Description: XR FOOT 3V LT Study Reason: Trauma 3Images were obtained. COMPARISON: None FINDINGS: There is a screw across the healed fracture site of the medial malleolus. There is no evidence of fracture nor diastasis of the Lisfranc joint. No osseous lesions nor erosions and no radiopaque foreign body evident. Mild degenerative changes in the great toe metatarsophalangeal joint. IMPRESSION: No significant acute osseous findings in the foot. Report Digitally Signed by Pancho Mohamud on 11/02/2022 07:46 AM EDT Social History Type Status Start Date End Date Code Code Syst em Smoking History Never smoker (Never Smoked) 307606600 SNOMED CT Sex Male Vital Signs Vital Sign Value Unit Elaine Value Elaine Unit Date/Time Recent/Initial? Code Code System Body Mass Index 21.41 kg/m2 11/01/2022 17:59 Initial 67197 -5 LOINC Systolic Blood Pressure 106 mm[Hg] 11/01/2022 17:59 Initial 8480- 6 LOINC Diastolic Blood Pressure 73 mm[Hg] 11/01/2022 17:59 Initial 8462- 4 LOINC Body Surface Area 1.79 m2 11/01/2022 17:59 Initial 3140- 1 LOINC Height 175.260 0 cm 69.00 in 11/01/2022 17:59 Initial 8302- 2 LOINC O2 Saturation 97 % 2022 17:59 Initial 79926 -5 LOINC Pulse 74.0 /min 11/01/2022 17:59 Initial 8867- 4 LOINC Respiration 18 /min 11/02/19 17:59 Initial 9279- 1 LOINC Temperature 36.6 Laya 97.9 F 11/02/19 17:59 Initial 8310- 5 LOINC Weight 65.77 kg 145.00 lbs 11/01/2022 17:59 Initial 20994 -7 LOINC Medications Medication Start Date End Date Route Frequency Dose Code Code System Medication Instructions Home Meds Xarelto 20MG Oral Tablet 11/26/2021 Unknown ORAL DAILY 1 TABLET 1599880 RxNorm TAKE 1 TABLET ORAL DAILY STARTING 12/16(After taking 15mg twice daily for 20 days) amLODIPine Besylate 5MG Oral Tablet 11/26/2021 Unknown ORAL BEDTIME 5 MILLIGRAMS 852600 RxNorm TAKE 5 MILLIGRAMS ORAL BEDTIME Benazepril HCl AvPak 20MG Oral Tablet 11/26/2021 Unknown ORAL DAILY 1 TABLET 461524 RxNorm TAKE 1 TABLET ORAL DAILY Keflex 500MG Oral Capsule 10/18/2022 Unknown ORAL FOUR TIMES A DAY 1 CAPSULE 981833 RxNorm TAKE 1 CAPSULE ORAL FOUR TIMES A DAY Ciprofloxacin 500MG Oral Tablet 10/29/2022 3 ORAL TWICE A DAY 1 TABLET 096534 RxNorm TAKE 1 TABLET ORAL TWICE A [...] Date Status Code Code System PNEUMONIA active 943843953 SNOMED-CT PLEURISY active 639299148 SNOMED-CT VICKI - ACUTE KIDNEY INJURY active 1466 9001 SNOMED-CT HYPERTENSION active 25495825 SNOMED- CT CKD STAGE 3 active 345746847 SNOMED-C T 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 06696238 SNOMED-C T 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 704736479 SNOMED-CT BPH 11/23/2021 resolved 670486371 SNOMED-CT DVT OF LEG 11/23/2021 resolved 158404065 SNOMED-C T Allergies and Adverse Reactions Allergy Substance Reaction Severity Start Date Concern Status Code Code System HONEY SOB (SNOMED-CT: 666607101) Active 646619204 SNOMED-CT No Known Drug Allergies Active 319770643 SNOMED-CT Plan of Treatment CT CHEST W/O CONTRAST 06/12/2022 Encounters Encounter Diagnosis Start Date Code Code Sys tem 11/01/2022 [id number] SNOMED-CT Personal Care Team Section Performer Name Performer Role Active Date Inactive Da elio
--- OUTSIDE RECORDS SUMMARY | 2024-04-27 13:30 | XMS_ITS ---
Author Organization Unknown Address [address] [place] [phone] Phone Care Team Providers Care Implementation Architect Name Role Phone BOO DELONG Registered Nurse Unavailable BHARTI SANCHES Registered Nurse Unavailable NAGI Gutierrez Attending Unavailable JOSÉ LUIS Gresham Primary Unavailable UNLISTED PROVIDER - REQUESTED Xhandoff Un available Results COMPREHENSIVE METABOLIC PANE L (CMP) - Collect Date/Time: 10/29/2022 17:35 [facility] ID: [id number] [address] [place], [place], [address] LOINC: 96335-0 Test Value Unit Reference Range Code Code System Flag GLUCOSE 101 mg/dL L=70 H=116 2345-7 LOINC BUN 35 mg/dL L=6 H=25 3094-0 LOINC H CREATININE 1.84 mg/dL L=0.67 H=1.17 2160-0 LOINC H SODIUM SERUM 137 mmol/L L=136 H=145 2951-2 LOINC POTASSIUM SERUM 4.7 mmol/L L=3.4 H=5.2 2823-3 LOINC CHLORIDE SERUM 106 mmol/L L=96 H=110 2075-0 LOINC CARBON DIOXIDE (CO2) 23 mmol/L L=22 H=34 2028-9 LOINC ANION GAP 7.8 mmol/L 14252-3 LOINC CALCIUM SERUM 9.0 mg/dL L=8.2 H=10.2 18687-7 LOINC BILIRUBIN TOTAL 0.5 mg/dL L=0.0 H=1.3 1975-2 LOINC ALK. PHOS. 72 U/L L=46 H=116 6768-6 LOINC SGOT (AST) 25 U/L L=15 H=37 1920-8 LOINC SGPT (ALT) 28 U/L L=12 H=78 1742-6 LOINC TOTAL PROTEIN 6.9 gm/dL L=6.0 H=8.0 2885-2 LOINC ALBUMIN 2.6 gm/dL L=3.4 H=5.0 1751-7 LOINC L AGE 72 years eGFR (non-Afr.Amer.) 36 mL/min 06205-1 LOINC eGFR (Afr-Marshallese) 44 mL/min 33447-8 LOINC CBC W/ DIFFERENTIAL* - Colle ct Date/Time: 10/29/2022 17:35 [facility] ID: [id number] [address] [place], [place], [address] LOINC: 77948-3 Test Value Unit Reference Range Code Code System Flag WBC 6.65 th/cmm L=5.00 H=10.00 6690-2 LOINC NEUT % 70.9 % L=40.0 H=80.0 LYMPH % 15.5 % L=10.0 H=50.0 MONO % 12.0 % L=2.0 H=12.0 30412-6 LOINC EOS % 0.8 % L=0.0 H=8.0 BASO % 0.5 % L=0.0 H=3.0 IG % 0.3 % L=0.0 H=1.1 2514-8 LOINC NRBC % 0.0 % L=0.0 H=0.0 31829-5 LOINC NEUT abs count 4.7 th/cmm L=1.6 H=8.4 751-8 LOINC LYMPH abs count 1.0 th/cmm L=1.5 H=4.0 731-0 LOINC L MONO abs count 0.8 th/cmm L=0.2 H=1.0 742-7 LOINC EOS abs count 0.1 th/cmm L=0.0 H=0.5 711-2 LOINC BASO abs count 0.0 th/cmm L=0.0 H=0.2 704-7 LOINC IG abs count 0.0 th/cmm L=0.0 H=0.1 02822-7 LOINC NRBC abs count 0.0 mil/cmm L=0.0 H=0.0 88808-0 LOINC RBC 4.03 mil/cmm L=4.30 H=6.20 789-8 LOINC L HEMOGLOBIN 13.4 gm/dL L=13.0 H=17.0 718-7 LOINC HEMATOCRIT 41 % L=45 H=52 4544-3 LOINC L MCV 101 fL L=82 H=92 787-2 LOINC H MCH 33.3 pg L=27.0 H=31.0 785-6 LOINC H MCHC 33.1 % L=32.0 H=36.0 786-4 LOINC RDW-SD 45.1 fL L=39.0 H=49.0 788-0 LOINC PLATELET COUNT 264 th/cmm L=150 H=450 777-3 LOINC CULT URINE CULTURE* - [facility] t Date/Time: 10/29/2022 16:20 [facility] ID: [id number] [address] [place] [address], [phone] LOINC: 630-4 Test Value Unit Reference Range Code Code System Flag COLLECTION MODE: CLEAN CATCH 72014-0 LOINC URINALYSIS WITH REFLEX CULT IF POSITIVE* - Collect Date/Time: 10/29/2022 16:20 [facility] ID: [id number] [address] [place] [address], [address] LOINC: 28091-0 Test Value Unit Reference Range Code Code System Flag COLLECTION MODE: CLEAN CATCH 21445-1 LOINC Color YELLOW yellow 5778-6 LOINC Appearance CLEAR clear 5767-9 LOINC Glucose urine NEGATIVE negative mg/dl 24289-1 LOINC Bilirubin NEGATIVE negative 5770-3 LOINC Ketones NEGATIVE negative mg/dl 2514-8 LOINC Spec gravity 1.015 1.003 - 1.030 5811-5 LOINC pH urine 6.0 5.0 - 7.0 2756-5 LOINC Protein NEGATIVE negative mg/dl 13591-4 LOINC Urobilinogen 0.2 <or= 1 EU/dl 21259-3 LOINC Nitrite. NEGATIVE negative 5802-4 LOINC Blood SMALL negative 5794-3 LOINC A Leukocytes. SMALL negative A MICROSCOPIC INDICATED WBCs. >100 0-5 / hpf 18231-1 LOINC RBCs 0-5 0-5 / hpf 95981-6 LOINC Epith cells none 0-5 / hpf 40812-8 LOINC Crystals none none Bacteria minimal none Mucus present none 8247-9 LOINC Casts 0-5 none /lpf 84580-1 LOINC Cast types fine gran Other 82649-5 LOINC XR CHEST 2V PA AND LATERAL - Completed: 10/29/2022 18:45 LOINC: [facility] [place], [place] [address] PACS DIESEL TECHNICIAN REPORT Patient Name: VIELKA LUGO MRN: Sex: : Age: [id number] M 1950 72 Account: Accession: Admit: StayType: [id number] 10/29/2022 E/R Ordered: Order ID: Submitted: Ordering Provider: 10/29/2022 18:27 [id number] FRANCISCO GRAHAM Completed: Technologist: Resulted: 10/29/2022 18:45 EXC 10/29/2022 18:48 Study Description: XR CHEST 2V PA AND LATERAL Study Reason: Trauma 2 Views TECHNIQUE: 2D digital imaging was performed. COMPARISON: 23 November 2021 FINDINGS: The heart size is normal. The aorta is tortuous. The lungs are clear. No rib fractures are visible. There is no pneumothorax. There is a stable mild compression fracture of the mid thoracic vertebral body. No acute compression fractures visible. Impression: No acute abnormality. Report Digitally Signed by Tish Parada on 10/29/2022 06:48 PM EDT Social History Type Status Start Date End Date Code Code Syst em Smoking History Never smoker (Never Smoked) 951712884 SNOMED CT Sex Male Vital Signs Vital Sign Value Unit [place] Value [place] Unit Date/Time Recent/Initial? Code Code System Body Mass Index 21.24 kg/m2 10/29/2022 16:13 Initial 55529 -5 LOINC Systolic Blood Pressure 124 mm[Hg] 10/29/2022 20:21 Most Recent 8480- 6 LOINC Diastolic Blood Pressure 89 mm[Hg] 10/29/2022 20:21 Most Recent 8462- 4 LOINC Systolic Blood Pressure 100 mm[Hg] 10/29/2022 16:13 Initial 8480- 6 LOINC Diastolic Blood Pressure 75 mm[Hg] 10/29/2022 16:13 Initial 8462- 4 LOINC Body Surface Area 1.82 m2 10/29/2022 16:13 Initial 3140- 1 LOINC Height 177.800 0 cm 70.00 in 10/29/2022 16:13 Initial 8302- 2 INC O2 Saturation 97 % 2022 20:21 Most Recent 21068 -5 LOINC O2 Saturation 99 % 2022 16:13 Initial 79036 -5 LOINC Pulse 64.0 /min 10/29/2022 20:21 Most Recent 8867- 4 LOINC Pulse 75.0 /min 10/29/2022 16:13 Initial 8867- 4 LOINC Respiration 18 /min 10/30/19 20:21 Most Recent 9279- 1 LOINC Respiration 19 /min 10/30/19 23 16:13 Initial 9279- 1 INC Temperature 36.4 Laya 97.5 F 10/30/19 16:13 Initial 8310- 5 LOINC Weight 67.13 kg 148.00 lbs 10/29/2022 16:13 Initial 89190 -7 [facility] Medications Medication Start Date End Date Route Frequency Dose Code Code System Medication Instructions Home Meds Xarelto 20MG Oral Tablet 11/26/2021 Unknown ORAL DAILY 1 TABLET 8067402 RxNorm TAKE 1 TABLET ORAL DAILY STARTING 12/16(After taking 15mg twice daily for 20 days) amLODIPine Besylate 5MG Oral Tablet 11/26/2021 Unknown ORAL BEDTIME 5 MILLIGRAMS 942172 RxNorm TAKE 5 MILLIGRAMS ORAL BEDTIME Benazepril HCl AvPak 20MG Oral Tablet 11/26/2021 Unknown ORAL DAILY 1 TABLET 628610 RxNorm TAKE 1 TABLET ORAL DAILY Keflex 500MG Oral Capsule 10/18/2022 Unknown ORAL FOUR TIMES A DAY 1 CAPSULE 990063 RxNorm TAKE 1 CAPSULE ORAL FOUR TIMES A DAY Ciprofloxacin 500MG Oral Tablet 10/29/2022 3 ORAL TWICE A DAY 1 TABLET 456195 RxNorm TAKE 1 TABLET ORAL TWICE A [...] Date Status Code Code System PNEUMONIA active 689882638 SNOMED-CT PLEURISY active 254230657 SNOMED-CT VICKI - ACUTE KIDNEY INJURY active 1466 9001 SNOMED-CT HYPERTENSION active 23806931 SNOMED- CT CKD STAGE 3 active 828719359 SNOMED-C T 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 14153996 SNOMED-C T 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 131561029 SNOMED-CT BPH 11/23/2021 resolved 226595469 SNOMED-CT DVT OF LEG 11/23/2021 resolved 879589437 SNOMED-C T Allergies and Adverse Reactions Allergy Substance Reaction Severity Start Date Concern Status Code Code System HONEY SOB (SNOMED-CT: 093272113) Active 087354742 SNOMED-CT No Known Drug Allergies Active 615617571 SNOMED-CT Plan of Treatment CT CHEST W/O CONTRAST 06/12/2022 Encounters Encounter Diagnosis Start Date Code Code Sys tem Urinary tract infection, site not specified 10/29/2022 SNOMED-CT Personal Care Team Section Performer Name Performer Role Active Date Inactive Da te Imaging Narrative Notes [facility] [place], [place] [address] PACS DIESEL TECHNICIAN REPORT Patient Name: VIELKA LUGO MRN: Sex: : Age: [id number] M 1950 Account: Accession: Admit: StayType: [id number] 10/29/2022 E/R Ordered: Order ID: Submitted: Ordering Provider: 10/29/2022 18:27 [id number] FRANCISCO GRAHAM Completed: Technologist: Resulted: 10/29/2022 18:45 EXC 10/29/2022 18:48 Study Description: XR CHEST 2V PA AND LATERAL Study Reason: Trauma 2 Views TECHNIQUE: 2D digital imaging was performed. COMPARISON: 23 November 2021 FINDINGS: The heart size is normal. The aorta is tortuous. The lungs are clear. No rib fractures are visible. There is no pneumothorax. There is a stable mild compression fracture of the mid thoracic vertebral body. No acute compression fractures visible. Impression: No acute abnormality. Report Digitally Signed by Tish Parada on 10/29/2022 06:48 PM EDT
--- OUTSIDE RECORDS SUMMARY | 2024-04-27 13:30 | XMS_ITS ---
Author Organization Unknown Address [address] [place] [phone] Phone Care Team Providers Care Social Work Administrator Name Role Phone MELVI RASHEED Registered Nurse Unavailable ZHENG Medrano Attending Unavailable SUZANNA Irby ER Unavailable JOSÉ LUIS Gresham Primary Unavailable UNLISTED PROVIDER - REQUESTED Xhandoff Un available Results COMPREHENSIVE METABOLIC PANE L (CMP) - Collect Date/Time: 10/18/2022 14:35 [facility] ID: [id number] [address] [place], [place], [address] LOINC: 72898-7 Test Value Unit Reference Range Code Code System Flag GLUCOSE 105 mg/dL L=70 H=116 2345-7 LOINC BUN 35 mg/dL L=6 H=25 3094-0 LOINC H CREATININE 1.79 mg/dL L=0.67 H=1.17 2160-0 LOINC H SODIUM SERUM 140 mmol/L L=136 H=145 2951-2 LOINC POTASSIUM SERUM 4.5 mmol/L L=3.4 H=5.2 2823-3 LOINC CHLORIDE SERUM 106 mmol/L L=96 H=110 2075-0 LOINC CARBON DIOXIDE (CO2) 25 mmol/L L=22 H=34 2028-9 LOINC ANION GAP 9.1 mmol/L 02709-2 LOINC CALCIUM SERUM 9.0 mg/dL L=8.2 H=10.2 35906-9 LOINC BILIRUBIN TOTAL 0.9 mg/dL L=0.0 H=1.3 1975-2 LOINC ALK. PHOS. 103 U/L L=46 H=116 6768-6 LOINC SGOT (AST) 27 U/L L=15 H=37 1920-8 LOINC SGPT (ALT) 34 U/L L=12 H=78 1742-6 LOINC TOTAL PROTEIN 7.5 gm/dL L=6.0 H=8.0 2885-2 LOINC ALBUMIN 3.5 gm/dL L=3.4 H=5.0 1751-7 LOINC AGE 72 years eGFR (non-Afr.Amer.) 38 mL/min 57211-2 LOINC eGFR (Afr-Guinean) 45 mL/min 87525-5 LOINC CBC W/ DIFFERENTIAL* - Colle ct Date/Time: 10/18/2022 14:35 [facility] ID: [id number] [address] [place], [place], [address] LOINC: 30933-7 Test Value Unit Reference Range Code Code System Flag WBC 7.45 th/cmm L=5.00 H=10.00 6690-2 LOINC NEUT % 76.4 % L=40.0 H=80.0 LYMPH % 11.4 % L=10.0 H=50.0 MONO % 9.4 % L=2.0 H=12.0 29022-6 LOINC EOS % 1.9 % L=0.0 H=8.0 BASO % 0.5 % L=0.0 H=3.0 IG % 0.4 % L=0.0 H=1.1 2514-8 LOINC NRBC % 0.0 % L=0.0 H=0.0 83334-8 LOINC NEUT abs count 5.7 th/cmm L=1.6 H=8.4 751-8 LOINC LYMPH abs count 0.9 th/cmm L=1.5 H=4.0 731-0 LOINC L MONO abs count 0.7 th/cmm L=0.2 H=1.0 742-7 LOINC EOS abs count 0.1 th/cmm L=0.0 H=0.5 711-2 LOINC BASO abs count 0.0 th/cmm L=0.0 H=0.2 704-7 LOINC IG abs count 0.0 th/cmm L=0.0 H=0.1 71149-8 LOINC NRBC abs count 0.0 mil/cmm L=0.0 H=0.0 50164-8 LOINC RBC 4.86 mil/cmm L=4.30 H=6.20 789-8 LOINC HEMOGLOBIN 16.2 gm/dL L=13.0 H=17.0 718-7 LOINC HEMATOCRIT 49 % L=45 H=52 4544-3 LOINC MCV 100 fL L=82 H=92 787-2 LOINC H MCH 33.3 pg L=27.0 H=31.0 785-6 LOINC H MCHC 33.3 % L=32.0 H=36.0 786-4 LOINC RDW-SD 45.7 fL L=39.0 H=49.0 788-0 LOINC PLATELET COUNT 141 th/cmm L=150 H=450 777-3 LOINC L CULT URINE CULTURE* - [facility] t Date/Time: 10/18/2022 14:33 [facility] ID: [id number] [address] [place] [address], [phone] LOINC: 630-4 Test Value Unit Reference Range Code Code System Flag COLLECTION MODE: CLEAN CATCH 12760-9 LOINC URINALYSIS WITH REFLEX CULT IF POSITIVE* - Collect Date/Time: 10/18/2022 14:33 [facility] ID: [id number] [address] [place] [address], [address] LOINC: 10185-8 Test Value Unit Reference Range Code Code System Flag COLLECTION MODE: CLEAN CATCH 16395-7 LOINC Color YELLOW yellow 5778-6 LOINC Appearance SL CLOUD clear 5767-9 LOINC Glucose urine NEGATIVE negative mg/dl 79257-1 LOINC Bilirubin NEGATIVE negative 5770-3 LOINC Ketones NEGATIVE negative mg/dl 2514-8 LOINC Spec gravity 1.015 1.003 - 1.030 5811-5 LOINC pH urine 6.0 5.0 - 7.0 2756-5 LOINC Protein TRACE negative mg/dl 20840-5 LOINC Urobilinogen 0.2 <or= 1 EU/dl 20920-7 LOINC Nitrite. NEGATIVE negative 5802-4 LOINC Blood LARGE negative 5794-3 LOINC A Leukocytes. SMALL negative A MICROSCOPIC INDICATED WBCs. 25-100 0-5 / hpf 22901-8 LOINC RBCs 25-100 0-5 / hpf 18640-1 LOINC Epith cells none 0-5 / hpf 03984-4 LOINC Crystals none none Bacteria moderate none Mucus present none 8247-9 LOINC Casts none none /lpf 67140-3 LOINC Other 56183-[address] ABD PELVIS WO IV OR ORAL CONTRAST - Completed: 10/18/2022 14:42 LOINC: [facility] RADIOLOG[facility] [place], [place] [address] PACS HOG FEEDER REPORT Patient Name: VIELKA LUGO MRN: Sex: : Age: [id number] M 1950 72 Account: Accession: Admit: StayType: [id number] 10/18/2022 E/R Ordered: Order ID: Submitted: Ordering Provider: 10/18/2022 14:31 [id number] CHARLES FRENCH Completed: Technologist: Resulted: 10/18/2022 14:42 MLL 10/18/2022 14:54 Study Description: CT ABD PELVIS WO IV OR ORAL CONTRAST Study Reason: Left Flank Pain Technique: Imaging Protocol: Axial computed tomography images with coronal and sagittal reformatted images were created and reviewed. Comparison:Chest CT 12 June 2022 FINDINGS: ABDOMEN: Lung Bases: Mild scarring. Stomach and small bowel:No dilatation or wall thickening. Liver: Normal density. No measurable mass. Gallbladder and biliary tract: No radiodense calculus or biliary ductal dilation. Pancreas: Normal density, no abnormal calcifications or inflammatory process. Spleen: Normal. Kidneys: Normal size, contour and axis.No radiodense stones or obstructive uropathy. Bilateral renal cysts. No suspicious masses seen. Adrenal glands: No mass is seen. Lymph nodes: Within normal limits. Abdominal Aorta: Abdominal portion non-dilated. Spine: Mild scoliosis. Degenerative changes.No fractures.No suspicious lesions. PELVIS: Bladder: Moderate wall thickening. Some stranding in the surrounding fat which could indicate cystitis. Question of bladder wall trabeculation. No visible mass. No calculi. Colon: Large quantity of stool is noted in the a sending through transverse colon. Moderate quantity of stool descending and rectosigmoid.. No obstruction or bowel wall thickening. No evidence of appendicitis. Peritoneal cavity: No ascites, collection or mesenteric inflammatory response. No free air. Reproductive organs: Prostate minimally enlarged. Bones: Unremarkable for age. Soft Tissues: Within normal limits. IMPRESSION: Bladder wall thickening could indicate cystitis. No evidence of urinary tract calculi or hydronephrosis. Increased quantity of stool. No bowel wall thickening or evidence of obstruction. Radiation Optimization: All CT scans at this facility use at least one of these dose optimization techniques: automated exposure control; mA and/or kV adjustment per patient size (includes targeted exams where dose is matched to clinical indication); or iterative reconstruction. Report Digitally Signed by Tish Parada on 10/18/2022 02:54 PM EDT Social History Type Status Start Date End Date Code Code Syst em Smoking History Never smoker (Never Smoked) 642360580 [facility] Vital Signs Vital Sign Value Unit Dawson Value Dawson Unit Date/Time Recent/Initial? Code Code System Body Mass Index 21.52 kg/m2 10/18/2022 14:09 Initial 90528 -5 LOINC Systolic Blood Pressure 129 mm[Hg] 10/18/2022 15:30 Most Recent 8480- 6 LOINC Diastolic Blood Pressure 85 mm[Hg] 10/18/2022 15:30 Most Recent 8462- 4 LOINC Systolic Blood Pressure 126 mm[Hg] 10/18/2022 14:09 Initial 8480- 6 LOINC Diastolic Blood Pressure 90 mm[Hg] 10/18/2022 14:09 Initial 8462- 4 LOINC Body Surface Area 1.83 m2 10/18/2022 14:09 Initial 3140- 1 LOINC Height 177.800 0 cm 70.00 in 10/18/2022 14:09 Initial 8302- 2 LOINC O2 Saturation 97 % 2022 15:30 Most Recent 24229 -5 LOINC O2 Saturation 98 % 2022 14:09 Initial 48234 -5 LOINC Pulse 67.0 /min 10/18/2022 15:30 Most Recent 8867- 4 LOINC Pulse 75.0 /min 10/18/2022 14:09 Initial 8867- 4 LOINC Respiration 16 /min 10/19/19 15:30 Most Recent 9279- 1 LOINC Respiration 18 /min 10/19/19 14:09 Initial 9279- 1 LOINC Temperature 36.2 Laya 97.2 F 10/19/19 14:09 Initial 8310- 5 LOINC Weight 68.04 kg 150.00 lbs 10/18/2022 14:09 Initial 64467 -7 [facility] Medications Medication Start Date End Date Route Frequency Dose Code Code System Medication Instructions Home Meds Xarelto 15MG Oral Tablet 11/25/2021 10/18/2022 ORAL TWICE A DAY 15 TABLET 2843738 RxNorm TAKE 15 TABLET ORAL TWICE A DAY for 20 days then 20 mg each evening Tamsulosin HCl 0.4MG Oral Capsule 11/25/2021 10/18/2022 ORAL BEDTIME 0.4 MILLIGRAMS 420274 RxNorm TAKE 0.4 MILLIGRAMS ORAL BEDTIME Xarelto 20MG Oral Tablet 11/26/2021 Unknown ORAL DAILY 1 TABLET 8537823 RxNorm TAKE 1 TABLET ORAL DAILY STARTING 12/16(After taking 15mg twice daily for 20 days) amLODIPine Besylate 5MG Oral Tablet 11/26/2021 Unknown ORAL BEDTIME 5 MILLIGRAMS 601294 RxNorm TAKE 5 MILLIGRAMS ORAL BEDTIME Benazepril HCl AvPak 20MG Oral Tablet 11/26/2021 Unknown ORAL DAILY 1 TABLET 269314 RxNorm TAKE 1 TABLET ORAL DAILY Keflex 500MG Oral Capsule 10/18/2022 Unknown ORAL FOUR TIMES A DAY 1 CAPSULE 306300 RxNorm TAKE 1 CAPSULE ORAL FOUR TIMES A DAY Ciprofloxacin 500MG Oral Tablet 10/29/2022 11/01/2022 ORAL TWICE A DAY 1 TABLET 705465 RxNorm TAKE 1 TABLET ORAL TWICE A [...] Date Status Code Code System PNEUMONIA active 105862132 SNOMED-CT PLEURISY active 959116588 SNOMED-CT VICKI - ACUTE KIDNEY INJURY active 1466 9001 SNOMED-CT HYPERTENSION active 94241143 SNOMED- CT CKD STAGE 3 active 881782889 SNOMED-C T 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 42286474 SNOMED-C T 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 367841084 SNOMED-CT BPH 11/23/2021 resolved 819718385 SNOMED-CT DVT OF LEG 11/23/2021 resolved 116581311 SNOMED-C T Allergies and Adverse Reactions Allergy Substance Reaction Severity Start Date Concern Status Code Code System HONEY SOB (SNOMED-CT: 354256516) Active 762169378 SNOMED-CT No Known Drug Allergies Active 801395353 SNOMED-CT Plan of Treatment CT CHEST W/O CONTRAST 06/12/2022 Encounters Encounter Diagnosis Start Date Code Code Sys tem Tubulo-interstitial nephriti s, not specified as acute or chronic 10/18/2022 SNOMED-CT Personal Care Team Section Performer Name Performer Role Active Date Inactive Da te
--- OUTSIDE RECORDS SUMMARY | 2024-04-27 13:30 | XMS_ITS | Clinical Summary ---
Author Organization [facility] Address [address] [place] [address] Care Team Providers Care Frog Catcher Name Role Phone None, Provider Primary Care Provider Unavailabl e Allergies Active Allergy Reactions Criticality Noted Date Comments Other - See Comments Medium 10/28/2023 ginsing Medications benazepriL (LOTENSIN) 10 mg tablet Take 2 Tablets by mouth daily. Active rivaroxaban (XARELTO) 15 mg tablet tablet Take 1 Tablet by mouth daily. Active amLODIPine (NORVASC) 5 mg tablet Take 1 Tablet by mouth at bedtime. Active Active Problems Patient Care Coordination No te Formatting of this note migh t be different from the original. Patient has given permission for [facility] to verbally discuss the following information with Roshan Larsen who has the following relationship to the patient: caregiver :friend Scheduling/Appt/Billing/Payment Information (does not include clinical information unless specifically indicated with separate option) Medical Information including symptoms, diagnosis, medications, test results and treatment plan (does not include Mental Health unless specifically indicated with separate option) Permission remains in effect until the patient elects to revoke it. No additional problems on file Social History Tobacco Use Types Packs/Day Years Used Date Smoking Tobacco: Never Assessed Interpersonal Safety Answer Date Record ed Physically Hurt Never 05/16/2020 Verbally Threaten Not on file 05/16/2020 Sex and Gender Information Value Date Recorded Sex Assigned at Not on file Legal Sex Male 17:46 EST Gender Identity Not on file Sexual Orientation Not on file Plan of Treatment Health Maintenance Due Date Last Done Comments Fall Risk Screening 2015 COVID-19 Vaccine ( season) 2023 RSV Immunization ( o r 60+ Years) (1 - 1-dose 75+ series) 2025 Hepatitis C Screen Completed 10/30/2020 Procedures Procedure Name Priority Date/Time Associated Diagnosis Comments HEPATITIS C AB W REFLEX TO HCV RNA BY PCR Routine 10/30/2020 14:25 EDT from Last 3 Months or Most Recently Relevant to Health Maintenance Results * HEPATITIS C AB W REFLEX TO HCV RNA BY PCR (10/30/2020 14:25 EDT) Hep C Antibody Negative Negative 11/01/2020 9:52 EDT [facility] Blood VENOUS BLOOD / Unknown 10/30/2020 14:25 EDT 10/31/2020 15:54 EDT us Provider Outr Resulting Lab CHEMISTRY & BLOOD GA S ORDERABLES Final Result [facility] [address] [place] [address] from Last 3 Months or Most Recently Relevant to Health Maintenance Insurance MEDICARE MEDICAID [place] Care Teams Frog Catcher Relationship Specialty Start Date End Date None, Provider PCP - General 09/29/23
--- OUTSIDE RECORDS SUMMARY | 2024-04-27 13:31 | XMS_ITS | Referral Summary ---
Author Organization [facility] Address [address] [place] [address] Care Team Providers Care Farmhand Name Role Phone None, Provider Primary Care [...] original. Patient has given permission for [facility] to verbally discuss the following information with [...] Orientation Not on file Plan of Treatment Not on file Procedures Procedure Name Priority Date/Time Associated Diagnosis Comments HEPATITIS C AB W REFLEX TO HCV RNA BY PCR Routine 10/30/2020 14:25 EDT from Last 3 Months or Most Recently Relevant to Health Maintenance Results * HEPATITIS C AB W REFLEX TO HCV RNA BY PCR (10/30/2020 14:25 EDT) Hep C Antibody Negative Negative 11/01/2020 9:[address] [facility] Blood VENOUS BLOOD / Unknown 10/30/2020 14:25 EDT 10/31/2020 15:54 EDT us Provider Outr Resulting Lab CHEMISTRY & BLOOD GA S ORDERABLES Final Result [facility] [address] [place] [address] from Last 3 Months or Most Recently Relevant to Health Maintenance Insurance MEDICARE MEDICAID [place] Care Teams Farmhand Relationship Specialty Start Date End Date None, Provider PCP - General 09/29/23
--- OUTSIDE RECORDS SUMMARY | 2024-04-27 13:31 | XMS_ITS | Encounter Summary ---
Author Organization [facility] Address [address] [place] [address] Care Team Providers Care Breakdown Person Name Role Phone None, Provider Primary Care Provider Unavailabl e Reason for Visit * Reason Comments New Patient Visit * Referral (Routine) - Authorization Not Required Specialty Diagnoses / Procedures [facility] Referred To Contact Urology Diagnoses Benign prostatic hyperplasia with lower urinary tract symptoms Beckie Bautista MD [address] [place] [address] Phone: tel: fax: [facility] [address] [place] [address] Phone: tel: fax: Referral ID Status Reason Start Date Expiration Date Visits Requested Visits Authorized [id number] Authorization Not Required 1 1 Encounter Details Date Type Department Care Team (Late st Contact Info) Description 10/28/2023 15:00 EDT Office Visit [facility] [address] [place] [phone] Asher Stephens MD [address] [place] [address] [address] [place] [address] Incomplete bladder emptying (Primary Dx) Social History Tobacco Use Types Packs/Day Years Used Date Smoking Tobacco: Never Assessed Interpersonal Safety Answer Date Record ed Physically Hurt Never 05/16/2020 Verbally Threaten Not on file 05/16/2020 Sex and Gender Information Value Date Recorded Sex Assigned at Not on file Legal Sex Male 17:46 EST Gender Identity Not on file Sexual Orientation Not on file documented as of this encounter Ordered Prescriptions Prescription Sig Dispense Quantity Refills Last Filled Start Date End Date cephalexin (KEFLEX) 500 mg capsule Take 1 Capsule by mouth 2 times daily for 20 days. 20 Capsule 1 10/28/2023 4 cephalexin (KEFLEX) 500 mg capsule Take 1 Capsule by mouth 2 times daily for 10 days. 20 Capsule 1 10/28/2023 4 documented in this encounter Progress Notes * Vickie Jones RN - 10/28/2023 1500 EDT Chart Prep Reason for Visit: bph/luts, uti's. 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 Not sure if finastereride ever started. Hx turp 15-20 yrs ago...declines bph meds.. Int CIC Lab Results Component Value Date PSA 1.2 09/15/2023 PSA 1.0 05/29/2022 * Asher Stephens MD - 10/28/2023 1500 EDT Chief Complaint: Chief Complaint Patient presents with New Patient Visit Reason for Consult: Urology was asked to see Mki at the request of Provider Reginaldo for evaluation of slow urinary stream. HPI: Mik is a 73 y.o. male with previous TURP about 15 years ago in [place]. States he hadvery good improvement in urination until a couple of years ago. Eventually he saw Dr. Narvaez. He wasinstructed to perform CIC daily to empty the bladder, he states. He only does CIC 1x/week: prefers not more often because he finds it uncomfortable. He performs CIC post void: residual volumes rangedtypically about 200-250 cc. Last week however the PVR was only 40 cc. Last cath attempt resulted insome blood and cloudy urine. He resumed some left over antibiotics from previous infection: he believes this is Keflex. Today has negative UA with bladder scan 236 cc. No gross hematuria, fever. Has not had cysto since his symptoms worsened. Has been offered tamsulosin and finasteride: declines Rx. 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 . There is no problem list on file for this patient. PMH PSH No past medical history on file. No past surgical history on file. Social History Family History Social History Tobacco Use Smoking status: Not on file Smokeless tobacco: Not on file Substance Use Topics Alcohol use: Not on file No family history on file. Medications Current Outpatient Medications: amLODIPine (NORVASC) 5 mg tablet, Take 1 Tablet by mouth at bedtime. (Patient not taking: Reported on 10/28/2023), Disp: , Rfl: benazepriL (LOTENSIN) 10 mg tablet, Take 2 Tablets by mouth daily., Disp: , Rfl: cephalexin (KEFLEX) 500 mg capsule, TAKE 1 CAPSULE BY MOUTH EVERY 12 HOURS FOR 14 DAYS, Disp: , Rfl: rivaroxaban (XARELTO) 15 mg tablet tablet, Take 1 Tablet by mouth daily., Disp: , Rfl: Allergies Allergies Allergen Reactions Other - See Comments ginsing Review of Systems: Review of Systems Constitutional: Negative. HENT: Negative. Eyes: Negative. Respiratory: Negative. Cardiovascular: Negative. Gastrointestinal: Negative. Genitourinary: Positive for dysuria and frequency. Musculoskeletal: Positive for back pain and joint pain. Skin: Negative. Neurological: Negative. Endo/Heme/Allergies: Negative. Psychiatric/Behavioral: Negative. Objective/Physical Exam: Vital Signs: There were no vitals taken for this visit. Exam: Constitutional: Alert, in no distress. Respiratory: Respirations unlabored. Cardiovascular: Pulse regular. Gastrointestinal: Abdomen soft, non tender. Renal: No CVA tenderness. Genital: deferred Rectal: deferred Musculoskeletal: Extremities warm without edema. Skin: Skin warm and dry. Neuro: alert and oriented Data Review: NA Labs: CBC: No results found for: WBC, RBC, HGB, HCT, MCV, MCH, MCHC, PLT, NEUTROABS, SEDRATE BMP: No results found for: NA, K, CL, CO2, BUN, CREATININE, GLUCOSEFINGE, CALCIUM, MG, PHOS, LABALBU U/A: No results found for: CLARITYU, LABSPEC, PHUR, GLUCOSEU, BILIRUBINUR, KETONES, BLOODU, PROTEINUR Other Studies: N/A Impression: Worsening urinary symptoms : remote hx TURP. Declines medications for elevated PVR. On weekly CIC: most recent cath attempt resulted in gross hematuria. On Keflex. Negative UA today. Planoffice cystoscopy. He is amenable. Alert and comfortable today. Suggestions/Recommendations: as above. Continue Keflex for a total of one week. Only use single-usecatheters. See back for cystoscopy. Asher Stephens MD FACS documented in this encounter Plan of Treatment Not on file documented as of this encounter Procedures Procedure Name Priority Date/Time Associated Diagnosis Comments UROLOGY BLADDER SCAN Routine 10/29/2023 Incomplete bladder emptying POCT URINALYSIS Routine 10/29/2023 Incomplete bladder emptying documented in this encounter Results * UROLOGY BLADDER SCAN (10/29/2023) Bladder Scan 236 ml's [facility] P OINT OF CARE Urine Asher Stephens MD UROLOGY ORDERABLES Final Result [facility] POINT OF CARE * (ABNORMAL) POCT URINALYSIS, CLINITEK NON-INTERFACED (10/29/2023) Color, UA Yellow Yellow, Colorless [facility] POINT OF CARE Clarity, UA Clear Clear [facility] PO INT OF CARE Glucose, UA Negative Negative mg/dL [facility] POINT OF CARE Bilirubin, UA Negative Negative [facility] POINT OF CARE Ketones, UA Negative Negative mg/dL [facility] POINT OF CARE Spec Grav, UA 1.025 1.001 - 1.030 [facility] POINT OF CARE Blood, UA Trace(A) Negative [facility] POIN T OF CARE pH, UA 5.5 <=8.5 [facility] POIN T OF CARE Protein, UA Negative Negative mg/dL [facility] POINT OF CARE Urobilinogen, UA 0.2 0.2 - 1.0 E.U./dL [facility] POINT OF CARE Nitrite, UA Negative Negative [facility] PO INT OF CARE Leuk Esterase Negative Negative [facility] POINT OF CARE Comment [facility] POIN T OF CARE Urine URINE SPECIMEN OBTAINED BY CLEAN CATCH PROCEDURE / Unknown 10/29/2023 us Asher Stephens MD POINT OF CARE TEST ORDERABLES Fi nal Result [facility] POINT OF CARE documented in this encounter Visit Diagnoses Diagnosis Incomplete bladder emptying- Primary documented in this encounter Discontinued Medications Medication Sig Discontinue Reason Start Date End Da te cephalexin (KEFLEX) 500 mg capsule TAKE 1 CAPSULE BY MOUTH EVERY 12 HOURS FOR 14 DAYS Reorder 07/29/2023 10/28/2023 cephalexin (KEFLEX) 500 mg capsule Take 1 Capsule by mouth 2 times daily for 10 days. 10/28/2023 10/28/2023 documented as of this encounter Historical Medications * This list may reflect changes made after this encounter. amLODIPine (NORVASC) 5 mg tablet Take 1 Tablet by mouth at bedtime. cephalexin (KEFLEX) 500 mg capsule TAKE 1 CAPSULE BY MOUTH EVERY 12 HOURS FOR 14 DAYS 07/29/2023 10/28/2023 added in this encounter Care Teams Breakdown Person Relationship Specialty Start Date End Date None, Provider PCP - General 09/29/23 documented as of this encounter
--- OUTSIDE RECORDS SUMMARY | 2024-04-27 13:31 | XMS_ITS | Encounter Summary ---
Author Organization [facility] Address [address] [place] [address] Care Team Providers Care Special Procedures Tech Name Role Phone None, Provider Primary Care Provider Unavailabl e Encounter Details Date Type Department Care Team (Late st Contact Info) Description 09/16/2023 Lab Requisition [facility] Pathology & Laboratory Medicine - [facility] [address] [place] [address] Outr Resulting Lab, Provider Social History Tobacco Use Types Packs/Day Years Used Date Smoking Tobacco: Never Assessed Interpersonal Safety Answer Date Record ed Physically Hurt Never 05/16/2020 Verbally Threaten Not on file 05/16/2020 Sex and Gender Information Value Date Recorded Sex Assigned at Not on file Legal Sex Male 17:46 EST Gender Identity Not on file Sexual Orientation Not on file documented as of this encounter Plan of Treatment Not on file documented as of this encounter Procedures Procedure Name Priority Date/Time Associated Diagnosis Comments PSA TOTAL, DIAGNOSTIC Routine 09/15/2023 16:50 EDT documented in this encounter Results * PSA TOTAL, DIAGNOSTIC (09/15/2023 16:50 EDT) PSA 1.2 <=6.5 ng/mL 09/16/2023 18:19 EDT [facility] Blood VENOUS BLOOD / Unknown 09/15/2023 16:50 EDT 09/16/2023 16:54 EDT Narrative [facility] - 09/16/2023 18:19 EDT NOTE: Serum PSA concentration should not be interpreted as absolute evidence for the presence or absence of malignant disease. Assayed on Siemens ADVIA Centaur XPT using chemiluminescent technology.??Values obtained by using different assay methods cannot be used interchangeably. us Provider Outr Resulting Lab CHEMISTRY & BLOOD GA S ORDERABLES Final Result [facility] [address] [place] [address] documented in this encounter Visit Diagnoses Not on filedocumented in this encounter Care Teams Special Procedures Tech Relationship Specialty Start Date End Date None, Provider PCP - General 09/29/23 documented as of this encounter
--- OUTSIDE RECORDS SUMMARY | 2024-04-27 13:31 | XMS_ITS | Encounter Summary ---
Author Organization [facility] Address [address] [place] [address] Care Team Providers Care Inspectors And Regulatory Officers Name Role Phone None, Provider Primary Care Provider Unavailabl e Encounter Details Date Type Department Care Team (Late st Contact Info) Description 10/31/2020 Lab Requisition [facility] Pathology & Laboratory Medicine - [facility] [address] [place] [address] Outr Resulting Lab, Provider Social [...] RNA BY PCR Routine 10/30/2020 14:25 EDT documented in this encounter Results * HEPATITIS C AB W REFLEX TO HCV RNA BY PCR (10/30/2020 14:25 EDT) Hep C Antibody Negative Negative 11/01/2020 9:52 EDT [facility] Blood VENOUS BLOOD / Unknown 10/30/2020 14:25 EDT 10/31/2020 15:54 EDT us Provider Outr Resulting Lab CHEMISTRY & BLOOD GA S ORDERABLES Final Result Performing Organization Address City/State/[facility] Co de Phone Number [facility] [address] [place] [address] documented in this encounter Visit Diagnoses Not on filedocumented in this encounter Care Teams Inspectors And Regulatory Officers Relationship Specialty Start Date End Date None, Provider PCP - General 09/29/23 documented as of this encounter
--- OUTSIDE RECORDS SUMMARY | 2024-04-27 13:31 | XMS_ITS | Encounter Summary ---
Author Organization [facility] Address [address] [place] [address] Care Team Providers Care Pipe Or Steam Fitter Furnace Installer Name Role Phone None, Provider Primary Care Provider Unavailabl e Encounter Details Date Type Department Care Team (Late st Contact Info) Description 05/15/2020 Lab Requisition [facility] Pathology & Laboratory Medicine - [address] [address] Outr Resulting Lab, Provider Social History [...] Procedure Name Priority Date/Time Associated Diagnosis Comments ZZCOVID-19 TEST [facility] PCR Today 05/14/2020 11:15 EST COVID-19 TESTING Routine 05/14/2020 11:1 5 EST documented in this encounter Results * COVID-19 TEST [facility] PCR (05/14/2020 11:15 EST) Swab ENTIRE NASOPHARYNX / Unknown 05/14/2020 11:15 EST 05/15/2020 21:05 EST us Provider Outr Resulting Lab MICROBIOLOGY - GENER AL ORDERABLES Final Result [facility] [address] [place] [address] * COVID-19 TESTING (05/14/2020 11:15 EST) COVID-19 rt-PCR Result Negative Negative 05/16/2020 14:14 EST [facility] Comment: This test has not been FDA cleared or approved. This test has been authorized by FDA under an EUA for use by authorized laboratories. This test has been authorized only for detection of nucleic acid from 2019-nCoV, not for any other viruses or pathogens. This test is only authorized for the duration of the declaration that circumstances exist justifying the authorization of emergency use of in vitro diagnostic tests for detection and/or diagnosis of 2019-nCoV under section 564(b)(1) of Act, 21 U.S.C ?? 360bbb-3(b) (1), unless the authorization is terminated or revoked sooner. Negative results do not preclude 2019-nCoV infection and should not be used as the sole basis for treatment or other patient management decisions. Negative results must be combined with clinical observations, patient history, and epidemiological information. This test was developed and its performance characteristics determined by [facility]. It has not been cleared or approved by the US Food and Drug Administration. FDA does not require this test to go through premarket FDA review. This test is used for clinical purposes. It should not be regarded as investigational or for research. This laboratory is certified under the Clinical Laboratory Improvement Amendments (CLIA) as qualified to perform high complexity clinical laboratory testing. This test is based on the [facility] COVID-19 Emergency Use Authorization (EUA) assay, with minor modification as defined by the FDA Performed on the ZanAquao 7 Flex RT-PCR System. Performing Lab [facility] Lab 05/16/2020 14:14 EST [facility] Swab 05/14/2020 11:1 5 EST 05/15/2020 21:05 EST us Provider Outr Resulting Lab MICROBIOLOGY - GENER AL ORDERABLES Final Result [facility] [address] [place] [address] documented in this encounter Visit Diagnoses Not on filedocumented in this encounter Care Teams Pipe Or Steam Fitter Furnace Installer Relationship Specialty Start Date End Date None, Provider PCP - General 09/29/23 documented as of this encounter
--- OUTSIDE RECORDS SUMMARY | 2024-04-27 13:31 | XMS_ITS | Encounter Summary ---
Author Organization [facility] Address [address] [place] [address] Care Team Providers Care Team Truck Driver Name Role Phone None, Provider Primary Care Provider Unavailabl e Encounter Details Date Type Department Care Team (Late st Contact Info) Description 05/30/2022 Lab Requisition [facility] Pathology & Laboratory Medicine - [facility] [address] [place] [address] Outr Resulting Lab, Provider Social [...] Associated Diagnosis Comments PSA TOTAL, DIAGNOSTIC Routine 05/29/2022 12:15 EST documented in this encounter Results * PSA TOTAL, DIAGNOSTIC (05/29/2022 12:15 EST) PSA 1.0 <=6.5 ng/mL 06/01/2022 10:23 EST [facility] Blood VENOUS BLOOD / Unknown 05/29/2022 12:15 EST 05/31/2022 16:26 EST Narrative [facility] - 06/01/2022 10:23 EST NOTE: Serum PSA concentration should not be interpreted as absolute evidence for the presence or absence of malignant disease. Assayed on Siemens ADVIA Centaur XPT using chemiluminescent technology.??Values obtained by using different assay methods cannot be used interchangeably. us Provider Outr Resulting Lab CHEMISTRY & BLOOD GA S ORDERABLES Final Result [facility] [address] [place] [address] documented in this encounter Visit Diagnoses Not on filedocumented in this encounter Care Teams Team Truck Driver Relationship Specialty Start Date End Date None, Provider PCP - General 09/29/23 documented as of this encounter
--- OUTSIDE RECORDS SUMMARY | 2024-04-27 13:31 | XMS_ITS | Encounter Summary ---
Author Organization [facility] Address [address] [place] [address] Care Team Providers Care Emergency Medical Technician/Driver Name Role Phone Unavailable Primary Care Provider Unavailabl e Reason for Visit * Reason Onset Date Comments Appointment Related 07/09/2020 Encounter Details Date Type Department Care Team (Late st Contact Info) Description 07/09/2020 Telephone [facility] Interventional Rad Clinic - [place] [phone] Herve Ambrose MD [address] [place] [address] [address] [place] [address] Appointment Related Social History Tobacco Use Types Packs/Day Years Used Date Smoking Tobacco: Never Assessed Interpersonal Safety Answer Date Record ed Physically Hurt Never 05/16/2020 Verbally Threaten Not on file 05/16/2020 Sex and Gender Information Value Date Recorded Sex Assigned at Not on file Legal Sex Male 17:46 EST Gender Identity Not on file Sexual Orientation Not on file documented as of this encounter Miscellaneous Notes * Telephone Encounter - Kisha Patel - 07/09/2020 0846 EDT Called referring office regarding lung biopsy referral. Per Dr. Herve Ambrose, biopsy request not approved per Dr. Ambrose's note, No priors, recommend a short interval f/u CT (August 24) to assess intervalchange, as this may be inflammatory. ??If larger will biopsy. Explained to referring office, biopsy referral will be closed at this time if they have any questions, please call IR on-call attending for a provider to provider discussion. documented in this encounter Plan of Treatment Not on file documented as of this encounter Visit Diagnoses Not on filedocumented in this encounter
--- OUTSIDE RECORDS SUMMARY | 2024-04-27 13:31 | XMS_ITS | Encounter Summary ---
Author Organization [facility] Address [address] [place] [address] Care Team Providers Care Traffic Signal Supervisor Maintenance Name Role Phone None, Provider Primary Care Provider Unavailabl e Encounter Details Date Type Department Care Team (Late st Contact Info) Description 10/27/2023 Abstract [facility]rology Clinic [address], [place] [phone] Vickie Jones, NHAN Social History Tobacco Use Types Packs/Day Years [...] Diagnoses Not on filedocumented in this encounter Historical Medications * This list may reflect changes made after this encounter. rivaroxaban (XARELTO) 15 mg tablet tablet Take 1 Tablet by mouth daily. benazepriL (LOTENSIN) 10 mg tablet Take 2 Tablets by mouth daily. added in this encounter Care Teams Traffic Signal Supervisor Maintenance Relationship Specialty Start Date End Date None, Provider PCP - General 09/29/23 documented as of this encounter
--- OUTSIDE RECORDS SUMMARY | 2024-04-27 13:31 | XMS_ITS | Encounter Summary ---
Author Organization [facility] Address [address] [place] [address] Care Team Providers Care Rn Liaison Name Role Phone Unavailable Primary Care Provider Unavailabl e Reason for Visit * (Routine) - Receiving Office to Obtain Authorization Specialty Diagnoses / Procedures Referred By Charline nguyen Referred To Contact Procedures CT OUTSIDE IMAGES CHEST Adrianne Berumen MD Referral ID Status Reason Start Date Expiration Date Visits Requested Visits Authorized [id number] Receiving Office to Obtain Authorization 07/03/2020 1 1 Encounter Details Date Type Department Care Team (Latest Contact Info) Description 05/27/2020 - 05/27/2020 23:59 EST Hospital Encounter [facility] Secondary Reads [place] Discharge Disposition: Home or Self Care Social History Tobacco Use Types Packs/Day Years Used Date Smoking Tobacco: Never Assessed Interpersonal Safety Answer Date Record ed Physically Hurt Never 05/16/2020 Verbally Threaten Not on file 05/16/2020 Sex and Gender Information Value Date Recorded Sex Assigned at Not on file Legal Sex Male 17:46 EST Gender Identity Not on file Sexual Orientation Not on file documented as of this encounter Discharge Disposition Disposition Code Departure Means Destination Home or Self Care documented in this encounter Plan of Treatment Not on file documented as of this encounter Procedures Procedure Name Priority Date/Time Associated Diagnosis Comments CT OUTSIDE IMAGES CHEST Routine 07/03/2020 11:45 EDT documented in this encounter Results * CT OUTSIDE IMAGES CHEST (07/03/2020 11:45 EDT) Narrative 07/03/2020 11:45 EDT This is a non-reportable exam. us Adrianne Smith MD IMG OTHER IMAGING ORD ERABLES Final Result documented in this encounter Visit Diagnoses Not on filedocumented in this encounter
--- OUTSIDE RECORDS SUMMARY | 2024-04-27 13:31 | XMS_ITS | Encounter Summary ---
Author Organization [facility] Address [address] [place] [id number] Care Team Providers Care Digital Marketing Lead Name Role Phone None, Provider Primary Care Provider Unavailabl e Reason for Visit * Reason Comments Cystoscopy Encounter Details Date Type Department Care Team (Latest Contact Info) Description 11/18/2023 16:00 EDT Procedure visit [facility] [address] [place] [address] Asher Stephens MD [address] [facility] [address] [place] [address] Benign prostatic hyperplasia with incomplete bladder emptying (Primary Dx) Social History Tobacco [...] on file documented as of this encounter Progress Notes * Danii Davidson, NHAN - 11/18/2023 1600 EDT Chart Prep Reason for Visit: cysto Last Seen: 10/28/23 Other pertinent information from chart: Worsening urinary symptoms : remote hx TURP. Declines medications for elevated PVR. On weekly CIC:most recent cath attempt resulted in gross hematuria. On Keflex. Negative UA today. Plan office cystoscopy. * Kailee Maurer RN - 11/18/2023 1600 EDT Reason for Cystoscopy: incomplete bladder emptying November 18, 2023/16:05 Patient: Mik Dwyer Scope #: [id number] Has this been documented in the log: Yes Procedure Time Out: Procedure: Cystoscopy Date & Time: 11/18/2023 16:06 Patient Identified: Mik Dwyer , 1950 Agreement on procedure to be done was verified. Correct Patient Position verified. Allergies were verified. Accurate Procedure Consent Form verified and signed.Procedure Side and Site verified. Time Out Team Members: Dr. Asher Stephens MD & Kailee Maurer RN * Asher Stephens MD - 11/18/2023 1600 EDT History of TURP, incomplete emptying, on CIC, occasional hematuria with catheterization. Plan cystoscopy. Negative UA today. After risks of bleeding, infection and urethral irritation were reviewed, informed consent was obtained. The patient was placed in frogleg position and the genitalia prepped in sterile fashion. Thecystoscope was navigated through the urethra and into bladder without difficulty. Circumferential panendoscopy revealed no foreign bodies, stones or mucosal abnormalities. Both ureteral orifices werein the expected position effluxing clear urine. The scope was retroflexed and no abnormalities wereseen at the bladder neck. The scope was slowly removed and no urethral abnormalities were seen. Thepatient tolerated the procedure well. Has residual or regrowth of prostate adenoma: states TURP was about 15 years ago. No stricture or BNC. No bladder lesion. He would like to consider repeat prostate surgery. Will return for TRUS: prostate measurements, then discuss options. documented in this encounter Miscellaneous Notes * Addendum Note - Kailee Maurer RN - 11/18/2023 1600 EDTAddended by: KAILEE MAURER on: 11/18/2023 16:35 Modules accepted: Orders documented in this encounter Plan of Treatment Not on file documented as of this encounter Procedures Procedure Name Priority Date/Time Associated Diagnosis Comments POCT URINALYSIS Routine 11/18/2023 Benign prostatic hyperplasia with incomplete bladder emptying documented in this encounter Results * POCT URINALYSIS, CLINITEK NON-INTERFACED (11/18/2023) Color, UA Yellow Yellow, Colorless [facility] POINT OF CARE Clarity, UA Clear Clear [facility] PO INT OF CARE Glucose, UA Negative Negative mg/dL [facility] POINT OF CARE Bilirubin, UA Negative Negative [facility] POINT OF CARE Ketones, UA Negative Negative mg/dL [facility] POINT OF CARE Spec Grav, UA 1.020 1.001 - 1.030 [facility] POINT OF CARE Blood, UA Negative Negative [facility] POIN T OF CARE pH, UA 6.0 <=8.5 [facility] POIN T OF CARE Protein, UA Negative Negative mg/dL [facility] POINT OF CARE Urobilinogen, UA 0.2 0.2 - 1.0 E.U./dL [facility] POINT OF CARE Nitrite, UA Negative Negative [facility] PO INT OF CARE Leuk Esterase Negative Negative [facility] POINT OF CARE Comment [facility] POIN T OF CARE Urine URINE SPECIMEN OBTAINED BY CLEAN CATCH PROCEDURE / Unknown 11/18/2023 us Asher Stephens MD POINT OF CARE TEST ORDERABLES Fi nal Result [facility] documented in this encounter Visit Diagnoses Diagnosis Benign prostatic hyperplasia with incomplete bladder emptying- Primary documented in this encounter Care Teams Digital Marketing Lead Relationship Specialty Start Date End Date None, Provider PCP - General 09/29/23 documented as of this encounter
--- OUTSIDE RECORDS SUMMARY | 2024-04-27 13:31 | XMS_ITS ---
Author Organization Unknown Address [address] [place] [phone] Phone Care Team Providers Care Architect Intern Name Role Phone TOI HART MD Attending Unavailable HELLEN ELIZABETH MARKETING ADMINISTRATOR ER Unavailable JOSÉ LUIS DC Primary Unavailable Results US DVT UNI RIGHT - Completed : 10/10/2020 16:05 LOINC: 94213-1 RIGHT LEG ULTRASOUND: Sibley scale, color, and Doppler imaging of the deep venous system of the right lower extremity was performed.?? Prior study of 05/14/20 was reviewed. On the present study there is intraluminal thrombus within the popliteal vein, this over a distance of 3 cm. There does not appear to be intraluminal thrombus within the deep venous system above this level in the thigh. Subpopliteal visualized posterior tibial vein appears patent. IMPRESSION:DVT evident at the level of the right popliteal vein. Dictated by: DEREJE CUENCA M.D. RADIOLOGIST Transcribed by: ZAIN 10/11/20/12:14 D , October 10, 2020 7:02:09 PM [id number] Electronically Reviewed and Signed By: HANNAH CUENCA M.D. RADIOLOGIST 10/11/20 12:33 Copy for: TOI HART MD via modem DISCHARGED Social History Type Status Start Date End Date Code Code Syst em Smoking History Never smoker (Never Smoked) 253892778 SNOMED CT Smoking History Former smoker 7499089 SNOMED CT Sex Male Medications Medication Start Date End Date Route Frequency Dose Code Code System Medication Instructions Home Meds amLODIPine Besylate 5MG Oral Tablet 11/25/2021 11/25/2021 ORAL BEDTIME 5 MILLIGRAMS 562887 RxNorm TAKE 5 MILLIGRAMS ORAL BEDTIME Xarelto 15MG Oral Tablet 11/25/2021 10/18/2022 ORAL TWICE A DAY 15 TABLET [id number] RxNorm TAKE 15 TABLET ORAL TWICE A DAY for 20 days then 20 mg each evening Tamsulosin HCl 0.4MG Oral Capsule 11/25/2021 10/18/2022 ORAL BEDTIME 0.4 MILLIGRAMS [id number] RxNorm TAKE 0.4 MILLIGRAMS ORAL BEDTIME Xarelto 20MG Oral Tablet 11/25/2021 11/26/2021 ORAL EVERY EVENING 1 TABLET [id number] RxNorm TAKE 1 TABLET ORAL EVERY EVENING to start after 20 days of 15 mg twice a day (should be on 12/16/2021) amLODIPine Besylate 5MG Oral Tablet 11/25/2021 11/26/2021 ORAL BEDTIME 5 MILLIGRAMS 871704 RxNorm TAKE 5 MILLIGRAMS ORAL BEDTIME Xarelto 20MG Oral Tablet 11/26/2021 Unknown ORAL DAILY 1 TABLET [id number] RxNorm TAKE 1 TABLET ORAL DAILY STARTING 12/16(After taking 15mg twice daily for 20 days) amLODIPine Besylate 5MG Oral Tablet 11/26/2021 11/26/2021 ORAL BEDTIME 5 MILLIGRAMS [id number] RxNorm TAKE 5 MILLIGRAMS ORAL BEDTIME amLODIPine Besylate 5MG Oral Tablet 11/26/2021 Unknown ORAL BEDTIME 5 MILLIGRAMS [id number] RxNorm TAKE 5 MILLIGRAMS ORAL BEDTIME Benazepril HCl AvPak 20MG Oral Tablet 11/26/2021 Unknown ORAL DAILY 1 TABLET [id number] RxNorm TAKE 1 TABLET ORAL DAILY Keflex 500MG Oral Capsule 10/18/2022 Unknown ORAL FOUR TIMES A DAY 1 CAPSULE 933289 RxNorm TAKE 1 CAPSULE ORAL FOUR TIMES A DAY Ciprofloxacin 500MG Oral Tablet 10/29/2022 11/01/2022 ORAL TWICE A DAY 1 TABLET [id number] RxNorm TAKE 1 TABLET ORAL TWICE A [...] Date Status Code Code System PNEUMONIA active 580272802 SNOMED-CT PLEURISY active 982644437 SNOMED-CT VICKI - ACUTE KIDNEY INJURY active 1466 9001 SNOMED-CT HYPERTENSION active 58574805 SNOMED- CT CKD STAGE 3 active 611232005 SNOMED-C T 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 25389935 SNOMED-C T 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 942953171 SNOMED-CT BPH 11/23/2021 resolved 712026353 SNOMED-CT DVT OF LEG 11/23/2021 resolved 354980101 SNOMED-C T Allergies and Adverse Reactions Allergy Substance Reaction Severity Start Date Concern Status Code Code System HONEY SOB (SNOMED-CT: 945710403) Active 076349002 SNOMED-CT No Known Drug Allergies Active 107884106 SNOMED-CT Plan of Treatment CT CHEST W/O CONTRAST 06/12/2022 Encounters Encounter Diagnosis Start Date Code Code Sys tem Acute embolism and thrombosis of right popliteal vein 10/10/2020 SNOMED-CT Personal Care Team Section Performer Name Performer Role Active Date Inactive Da elio
== END 2024-04-27 13:25 | disposition home or self-care (01) ==
LOC: NCHCN 13:24
PROVIDERS: PCP Family Medicine; Visit Provider Nurse Practitioner Family
DX: N39.0 Urinary tract infection, site not specified (principal); R82.89 Other abnormal findings on cytological and histological examination of urine
CPT/HCPCS: 87077; 87086

== ENCOUNTER 2024-05-30 16:21 | Outpatient (REF) | payer MEDICARE, SELFPAY | END 2024-05-30 16:22 | disposition home or self-care (01) | LOC: NCHCN 16:21 | PROVIDERS: PCP Family Medicine; Visit Provider Family Medicine | DX: R30.0 Dysuria (principal) | CPT/HCPCS: 87086 ==

== ENCOUNTER 2024-06-13 17:32 | Outpatient (REF) | payer MEDICARE, SELFPAY | END 2024-06-13 17:33 | disposition home or self-care (01) | LOC: NCHCN 17:32 | PROVIDERS: PCP Family Medicine; Visit Provider Nurse Practitioner Family | DX: N39.0 Urinary tract infection, site not specified (principal) | CPT/HCPCS: 87086 ==

== ENCOUNTER 2024-06-21 22:39 | Outpatient (REF) | payer MEDICARE, SELFPAY | END 2024-06-21 22:40 | disposition home or self-care (01) | LOC: NCHCN 22:39 | PROVIDERS: PCP Family Medicine; Visit Provider Family Medicine | DX: R39.15 Urgency of urination (principal) | CPT/HCPCS: 87077; 87086; 87186 ==

== ENCOUNTER 2024-07-25 13:23 | Outpatient (REF) | payer MEDICARE, SELFPAY | END 2024-07-25 13:24 | disposition home or self-care (01) | LOC: NCHCN 13:23 | PROVIDERS: PCP Family Medicine; Visit Provider Family Medicine | DX: N39.0 Urinary tract infection, site not specified (principal) | CPT/HCPCS: 87077; 87086; 87186 ==

== ENCOUNTER 2024-08-14 18:46 | Outpatient (REF) | payer MEDICARE, SELFPAY | END 2024-08-14 18:47 | disposition home or self-care (01) | LOC: NCHCN 18:46 | PROVIDERS: PCP Family Medicine; Visit Provider Family Medicine | DX: N39.0 Urinary tract infection, site not specified (principal); R82.89 Other abnormal findings on cytological and histological examination of urine | CPT/HCPCS: 87077; 87086 ==

== ENCOUNTER 2024-09-14 18:45 | Outpatient (REF) | payer MEDICARE, SELFPAY | END 2024-09-14 18:46 | disposition home or self-care (01) | LOC: NCHCN 18:45 | PROVIDERS: PCP Family Medicine; Visit Provider Family Medicine | DX: R39.9 Unspecified symptoms and signs involving the genitourinary system (principal) | CPT/HCPCS: 87086 ==

== ENCOUNTER 2025-02-13 17:00 | Outpatient (REF) | payer MEDICARE, MEDICAID, SELFPAY | END 2025-02-13 17:01 | disposition home or self-care (01) | LOC: NCHCN 17:00 | PROVIDERS: PCP Family Medicine; Visit Provider Family Medicine | DX: N39.0 Urinary tract infection, site not specified (principal) | CPT/HCPCS: 87077; 87086; 87186 ==

== ENCOUNTER 2025-02-15 15:33 | Outpatient (REF) | payer MEDICARE, MEDICAID, SELFPAY ==
[2025-02-16 18:00] LABS: PSA, Screening 2.0 ng/mL (<=6.5)
== END 2025-02-15 15:34 | disposition home or self-care (01) ==
LOC: NCHCN 15:33
PROVIDERS: PCP Family Medicine; Visit Provider Family Medicine
DX: Z12.5 Encounter for screening for malignant neoplasm of prostate (principal)
CPT/HCPCS: 84153

== ENCOUNTER 2025-03-16 17:37 | Outpatient (REF) | payer MEDICARE, MEDICAID, SELFPAY ==
[2025-03-16 21:26] LABS: Glucose Negative (Negative)
[2025-03-16 21:35] LABS: C & S Indicated? Yes; RBC 0-2 HPF (0-2); WBC 20-50 HPF (0-5)
== END 2025-03-16 17:38 | disposition home or self-care (01) ==
LOC: NCHCN 17:37
PROVIDERS: PCP Family Medicine; Visit Provider Family Medicine
DX: N39.46 Mixed incontinence (principal)
CPT/HCPCS: 81003; 81015; 87086

== ENCOUNTER 2025-03-26 15:21 | Outpatient (REF) | payer MEDICARE, MEDICAID, SELFPAY ==
[2025-03-26 21:47] LABS: Anion Gap 7.6 mmol/L (3-11); BUN 31 mg/dL (9-23); CO2 21.4 mmol/L (20.0-31.0); Calcium 8.6 mg/dL (8.3-10.6); Chloride 115 mmol/L (98-107); Glucose 93 mg/dL (74-106); Potassium 4.6 mmol/L (3.5-5.1); Sodium 144 mmol/L (136-145)
[2025-03-26 21:54] LABS: Microalb ug/mg Crea 20.7 ug/mg Cr
== END 2025-03-26 15:22 | disposition home or self-care (01) ==
LOC: NCHCN 15:21
PROVIDERS: PCP Family Medicine; Visit Provider Internal Medicine
DX: R39.9 Unspecified symptoms and signs involving the genitourinary system (principal); I10 Essential (primary) hypertension
CPT/HCPCS: 80048; 82043; 82570; 87086